=== PATIENT | female | born 1950 | race Caucasian/White ===

== ENCOUNTER 2017-10-17 10:18 | Emergency (ER) | payer MEDICARE ==
[2017-10-17 10:31] VITALS: RESP 16
--- NOTE | 2017-10-17 11:18 | ED ---
General Adult HPI - General Chief complaint: Weakness Stated complaint: dizziness/not able to walk Time Seen by Provider: 10/17/17 10:41 Source: patient Mode of arrival: wheelchair Limitations: no limitations - History of Present Illness Initial comments: Is a 67 show failed a history of H of fibrillation on Zarrella toe and a pacemaker who presents emergency department for difficulty with ambulation. She states it started on October 03 and has gradually worsened. She states that she feels like she is very off balance when she emulate speech she's had a couple of falls in the last couple of weeks and feels like her legs are giving out on her at times. She states otherwise she feels completely normal. She states that she normally can ambulate without assistance. She states that she is very active and does go to the gym. She does not feel like it is a deconditioning problem. She's been seeing her primary doctor who performed a CAT scan yesterday that was negative. She's been treated for possible labyrinthitis and sinus infections on antibiotics. She was just started on a new antibiotic and steroids. She states that she feels like he she is worsening. She denies any dysphagia, dysarthria, diplopia. She denies any focal weakness in her upper extremities. No back pain. No other complaints. - Related Data Home Medications Medication Instructions Recorded Confirmed Carvedilol [Coreg] 25 mg PO BID 10/17/17 10/17/17 Enalapril [Vasotec] 10 mg PO BID 10/17/17 10/17/17 Furosemide [Lasix] 40 mg PO DAILY 10/17/17 10/17/17 Rivaroxaban [Xarelto] 20 mg PO AC-SUPPER 10/17/17 10/17/17 Vits A,C,E/Lutein/Minerals 1 tab PO DAILY 10/17/17 10/17/17 [Ocuvite with Lutein Tablet] Allergies Allergy/AdvReac Type Severity Reaction Status Date / Time No Known Allergies Allergy Verified 10/17/17 10:36 Review of Systems ROS Statement: Those systems with pertinent positive or pertinent negative responses have been documented in the HPI. ROS Other: All systems not noted in ROS Statement are negative. Past Medical History Past Medical History: Atrial Fibrillation History of Any Multi-Drug Resistant Organisms: None Reported Past Surgical History: Joint Replacement, Pacemaker Additional Past Surgical History / Comment(s): bilateral knee replacement Past Psychological History: No Psychological Hx Reported Smoking Status: Never smoker Past Alcohol Use History: None Reported Past Drug Use History: None Reported General Exam - General Exam Comments Initial Comments: Constitutional: Awake alert Appears comfortable Head: Normocephalic atraumatic Eyes: no conjunctival injection No scleral icterus EOMI, pupils are 4 mm reactive bilaterally Neck: No JVD Supple Heart: Regular rate rhythm normal S1-S2 no murmurs Lungs: Clear to auscultation bilaterally No wheezing No rales Abdomen: Soft nondistended nontender Extremities: Non edematous DP pulses intact Radial pulses intact Neuro: A&Ox3 cranial nerves II through XII are grossly intact, 5 out of 5 strength in upper and lower [place] bilaterally, 5 out of 5 strength with dorsiflexion and plantar flexion of the feet bilaterally, 2 out of 4 patellar reflexes bilaterally, sensation intact to light touch in all extremities, normal finger to nose and heel to wilson testing. The patient has a very unsteady gait when she ambulates and stumbles and was falls over. Very unsteady on her feet Psych: Appropriate mood and affect Limitations: no limitations Course Vital Signs 10/17/17 10:27 Temperature 98.3 F Pulse Rate 85 Respiratory 16 Rate Blood Pressure 146/94 O2 Sat by Pulse 98 Oximetry EKG Findings - EKG Comments: EKG Findings:: EKG is showing intrafibrillation with intermittent paced beats at a rate 89. No abnormal ST segment changes or T-wave or her QTC is 452. Other intervals normal. No ectopy. Medical Decision Making - Medical Decision Making This is a 67-year-old female who presents emergency department for difficulty with ambulation. I examination she was very unsteady when she walked. Spoke with neurology on-call about the case and he stated that since she is she cannot get an MRI. She needs to have her repeat CAT scan which was negative for stroke however did show sinusitis. I reviewed the case with the patient stated that she felt more comfortable standing the hospital because of her unsteadiness that we could keep her here however stated that she rather go home. Her primary doctor prescribed her antibiotics and steroids which she is going to start taking today. That would probably help her symptoms if she has vestibular neuritis. She needs follow-up with neurology and also ENT. He'll return emergency Department if she has worsening symptoms. All questions were answered. - Lab Data Result diagrams: 10/17/17 11:20 10/17/17 11:20 Lab Results 10/17/17 10/17/17 10/17/17 Range/Units 11:20 11:20 11:24 WBC 8.3 (3.8-10.6) k/uL RBC 5.34 (3.80-5.40) m/uL Hgb 15.8 (11.4-16.0) gm/dL Hct 50.2 H (34.0-46.0) % MCV 94.1 (80.0-100.0) fL MCH 29.6 (25.0-35.0) pg MCHC 31.4 (31.0-37.0) g/dL RDW 13.5 (11.5-15.5) % Plt Count 205 (150-450) k/uL Neutrophils % 69 % Lymphocytes % 22 % Monocytes % 5 % Eosinophils % 2 % Basophils % 1 % Neutrophils # 5.8 (1.3-7.7) k/uL Lymphocytes # 1.8 (1.0-4.8) k/uL Monocytes # 0.4 (0-1.0) k/uL Eosinophils # 0.2 (0-0.7) k/uL Basophils # 0.0 (0-0.2) k/uL Sodium 141 (137-145) mmol/L Potassium 4.6 (3.5-5.1) mmol/L Chloride 104 (98-107) mmol/L Carbon Dioxide 29 (22-30) mmol/L Anion Gap 8 mmol/L BUN 22 H (7-17) mg/dL Creatinine 1.02 (0.52-1.04) mg/dL Est GFR (MDRD) Af Amer >60 (>60 ml/min/1.73 sqM) Est GFR (MDRD) Non-Af 54 (>60 ml/min/1.73 sqM) Glucose 104 H (74-99) mg/dL Calcium 9.7 (8.4-10.2) mg/dL Magnesium 1.9 (1.6-2.3) mg/dL Total Bilirubin 0.8 (0.2-1.3) mg/dL AST 23 (14-36) U/L ALT 29 (9-52) U/L Alkaline Phosphatase 65 (38-126) U/L Total Protein 6.8 (6.3-8.2) g/dL Albumin 3.8 (3.5-5.0) g/dL Urine Color Light Yellow Urine Appearance Clear (Clear) Urine pH 5.0 (5.0-8.0) Ur Specific [place] 1.003 (1.001-1.035) Urine Protein Negative (Negative) Urine Glucose (UA) Negative (Negative) Urine Ketones Negative (Negative) Urine Blood Negative (Negative) Urine Nitrite Negative (Negative) Urine Bilirubin Negative (Negative) Urine Urobilinogen <2.0 (<2.0) mg/dL Ur Leukocyte Esterase Trace H (Negative) Urine WBC 1 (0-5) /hpf Ur Squamous Epith Cells <1 (0-4) /hpf Urine Mucus Rare H (None) /hpf Disposition Clinical Impression: Vertigo Disposition: HOME SELF-CARE Condition: Stable Instructions: Dizziness (ED) Referrals: Betsy Castillo MD [Primary Care Provider] - 1-2 days
[2017-10-17 11:51] LABS: Basophils % (A) 1 %; Eosinophils # (A) 0.2 k/uL (0-0.7); Eosinophils % (A) 2 %; HCT 50.2 % (34.0-46.0); HGB 15.8 gm/dL (11.4-16.0); Lymphocytes # (A) 1.8 k/uL (1.0-4.8); Lymphocytes % (A) 22 %; MCH 29.6 pg (25.0-35.0); MCHC 31.4 g/dL (31.0-37.0); MCV 94.1 fL (80.0-100.0); Mean Platelet Volume 7.5; Monocytes # (A) 0.4 k/uL (0-1.0); Monocytes % (A) 5 %; Neutrophils # (A) 5.8 k/uL (1.3-7.7); Neutrophils % (A) 69 %; Platelet Count 205 k/uL (150-450); RBC 5.34 m/uL (3.80-5.40); RDW 13.5 % (11.5-15.5); WBC 8.3 k/uL (3.8-10.6)
[2017-10-17 11:55] LABS: Appearance,Urine Clear (Clear); Bilirubin,Urine Negative (Negative); Blood,Urine Negative (Negative); Color,Urine Light Yellow; Glucose,Urine (UA) Negative (Negative); Ketones,Urine Negative (Negative); Leukocyte Esterase,Urine Trace (Negative); Mucus,Urine Rare /hpf; Nitrite,Urine Negative (Negative); Protein,Urine Negative (Negative); Specific Gravity,Urine 1.003 (1.001-1.035); Squamous Epithelial Cell,Urine <1 /hpf (0-4); Urobilinogen,Urine <2.0 mg/dL (<2.0); WBC,Urine 1 /hpf (0-5)
[2017-10-17 12:03] LABS: ALT 29 U/L (9-52); AST 23 U/L (14-36); Albumin 3.8 g/dL (3.5-5.0); Alkaline Phosphatase 65 U/L (38-126); Anion Gap 8 mmol/L; Blood Urea Nitrogen 22 mg/dL (7-17); Calcium 9.7 mg/dL (8.4-10.2); Carbon Dioxide 29 mmol/L (22-30); Chloride 104 mmol/L (98-107); Glucose 104 mg/dL (74-99); Magnesium 1.9 mg/dL (1.6-2.3); Potassium 4.6 mmol/L (3.5-5.1); Sodium 141 mmol/L (137-145); Total Bilirubin 0.8 mg/dL (0.2-1.3); Total Protein 6.8 g/dL (6.3-8.2)
--- NOTE | 2017-10-17 12:04 | CT ---
EXAMINATION TYPE: CT brain wo con DATE OF EXAM: 10/17/2017 COMPARISON: NONE HISTORY: Dizziness, difficulty ambulating CT DLP: 981.7 mGycm Automated exposure control for dose reduction was used. TECHNIQUE: Unenhanced CT brain was performed per standard protocol. FINDINGS: There is no acute intracranial hemorrhage, mass effect, or midline shift identified. The v entricles and sulci are within normal limits in size. The globes are intact. There is complete opaci fication of the left maxillary sinus and small degree of mucosal thickening in the ethmoid sinuses. R emainder of the paranasal sinuses are well aerated as are the mastoid air cells. The frontal sinuses are hypoplastic. Minimal atherosclerosis is seen of the intracranial vasculature. IMPRESSION: 1. No acute intracranial hemorrhage, mass effect, or midline shift is seen. 2. Complete opacification of the left maxillary sinus and minimal mucosal thickening of the ethmoid s inuses.
--- NOTE | 2017-10-17 12:09 | XR ---
EXAMINATION TYPE: XR lumbar spine 2 or 3V DATE OF EXAM: 10/17/2017 CLINICAL HISTORY: Lower extremity weakness TECHNIQUE: Frontal and lateral views of the lumbar spine were obtained COMPARISON: None FINDINGS: There are 5 lumbar type vertebral bodies identified. The lumbar spine shows satisfactory alignment without evidence of acute fracture or dislocation. Vertebral body heights and disk space he ights are within normal limits. Moderate multilevel degenerative changes of the visualized thoracolum bar and lumbosacral spine are seen as small anterior osteophytes, intervertebral disc space narrowing , facet arthropathy, endplate sclerosis. There is a mild levoscoliotic curvature of the lumbar spine. The overlying soft tissue appears unremarkable. IMPRESSION: 1. No acute fracture or dislocation is seen in the lumbar spine. 2. Moderate multilevel degenerative changes of the visualized thoracolumbar spine and levoscoliosis o f the lumbar spine.
[2017-10-17 12:44] VITALS: BP 141/70; PULSE 97; TEMP 97.1
== END 2017-10-17 12:44 | disposition home or self-care (01) ==
LOC: EC 10:18
DX: R42 Dizziness and giddiness (principal); R26.2 Difficulty in walking, not elsewhere classified; J32.9 Chronic sinusitis, unspecified; I48.91 Unspecified atrial fibrillation; Z95.0 Presence of cardiac pacemaker; Z96.653 Presence of artificial knee joint, bilateral; Z79.01 Long term (current) use of anticoagulants; Z79.899 Other long term (current) drug therapy
CPT/HCPCS: 36415; 70450; 72100; 80053; 81001; 83735; 85025; 93005; 99285

== ENCOUNTER 2017-12-05 13:52 | Inpatient (IN) | payer MEDICARE ==
[2017-12-05] MEDS ORDERED: ACETAMINOPHEN TAB 500 MG TAB PO STA (14:20)
[2017-12-05] MEDS ORDERED: IBUPROFEN 600 MG TAB PO STA (14:20)
--- NOTE | 2017-12-05 14:32 | ED ---
General Adult HPI - General Chief complaint: Urogenital Stated complaint: Poss UTI Time Seen by Provider: 12/05/17 14:03 Source: patient, RN notes reviewed Mode of arrival: EMS Limitations: no limitations - History of Present Illness Initial comments: 67-year-old female presents to the emergency department with for complaints of lower back pain 2 days. Patient says "her legs gave out" 2 days ago and states her back has been hurting since that time. Patient states she fell back and to her right side and denies hitting her head. Patient is not able to twist back but says it does hurt more when she flexes her back to a sitting position. Patient denies bowel dysfunction and states she had a bowel movement today. Patient states she has been urinating less and her De La Rosa output is less than normal but unsure of the measurement. Patient took a Percocet about 2 hours ago which has helped her back pain since that time. Patient did have surgery on her thoracic spine on November 16 for spinal stenosis according to the patient. She has been unable to follow up with the surgeon as directed because she cannot walk down the stairs to leave the house. Patient states she is also experiencing a urinary tract infection diagnosed by [facility]. She has had a de la rosa catheter in place since her surgery on the , and has been unable to follow up with the urologist as well. Her next appointment for the urologist is on December 14 in [place]. She states she noticed her urine was bloody and she has had fevers and chills and has felt fatigued. Patient denies any shortness of breath, coughing, chest pain, or abdominal pain. Patient does admit to some suprapubic tenderness but denies pain. - Related Data Home Medications Medication Instructions Recorded Confirmed Carvedilol [Coreg] 12.5 mg PO BID 10/17/17 12/05/17 Rivaroxaban [Xarelto] 20 mg PO AC-SUPPER 10/17/17 12/05/17 Cephalexin [Keflex] 500 mg PO Q8H 12/05/17 12/05/17 Docusate [Colace] 100 mg PO DAILY 12/05/17 12/05/17 Famotidine [Pepcid] 20 mg PO DAILY 12/05/17 12/05/17 Naproxen Sodium [Aleve] 220 mg PO BID PRN 12/05/17 12/05/17 Zinc 50 mg PO DAILY 12/05/17 12/05/17 oxyCODONE-APAP 5-325MG [Percocet 1 tab PO BID PRN 12/05/17 12/05/17 5-325 mg] Allergies Allergy/AdvReac Type Severity Reaction Status Date / Time No Known Allergies Allergy Verified 12/05/17 14:34 Review of Systems ROS Statement: Those systems with pertinent positive or pertinent negative responses have been documented in the HPI. ROS Other: All systems not noted in ROS Statement are negative. Past Medical History Past Medical History: Atrial Fibrillation History of Any Multi-Drug Resistant Organisms: None Reported Past Surgical History: Joint Replacement, Pacemaker Additional Past Surgical History / Comment(s): bilateral knee replacement Past Psychological History: No Psychological Hx Reported Smoking Status: Never smoker Past Alcohol Use History: None Reported Past Drug Use History: None Reported General Exam Limitations: no limitations General appearance: alert, in no apparent distress Head exam: Present: atraumatic, normocephalic, normal inspection Eye exam: Present: normal appearance, PERRL, EOMI. Absent: scleral icterus, conjunctival injection, periorbital swelling ENT exam: Present: normal exam Neck exam: Present: normal inspection. Absent: tenderness, meningismus, lymphadenopathy Respiratory exam: Present: normal lung sounds bilaterally. Absent: respiratory distress, wheezes, rales, rhonchi, stridor Cardiovascular Exam: Present: tachycardia, irregular rhythm. Absent: systolic murmur, diastolic murmur, rubs, gallop GI/Abdominal exam: Present: soft, normal bowel sounds, other (large body habitus ). Absent: distended, tenderness, guarding, rebound, rigid Course Vital Signs 12/05/17 12/05/17 12/05/17 14:08 14:30 15:35 Temperature 100.5 F H 100 F H Pulse Rate 113 H 119 H 122 H Respiratory 20 20 20 Rate Blood Pressure 115/58 104/72 100/66 O2 Sat by Pulse 98 92 L 94 L Oximetry EKG Findings - EKG Comments: EKG Findings:: Atrial fibrillation with RVR, ventricular rate 124 bpm, QRS duration 80, left axis deviation Medical Decision Making - Medical Decision Making 67-year-old female presents for outpatient treatment of a UTI. Patient states she has had a De La Rosa catheter inserted since her thoracic spine surgery on 1 month ago. Patient states it has been changed regularly but she started noticing blood in her urine as well as fevers and chills and fatigue. She also admits to slight suprapubic pressure but denies pain. [facility] started her on Keflex 1 day ago to treat the UTI however she still felt poorly today so presents to ED. Patient had a temp of 100.5 and a pulse of 113 on presentation and was diagnosed with sepsis. CBC, CMP, lactate, and urinalysis were ordered. Patient did have a white count and evidence of a UTI, lactate within normal limits. She was given Tylenol, ibuprofen to lower the fever as well as 2 L bolus of saline. Blood cultures and urine culture were ordered. She also complained of lower back pain after a fall 2 days ago. Patient denied hitting her head. Upon x-ray patient did have a compression fracture of L3 of indeterminate age. She is currently taking Percocet for pain relief which is helping with the pain. Spoke with Dr. Thomas and patient will be admitted to hospitalist. Patient does have atrial fibrillation in the 120s, most likely due to fever. Cardiology consulted. - Lab Data Result diagrams: 12/05/17 14:33 12/05/17 14:33 Lab Results 12/05/17 12/05/17 12/05/17 Range/Units 14:33 14:33 14:33 WBC 11.5 H (3.8-10.6) k/uL RBC 4.22 (3.80-5.40) m/uL Hgb 12.4 D (11.4-16.0) gm/dL Hct 37.6 (34.0-46.0) % MCV 89.1 D (80.0-100.0) fL MCH 29.4 (25.0-35.0) pg MCHC 33.0 (31.0-37.0) g/dL RDW 13.3 (11.5-15.5) % Plt Count 325 (150-450) k/uL Neutrophils % 85 % Lymphocytes % 8 % Monocytes % 4 % Eosinophils % 2 % Basophils % 0 % Neutrophils # 9.8 H (1.3-7.7) k/uL Lymphocytes # 0.9 L (1.0-4.8) k/uL Monocytes # 0.4 (0-1.0) k/uL Eosinophils # 0.2 (0-0.7) k/uL Basophils # 0.0 (0-0.2) k/uL PT (9.0-12.0) sec INR (<1.2) APTT (22.0-30.0) sec Sodium 135 L (137-145) mmol/L Potassium 5.1 (3.5-5.1) mmol/L Chloride 102 (98-107) mmol/L Carbon Dioxide 24 (22-30) mmol/L Anion Gap 9 mmol/L BUN 20 H (7-17) mg/dL Creatinine 0.90 (0.52-1.04) mg/dL Est GFR (CKD-EPI)AfAm 77 (>60 ml/min/1.73 sqM) Est GFR (CKD-EPI)NonAf 67 (>60 ml/min/1.73 sqM) Glucose 104 H (74-99) mg/dL Plasma Lactic Acid [place] (0.7-2.0) mmol/L Calcium 8.9 (8.4-10.2) mg/dL Total Bilirubin 0.7 (0.2-1.3) mg/dL AST 16 (14-36) U/L ALT 22 (9-52) U/L Alkaline Phosphatase 107 (38-126) U/L Total Protein 6.2 L (6.3-8.2) g/dL Albumin 2.8 L (3.5-5.0) g/dL Urine Color Light Red Urine Appearance Cloudy H (Clear) Urine pH 5.5 (5.0-8.0) Ur Specific [place] 1.012 (1.001-1.035) Urine Protein 1+ H (Negative) Urine Glucose (UA) Negative (Negative) Urine Ketones Negative (Negative) Urine Blood Large H (Negative) Urine Nitrite Negative (Negative) Urine Bilirubin Negative (Negative) Urine Urobilinogen 2.0 (<2.0) mg/dL Ur Leukocyte Esterase Large H (Negative) Urine RBC >182 H (0-5) /hpf Urine WBC 162 H (0-5) /hpf Urine WBC Clumps Many H (None) /hpf Urine Mucus Rare H (None) /hpf 12/05/17 12/05/17 Range/Units 14:33 14:33 WBC (3.8-10.6) k/uL RBC (3.80-5.40) m/uL Hgb (11.4-16.0) gm/dL Hct (34.0-46.0) % MCV (80.0-100.0) fL MCH (25.0-35.0) pg MCHC (31.0-37.0) g/dL RDW (11.5-15.5) % Plt Count (150-450) k/uL Neutrophils % % Lymphocytes % % Monocytes % % Eosinophils % % Basophils % % Neutrophils # (1.3-7.7) k/uL Lymphocytes # (1.0-4.8) k/uL Monocytes # (0-1.0) k/uL Eosinophils # (0-0.7) k/uL Basophils # (0-0.2) k/uL PT 12.3 H (9.0-12.0) sec INR 1.3 H (<1.2) APTT 29.4 (22.0-30.0) sec Sodium (137-145) mmol/L Potassium (3.5-5.1) mmol/L Chloride (98-107) mmol/L Carbon Dioxide (22-30) mmol/L Anion Gap mmol/L BUN (7-17) mg/dL Creatinine (0.52-1.04) mg/dL Est GFR (CKD-EPI)AfAm (>60 ml/min/1.73 sqM) Est GFR (CKD-EPI)NonAf (>60 ml/min/1.73 sqM) Glucose (74-99) mg/dL Plasma Lactic Acid [place] 1.0 (0.7-2.0) mmol/L Calcium (8.4-10.2) mg/dL Total Bilirubin (0.2-1.3) mg/dL AST (14-36) U/L ALT (9-52) U/L Alkaline Phosphatase (38-126) U/L Total Protein (6.3-8.2) g/dL Albumin (3.5-5.0) g/dL Urine Color Urine Appearance (Clear) Urine pH (5.0-8.0) Ur Specific [place] (1.001-1.035) Urine Protein (Negative) Urine Glucose (UA) (Negative) Urine Ketones (Negative) Urine Blood (Negative) Urine Nitrite (Negative) Urine Bilirubin (Negative) Urine Urobilinogen (<2.0) mg/dL Ur Leukocyte Esterase (Negative) Urine RBC (0-5) /hpf Urine WBC (0-5) /hpf Urine WBC Clumps (None) /hpf Urine Mucus (None) /hpf Disposition Clinical Impression: Sepsis, Urinary tract infection, Compression fracture, Atrial fibrillation Disposition: ADMITTED IP TO THIS HOSP Condition: Good Referrals: Betsy Castillo MD [Primary Care Provider] - 1-2 days Time of Disposition: 16:09 Decision Date: 12/05/17 Decision Time: 16:09
[2017-12-05] MEDS: SODIUM CHLORIDE 0.9% 500 ML IV SCH ×2 (14:44→15:51)
[2017-12-05 14:58] LABS: Basophils % (A) 0 %; Eosinophils # (A) 0.2 k/uL (0-0.7); Eosinophils % (A) 2 %; HCT 37.6 % (34.0-46.0); Lymphocytes # (A) 0.9 k/uL (1.0-4.8); Lymphocytes % (A) 8 %; MCH 29.4 pg (25.0-35.0); Mean Platelet Volume 7.2; Monocytes # (A) 0.4 k/uL (0-1.0); Monocytes % (A) 4 %; Neutrophils # (A) 9.8 k/uL (1.3-7.7); Neutrophils % (A) 85 %; Platelet Count 325 k/uL (150-450); RBC 4.22 m/uL (3.80-5.40); RDW 13.3 % (11.5-15.5); WBC 11.5 k/uL (3.8-10.6)
[2017-12-05 15:05] LABS: Appearance,Urine Cloudy (Clear); Bilirubin,Urine Negative (Negative); Blood,Urine Large (Negative); Color,Urine Light Red; Glucose,Urine (UA) Negative (Negative); HGB 12.4 gm/dL (11.4-16.0); Ketones,Urine Negative (Negative); Leukocyte Esterase,Urine Large (Negative); MCV 89.1 fL (80.0-100.0); Mucus,Urine Rare /hpf; Nitrite,Urine Negative (Negative); PH, Urine 5.5 (5.0-8.0); Protein,Urine 1+ (Negative); RBC,Urine >182 /hpf (0-5); Specific Gravity,Urine 1.012 (1.001-1.035); WBC,Urine 162 /hpf (0-5)
[2017-12-05 15:08] LABS: INR 1.3 (<1.2); Partial Thromboplastin Time 29.4 sec (22.0-30.0); Prothrombin Time 12.3 sec (9.0-12.0)
[2017-12-05 15:11] LABS: Albumin 2.8 g/dL (3.5-5.0); Calcium 8.9 mg/dL (8.4-10.2); Potassium 5.1 mmol/L (3.5-5.1); Total Bilirubin 0.7 mg/dL (0.2-1.3); Total Protein 6.2 g/dL (6.3-8.2)
--- NOTE | 2017-12-05 15:28 | XR ---
EXAM TYPE: LUMBAR SPINE X RAY SERIES COMPARISON: 10/17/2017 HISTORY: Lower back pain TECHNIQUE: 4 views are submitted. FINDINGS: There is a scoliotic curvature with multilevel degenerative disc disease. Severe changes at L2-3, L4- 5 and L5-S1. Superior endplate compression deformity of L3. Hypertrophic spurring at all levels. The pedicles are intact. IMPRESSION: 1. Scoliosis with multilevel degenerative severe disc disease. 2. There is a mild superior endplate compression deformity of L3 of indeterminate age.
--- NOTE | 2017-12-05 15:30 | XR ---
EXAMINATION TYPE: XR thoracic spine complete DATE OF EXAM: 12/05/2017 COMPARISON: NONE HISTORY: 67-year-old female upper back pain after fall TECHNIQUE: 3 views FINDINGS: C3-C4 posterior thoracic fusion hardware is present. We note prominent downward angulation of the tra nspedicular screws. The left C4 screw appears somewhat laterally positioned and the right C4 screw se ems to extend through the C4-C5 disc space and into the superior C5 endplate. 12-appearing thoracic vertebral bodies are present. There is bulky anterior endplate spondylosis mid to lower thoracic spine. Overall vertebral body heights appear maintained and alignment is preserved. Right ventricular right atrial AICD leads are visualized. IMPRESSION: 1. C3-C4 posterior thoracic fusion hardware. There is unusual downward angulation of the transpedicul ar screws especially the C4 screws. The right C4 screw seems to extend into the C4-C5 disc space and into the superior C5 endplate. The left C4 screw appears laterally positioned. Correlate with outside priors in regards to stability or if this represents an acute shift in hardware positioning. 2. Bulky changes of DISH in the mid to lower thoracic spine.
[2017-12-05] MEDS ORDERED: SODIUM CHLORIDE 0.9% 1,000 ML IV STA (15:38)
[2017-12-05] MEDS ORDERED: ONDANSETRON 4 MG/2 ML VIAL IVP PRN (15:39)
[2017-12-05] MEDS ORDERED: NALOXONE 0.4 MG/ML 1 ML VIAL IV PRN (15:39)
[2017-12-05] MEDS ORDERED: IBUPROFEN 400 MG TAB PO PRN (15:39)
[2017-12-05] MEDS ORDERED: cefTRIAXone IN SWFI 1,000 MG/10 ML SYRINGE IVP STA (15:50)
[2017-12-05] MEDS: SODIUM CHLORIDE 0.9% 1,000 ML IV SCH (17:32)
[2017-12-05] MEDS: oxyCODONE-APAP 5-325MG 1 EACH TAB PO PRN (22:02)
--- NOTE | 2017-12-06 00:16 | P.HPIM ---
History of Present Illness H&P Date: 12/05/17 Chief Complaint: Right flank pain Patient is a 67-year-old female with a known history of atrial fibrillation on antibiotics in for recently had spinal surgery cervical about a month ago [facility] with complaints of right lower back pain for the past 2 days. Patient says that her legs gave away about 2 days back and fell on her right side. Denies any hitting head. Patient is not able to twist back but says it does hurt more when she flexes her back to a sitting position. Patient denies bowel dysfunction and states she had a bowel movement today. Patient states she has been urinating less and her De La Rosa output is less than normal but unsure of the measurement. Patient took a Percocet about 2 hours ago which has helped her back pain since that time. Patient did have surgery on her thoracic spine on November 16 for spinal stenosis according to the patient. She has been unable to follow up with the surgeon as directed because she cannot walk down the stairs to leave the house. Patient states she is also experiencing burning urine and was diagnosed by [facility] with urinary tract infection. Patient is currently taking Keflex since yesterday.. She has had a de la rosa catheter in place since her surgery on the , and has been unable to follow up with the urologist as well. Patient had urine retention followed by surgery and since then patient is on De La Rosa catheter. Her next appointment for the urologist is on December 14 in [place]. She states she noticed her urine was bloody and she has had fevers and chills and has felt fatigued. Patient denies any shortness of breath, coughing, chest pain, or abdominal pain. Patient does admit to some suprapubic tenderness but denies pain. Patient was found have significant pyuria and the urinalysis. urine culture was sent. EKG showed atrial fibrillation with rapid regular rate Patient was febrile and tachycardic on admission. Patient had lumbar and thoracic spine x-ray was done in the ER. Review of Systems Constitutional: Patient denies any fever or chills . No generalized weakness or weight loss. Abdomen: Patient denied nausea vomiting and diarrhea and abdominal pain. Right sided flank pain and back pain. No incontinence Cardiovascular: Patient denies any chest pain or short of breath no palpitations. Respiratory: patient denied any cough is from production. No shortness of breath Neurologic: Patient denied any numbness or tingling headache. Musculoskeletal: Patient denies any complaints of joint swelling or deformity. Skin: Negative Psychiatric: Negative Endocrine: No heat or cold intolerance. No recent weight gain. Genitourinary: No dysuria or hematuria. All other 14 point ROS negative except the above Past Medical History Past Medical History: Atrial Fibrillation History of Any Multi-Drug Resistant Organisms: None Reported Past Surgical History: Joint Replacement, Pacemaker Additional Past Surgical History / Comment(s): bilateral knee replacement Past Psychological History: No Psychological Hx Reported Smoking Status: Never smoker Past Alcohol Use History: None Reported Past Drug Use History: None Reported Medications and Allergies Home Medications Medication Instructions Recorded Confirmed Type Carvedilol [Coreg] 12.5 mg PO BID 10/17/17 12/05/17 History Rivaroxaban [Xarelto] 20 mg PO AC-SUPPER 10/17/17 12/05/17 History Cephalexin [Keflex] 500 mg PO Q8H 12/05/17 12/05/17 History Docusate [Colace] 100 mg PO DAILY 12/05/17 12/05/17 History Famotidine [Pepcid] 20 mg PO DAILY 12/05/17 12/05/17 History Naproxen Sodium [Aleve] 220 mg PO BID PRN 12/05/17 12/05/17 History Zinc 50 mg PO DAILY 12/05/17 12/05/17 History oxyCODONE-APAP 5-325MG [Percocet 1 tab PO BID PRN 12/05/17 12/05/17 History 5-325 mg] Allergies Allergy/AdvReac Type Severity Reaction Status Date / Time No Known Allergies Allergy Verified 12/05/17 14:34 Physical Exam Vitals: Vital Signs Temp Pulse Resp BP Pulse Ox 12/05/17 16:37 114 H 20 104/65 96 12/05/17 15:35 100 F H 122 H 20 100/66 94 L 12/05/17 14:30 119 H 20 104/72 92 L 12/05/17 14:08 100.5 F H 113 H 20 115/58 98 Intake and Output 12/05/17 12/05/17 12/05/17 06:59 14:59 22:59 Other: Voiding Method Indwelling Catheter Weight 136.078 kg Patient Weight 12/06/17 06:59 Weight 136.078 kg PHYSICAL EXAMINATION: Patient is lying in the bed comfortably, no acute distress, awake alert and oriented.. HEENT: Normocephalic. Neck is supple. Pupils reactive. Nostrils clear. Oral cavity is moist. Ears reveal no drainage. Cervical spine surgical scar is intact. Neck reveals no JVD, carotid bruits, or thyromegaly. CHEST EXAMINATION: Trachea is central. Symmetrical expansion. Lung peter clear to auscultation and percussion. CARDIAC: Normal S1, S2 with no gallops. No murmurs irregularly irregular pulse ABDOMEN: Soft. Bowel sounds normal. No organomegaly. No abdominal bruits. Extremities: 1+ edema. No clubbing or cyanosis Neurologically awake, alert, oriented x3 with well-coordinated movements. No focal deficits noted Skin: No rash or skin lesions. Psychiatric: Cooperative. Nonsuicidal Musculoskeletal: No joint swelling or deformity. Normal range of motion. Results CBC & Chem 7: 12/05/17 14:33 12/05/17 14:33 Labs: Abnormal Lab Results - Last 24 Hours (Table) 12/05/17 12/05/17 12/05/17 Range/Units 14:33 14:33 14:33 WBC 11.5 H (3.8-10.6) k/uL Neutrophils # 9.8 H (1.3-7.7) k/uL Lymphocytes # 0.9 L (1.0-4.8) k/uL PT (9.0-12.0) sec INR (<1.2) Sodium 135 L (137-145) mmol/L BUN 20 H (7-17) mg/dL Glucose 104 H (74-99) mg/dL Total Protein 6.2 L (6.3-8.2) g/dL Albumin 2.8 L (3.5-5.0) g/dL Urine Appearance Cloudy H (Clear) Urine Protein 1+ H (Negative) Urine Blood Large H (Negative) Ur Leukocyte Esterase Large H (Negative) Urine RBC >182 H (0-5) /hpf Urine WBC 162 H (0-5) /hpf Urine WBC Clumps Many H (None) /hpf Urine Mucus Rare H (None) /hpf 12/05/17 Range/Units 14:33 WBC (3.8-10.6) k/uL Neutrophils # (1.3-7.7) k/uL Lymphocytes # (1.0-4.8) k/uL PT 12.3 H (9.0-12.0) sec INR 1.3 H (<1.2) Sodium (137-145) mmol/L BUN (7-17) mg/dL Glucose (74-99) mg/dL Total Protein (6.3-8.2) g/dL Albumin (3.5-5.0) g/dL Urine Appearance (Clear) Urine Protein (Negative) Urine Blood (Negative) Ur Leukocyte Esterase (Negative) Urine RBC (0-5) /hpf Urine WBC (0-5) /hpf Urine WBC Clumps (None) /hpf Urine Mucus (None) /hpf Assessment and Plan Assessment: Sepsis secondary to acute urinary tract infection. Complicated with De La Rosa catheter. Urinary tract infections related to indwelling De La Rosa catheter Hematuria likely due to UTI. Follow-up H&H Status post mechanical fall due to legs gave away Atrial fibrillation with rapid ventricular rate Recent cervical spine surgery about a month back Urine retention. On De La Rosa catheter since surgery Morbid obesity with BMI 51.5 Hypotension on admission due to sepsis and pain medications as well as rapid ventricular rate Osteoarthritis Plan: Patient will be continued on antibiotics and cough ceftriaxone. Follow-up urine cultures. Ultrasound RENAL WILL BE OBTAINED. Patient had x-ray of the cervical and lumbar spine was done. Lumbar spine showed L3 compression fracture partial. Otherwise patient denied any lower extremity weakness or shooting down pain from the back. No bowel incontinence. We will continue with the metoprolol and start back on anticoagulation. Monitor H&H. Consider urology consult if the patient continues to have hematuria which is clearing up at this time. Further recommendations based on the clinical course. Discussed with her at bedside and with the patient as well. We will continue to follow closely. Time with Patient: Greater than 30
[2017-12-06] MEDS: CARVEDILOL 12.5 MG TAB PO SCH ×3 (00:21→19:10)
[2017-12-06] MEDS: oxyCODONE-APAP 5-325MG 1 EACH TAB PO PRN ×2 (04:01→22:03)
[2017-12-06] MEDS: SODIUM CHLORIDE 0.9% 1,000 ML IV SCH ×2 (04:21→17:00)
[2017-12-06 07:02] LABS: Basophils % (A) 0 %; Eosinophils # (A) 0.1 k/uL (0-0.7); Eosinophils % (A) 1 %; HGB 11.4 gm/dL (11.4-16.0); Hypochromasia Slight; Lymphocytes # (A) 0.7 k/uL (1.0-4.8); Lymphocytes % (A) 7 %; MCH 28.8 pg (25.0-35.0); MCHC 31.8 g/dL (31.0-37.0); MCV 90.8 fL (80.0-100.0); Mean Platelet Volume 7.3; Monocytes # (A) 0.3 k/uL (0-1.0); Monocytes % (A) 3 %; Neutrophils # (A) 9.7 k/uL (1.3-7.7); Neutrophils % (A) 89 %; Platelet Count 290 k/uL (150-450); RBC 3.97 m/uL (3.80-5.40); RDW 13.2 % (11.5-15.5)
[2017-12-06 07:17] LABS: Albumin 2.5 g/dL (3.5-5.0); Calcium 8.8 mg/dL (8.4-10.2); Potassium 4.9 mmol/L (3.5-5.1); Total Bilirubin 0.7 mg/dL (0.2-1.3); Total Protein 5.6 g/dL (6.3-8.2)
[2017-12-06] MEDS ORDERED: LORazepam 2 MG/ML INJ ONE (08:57)
[2017-12-06] MEDS: LORazepam 2 MG/ML INJ IV PRN (09:12)
[2017-12-06] MEDS ORDERED: DILTIAZEM 50 MG in SODIUM CHLORIDE 0.9% 40 ML IV SCH (09:15)
[2017-12-06 09:22] LABS: Glucose,Whole Blood 98 mg/dL (75-99)
--- NOTE | 2017-12-06 09:24 | XR ---
EXAMINATION TYPE: XR chest 1V portable DATE OF EXAM: 12/06/2017 Comparison: None Clinical History: 67-year-old female SOB Findings: Left anterior chest wall ICD generator right atrial and right ventricular leads. Portable technique i s limited due to leftward patient rotation, large patient body habitus, and suspected respiratory mot ion making it difficult to assess the AICD leads. Multiple EKG lines also project over the left lower hemithorax. Upper thoracic posterior spinal fusion hardware has been described previously. Heart mildly enlarged. Interstitial prominence. No sizable pleural effusion seen on the frontal view. Impression: 1. Mild cardiomegaly and interstitial prominence. Correlate to exclude mild CHF. No quynh pulmonary e kostas. 2. Limited assessment of the patient's AICD leads as above.
[2017-12-06] MEDS: DILTIAZEM 125 MG in SODIUM CHLORIDE 0.9% 100 ML IV SCH (09:35)
--- NOTE | 2017-12-06 09:35 | US ---
EXAMINATION TYPE: US kidneys/renal and bladder DATE OF EXAM: 12/06/2017 COMPARISON: NONE CLINICAL HISTORY: 67-year-old female hx of UTI Technique: Multiple sonographic images of the kidneys and bladder are obtained. FINDINGS: OUTSOLE SPLICER NOTES: Limited exam due to patient body habitus. Patient has bladder catheter. Right Kidney: 11.4 x 6.2 x 6.7 cm without hydronephrosis. Multiple cysts are present, largest centra lly in the kidney measuring 3.6 cm. Second largest is present bilaterally measuring 2.7 cm. These yulia ear largely likely simple cysts. Left Kidney: 12.7 x 5.4 x 6.2 cm. Limited visualization due to patient's inability to turn right late ral decubitus and patient large body habitus. Exophytic hypoechoic to anechoic lesion is present at t he midpole measuring 2.8 cm internal echoes probably artifactual. No evident hydronephrosis. Some residual urine is seen within the bladder which measures 4.9 cm. Suggestion of underlying cathet er. The Francois balloon itself is not well seen. IMPRESSION: 1. Technically limited exam due to patient's inability to position and patient body habitus. 2. No evident hydronephrosis. 3. Multiple bilateral renal lesions measuring up to 3.6 cm seem to represent simple cysts. There is l imited detail assessment of some of the lesions due to exam limitations. 4. Francois balloon is not well seen. Some of the catheter is seen. The bladder contains residual urine.
[2017-12-06 09:45] LABS: ABG Base Excess -3.4 mmol/L; ABG HCO3 21 mmol/L (21-25); ABG PCO2 32 mmHg (35-45); ABG PH 7.42 (7.35-7.45); ABG PO2 353 mmHg (83-108); ABG TCO2 22 mmol/L (19-24)
[2017-12-06 09:46] LABS: ABG Oxygen Saturation 99.3 % (94-97)
[2017-12-06] MEDS: PIPERACILLIN-TAZOBACTAM 3.375 GM in DEXTROSE/WATER 1 50ML.BAG IVPB SCH ×2 (09:51→17:20)
[2017-12-06] MEDS: DOCUSATE 100 MG CAP PO SCH (10:21)
[2017-12-06] MEDS: FAMOTIDINE 20 MG TAB PO SCH (10:21)
[2017-12-06] MEDS: ZINC SULFATE 220 MG CAP PO SCH (10:22)
--- NOTE | 2017-12-06 10:22 | P.CNPUL ---
<Mandi Rae M - Last Filed: 12/06/17 09:56> History of Present Illness Consult date: 12/06/17 Requesting physician: Inocente Orourke Reason for consult: dyspnea, abnormal CXR/CT, obstructive sleep apnea Chief complaint: Acute dyspnea, pulmonary edema, urosepsis History of present illness: Viola is a 67-year-old white female patient of Dr. Combs, who presented to the emergency department on 12/05/2017 at 1352 with complaints of lower back pain, weakness in bilateral lower extremities, gait dysfunction, a fall at home occurring 2 days ago. Patient complained of decreased urinary output from her indwelling catheter. Patient had a recent thoracic spine surgery on 11/16/2017 for spinal stenosis and has had the Francois catheter since the surgery. She was being followed by a visiting nurse at home. She also noted hematuria, and was having fever and chills and overall generalized fatigue. She denies any shortness of breath, denies any chest pain, denies any chest congestion and sputum production. Denies any abdominal pain. Was having suprapubic tenderness on admission, which is not present now. EKG showed atrial fibrillation with rapid ventricular rate, patient was febrile and tachycardic on admission, temp was 100.5F, and a heart rate was ranging from 113-122 BPM. Lumbar x-ray shows scoliosis with multilevel degenerative severe disc disease, mild superior endplate compression deformity of L3 of indeterminate age. Thoracic spine x-ray was taken and showed C3-C4 posterior thoracic fusion hardware. Urinalysis showed significant pyuria and bacteriuria. Patient was started on Rocephin, IV 0.9 was infusing at 100 ML per hour. This morning of rapid response team was called in regards to patient's experiencing severe respiratory distress, fevers, chills. Patient was placed on BiPAP support, and was transferred to the intensive care. Chest x-ray showed mild cardiomegaly and interstitial prominence, AICD was noted. Patient's other medical history includes obstructive sleep apnea, cardiomyopathy, status post AICD placement, osteoarthritis, hypertension, obesity, chronic atrial fibrillation, arthritis. Lactic acid on admission was 1.0, on admission to ICU was 1.5. Patient is maintaining normal blood pressures, no hypotension at this time. Blood gas showed pH is 7.42, pCO2 32, pO2 of 353, this was done and FiO2 of 100%. Sepsis protocol has been initiated, blood cultures urine cultures have been ordered and sent. And are pending at this time. Ultrasound of the kidney showed no evident hydronephrosis. At the time of evaluation patient is seen on BiPAP support, fairly comfortable, is awake alert, and able to respond appropriately. FiO2 was decreased down to 45%. Continue IV fluids at a rate of 100 ML per hour. Review of Systems All systems: negative Constitutional: Denies chills, Denies fever Eyes: denies blurred vision, denies pain Ears, nose, mouth and throat: Denies headache, Denies sore throat Cardiovascular: Denies chest pain, Denies shortness of breath Respiratory: Denies cough Gastrointestinal: Denies abdominal pain, Denies diarrhea, Denies nausea, Denies vomiting Genitourinary: Denies dysuria, Denies hematuria Musculoskeletal: Reports gait dysfunction, Reports limitation of motion, Reports muscle weakness, Denies myalgias Integumentary: Denies pruritus, Denies rash Neurological: Denies numbness, Denies weakness Psychiatric: Denies anxiety, Denies depression Endocrine: Denies fatigue, Denies weight change Past Medical History Past Medical History: Atrial Fibrillation History of Any Multi-Drug Resistant Organisms: None Reported Past Surgical History: Joint Replacement, Pacemaker Additional Past Surgical History / Comment(s): bilateral knee replacement Type of Cardiac Device: AICD Device Placement Date:: unknown Past Psychological History: No Psychological Hx Reported Smoking Status: Never smoker Past Alcohol Use History: None Reported Past Drug Use History: None Reported Medications and Allergies Home Medications Medication Instructions Recorded Confirmed Type Carvedilol [Coreg] 12.5 mg PO BID 10/17/17 12/05/17 History Rivaroxaban [Xarelto] 20 mg PO AC-SUPPER 10/17/17 12/05/17 History Cephalexin [Keflex] 500 mg PO Q8H 12/05/17 12/05/17 History Docusate [Colace] 100 mg PO DAILY 12/05/17 12/05/17 History Famotidine [Pepcid] 20 mg PO DAILY 12/05/17 12/05/17 History Naproxen Sodium [Aleve] 220 mg PO BID PRN 12/05/17 12/05/17 History Zinc 50 mg PO DAILY 03/06/18 03/06/18 History oxyCODONE-APAP 5-325MG [Percocet 1 tab PO BID PRN 12/05/17 12/05/17 History 5-325 mg] Allergies Allergy/AdvReac Type Severity Reaction Status Date / Time No Known Allergies Allergy Verified 12/05/17 14:34 Physical Exam Vitals: Vital Signs Temp Pulse Pulse Resp BP BP Pulse Ox 12/06/17 09:50 141 H 31 H 104/64 95 12/06/17 09:40 152 H 35 H 157/79 99 12/06/17 09:30 134 H 37 H 157/79 100 12/06/17 09:20 151 H 41 H 140/90 94 L 12/06/17 09:10 149 H 31 H 94 L 12/06/17 09:08 103 F H 146 H 46 H 97 12/06/17 08:20 102.9 F H 152 H 18 108/66 91 L 12/06/17 04:00 98.9 F 118 H 18 98/60 91 L 12/06/17 00:00 98.3 F 115 H 18 94/57 91 L 12/05/17 23:08 115 H 18 12/05/17 20:52 107 H 18 110/67 98 12/05/17 19:48 102 H 18 104/68 96 12/05/17 18:49 99 F 108 H 18 106/64 96 12/05/17 16:55 98.3 F 115 H 16 94/57 90 L 12/05/17 16:37 114 H 20 104/65 96 12/05/17 15:35 100 F H 122 H 20 100/66 94 L 12/05/17 14:30 119 H 20 104/72 92 L 12/05/17 14:08 100.5 F H 113 H 20 115/58 98 Intake and Output 12/05/17 12/06/17 12/06/17 22:59 06:59 14:59 Intake Total 100 600 Output Total 200 700 Balance -100 -100 Intake: Intake, IV Titration 100 600 Amount Sodium Chloride 0.9% 1, 100 600 000 ml @ 100 mls/hr IV . Q10H [facility] Rx#:[id number] Output: Urine 200 700 Other: Voiding Method Indwelling Catheter Indwelling Catheter Weight 136 kg 141 kg GENERAL EXAM: Alert, 67-year-old white female on BiPAP support, fairly comfortable in no apparent distress. HEAD: Normocephalic/atraumatic. EYES: Normal reaction of pupils, equal size. Conjunctiva pink, sclera white. NOSE: Clear with pink turbinates. THROAT: No erythema or exudates. NECK: No masses, no JVD, no thyroid enlargement, no adenopathy. CHEST: No chest wall deformity. Symmetrical expansion. LUNGS: Equal air entry with no crackles, wheeze, a few scattered rhonchi, no wheezes noted. CVS: Regular rate and rhythm, normal S1 and S2, no gallops, no murmurs, no rubs ABDOMEN: Soft, nontender. No hepatosplenomegaly, normal bowel sounds, no guarding or rigidity. EXTREMITIES: No clubbing, no edema, no cyanosis, 2+ pulses and upper and lower extremities. MUSCULOSKELETAL: Muscle strength and tone normal. SPINE: No scoliosis or deformity SKIN: No rashes CENTRAL NERVOUS SYSTEM: Alert and oriented -3. No focal deficits, tone is normal in all 4 extremities. PSYCHIATRIC: Alert and oriented -3. Appropriate affect. Intact judgment and insight. Results - Laboratory Findings CBC and BMP: 12/06/17 06:29 12/06/17 06:29 ABG ABG pH 7.42 (7.35-7.45) 12/06/17 09:38 ABG pCO2 32 mmHg (35-45) L 12/06/17 09:38 ABG pO2 353 mmHg (83-108) H 12/06/17 09:38 ABG O2 Saturation 99.3 % (94-97) H 12/06/17 09:38 PT/INR, D-dimer PT 12.3 sec (9.0-12.0) H 12/05/17 14:33 INR 1.3 (<1.2) H 12/05/17 14:33 D-Dimer 2.74 mg/L FEU (<0.60) H 12/06/17 09:03 Abnormal lab findings: Abnormal Labs 12/05/17 12/05/17 12/05/17 14:33 14:33 14:33 WBC 11.5 H Neutrophils # 9.8 H Lymphocytes # 0.9 L PT INR D-Dimer ABG pCO2 ABG pO2 ABG O2 Saturation Sodium 135 L BUN 20 H Glucose 104 H AST Total Protein 6.2 L Albumin 2.8 L Urine Appearance Cloudy H Urine Protein 1+ H Urine Blood Large H Ur Leukocyte Esterase Large H Urine RBC >182 H Urine WBC 162 H Urine WBC Clumps Many H Urine Mucus Rare H 12/05/17 12/06/17 12/06/17 14:33 06:29 06:29 WBC 11.0 H Neutrophils # 9.7 H Lymphocytes # 0.7 L PT 12.3 H INR 1.3 H D-Dimer ABG pCO2 ABG pO2 ABG O2 Saturation Sodium BUN Glucose 106 H AST 10 L Total Protein 5.6 L Albumin 2.5 L Urine Appearance Urine Protein Urine Blood Ur Leukocyte Esterase Urine RBC Urine WBC Urine WBC Clumps Urine Mucus 12/06/17 12/06/17 09:03 09:38 WBC Neutrophils # Lymphocytes # PT INR D-Dimer 2.74 H ABG pCO2 32 L ABG pO2 353 H ABG O2 Saturation 99.3 H Sodium BUN Glucose AST Total Protein Albumin Urine Appearance Urine Protein Urine Blood Ur Leukocyte Esterase Urine RBC Urine WBC Urine WBC Clumps Urine Mucus - Diagnostic Findings Chest x-ray: report reviewed Additional studies: Lumbar and thoracic spine, twelve-lead EKG, and abdomen/bladder ultrasound reviewed Assessment and Plan Plan: Assessment: #1. Acute hypoxic respiratory failure secondary to acute sepsis and mild CHF, unspecified #2. Acute urinary tract infection with sepsis, patient presented with febrile illness, hematuria, evidence of pyuria, and bacteriuria, weakness, chills #3. Atrial fibrillation with rapid ventricular response, patient is on chronic anticoagulation with Xarelto #4. Interstitial prominence, cardiomegaly consistent with mild CHF, unspecified #5. Cardiomyopathy, status post AICD placement #6. Obstructive sleep apnea, with baseline AHI of 23 #7. Hypertension #8. Obesity #9. Recent thoracic spine surgery for spinal stenosis on November 2017 #10. Chronic indwelling catheter for urinary retention post thoracic spine surgery #11. Osteoarthritis #12. Elevated d-dimer, nonspecific Plan: Continue Rocephin for antibiotic coverage. Will consider broadening the coverage if the patient develops septic shock. Await the results of the final blood and urine cultures. For now patient is hemodynamically stable. Lactic acid is 1.5. Continue BiPAP support, decrease FiO2 down to 45%. Continue 0.9 normal saline at 100 ML per hour. Continue Cardizem drip for rate control, continue Xarelto, and Pepcid. Further recommendations to follow. I performed a history & physical examination of the patient and discussed their management with my nurse practitioner, Mandi Rae. I reviewed the nurse practitioner's note and agree with the documented findings and plan of care. Lung sounds are positive for good air entry bilaterally, with only a few scattered rhonchi at the bases. The findings and the impression was discussed with the patient. I attest to the documentation by the nurse practitioner. Time with Patient: Greater than 30 <Narcisa Mueller - Last Filed: 12/06/17 17:19> Physical Exam Vitals: Vital Signs Temp Pulse Pulse Resp BP BP Pulse Ox 12/06/17 14:30 93 17 80/54 92 L 12/06/17 14:00 82 18 91/44 92 L 12/06/17 13:45 99 18 80/56 92 L 12/06/17 13:30 110 H 22 87/34 95 12/06/17 13:15 95 17 80/37 94 L 12/06/17 13:00 86 20 118/48 92 L 12/06/17 12:45 96 21 107/52 93 L 12/06/17 12:40 72 18 12/06/17 12:30 98 22 107/52 93 L 12/06/17 12:15 99.6 F 76 30 H 93 L 12/06/17 12:00 88 24 74/47 94 L 12/06/17 11:45 89 21 62/43 90 L 12/06/17 11:30 117 H 27 H 94/61 93 L 12/06/17 11:15 124 H 24 85/44 92 L 12/06/17 11:00 118 H 28 H 77/50 92 L 12/06/17 10:45 131 H 28 H 87/50 96 12/06/17 10:30 117 H 29 H 84/49 96 12/06/17 10:15 129 H 32 H 99/53 97 12/06/17 10:00 103.1 F H 145 H 30 H 109/70 97 12/06/17 09:50 141 H 31 H 104/64 95 12/06/17 09:40 152 H 35 H 157/79 99 12/06/17 09:30 134 H 37 H 157/79 100 12/06/17 09:20 151 H 41 H 140/90 94 L 12/06/17 09:10 149 H 152 H 31 H 94 L 12/06/17 09:08 103 F H 146 H 46 H 97 12/06/17 08:20 102.9 F H 152 H 18 108/66 91 L 12/06/17 04:00 98.9 F 118 H 18 98/60 91 L 12/06/17 00:00 98.3 F 115 H 18 94/57 91 L 12/05/17 23:08 115 H 18 12/05/17 20:52 107 H 18 110/67 98 12/05/17 19:48 102 H 18 104/68 96 12/05/17 18:49 99 F 108 H 18 106/64 96 Intake and Output 12/06/17 12/06/17 12/06/17 06:59 14:59 22:59 Intake Total 600 2062.5 200 Output Total 700 218 60 Balance -100 1844.5 140 Intake: IV 2062.5 200 0.9 NACL 2000 200 cardizem 12.5 zosyn 50 Intake, IV Titration 600 Amount Sodium Chloride 0.9% 1, 600 000 ml @ 100 mls/hr IV . Q10H [facility] Rx#:[id number] Output: Urine 700 218 60 Other: Voiding Method Indwelling Catheter Indwelling Catheter Indwelling Catheter Weight 141 kg Results - Laboratory Findings CBC and BMP: 12/06/17 06:29 12/06/17 06:29 ABG ABG pH 7.42 (7.35-7.45) 12/06/17 09:38 ABG pCO2 32 mmHg (35-45) L 12/06/17 09:38 ABG pO2 353 mmHg (83-108) H 12/06/17 09:38 ABG O2 Saturation 99.3 % (94-97) H 12/06/17 09:38 PT/INR, D-dimer PT 12.3 sec (9.0-12.0) H 12/05/17 14:33 INR 1.3 (<1.2) H 12/05/17 14:33 D-Dimer 2.74 mg/L FEU (<0.60) H 12/06/17 09:03 Abnormal lab findings: Abnormal Labs 12/05/17 12/05/17 12/05/17 14:33 14:33 14:33 WBC 11.5 H Neutrophils # 9.8 H Lymphocytes # 0.9 L PT INR D-Dimer ABG pCO2 ABG pO2 ABG O2 Saturation Sodium 135 L BUN 20 H Glucose 104 H AST Total Protein 6.2 L Albumin 2.8 L Urine Appearance Cloudy H Urine Protein 1+ H Urine Blood Large H Ur Leukocyte Esterase Large H Urine RBC >182 H Urine WBC 162 H Urine WBC Clumps Many H Urine Mucus Rare H 12/05/17 12/06/17 12/06/17 14:33 06:29 06:29 WBC 11.0 H Neutrophils # 9.7 H Lymphocytes # 0.7 L PT 12.3 H INR 1.3 H D-Dimer ABG pCO2 ABG pO2 ABG O2 Saturation Sodium BUN Glucose 106 H AST 10 L Total Protein 5.6 L Albumin 2.5 L Urine Appearance Urine Protein Urine Blood Ur Leukocyte Esterase Urine RBC Urine WBC Urine WBC Clumps Urine Mucus 12/06/17 12/06/17 09:03 09:38 WBC Neutrophils # Lymphocytes # PT INR D-Dimer 2.74 H ABG pCO2 32 L ABG pO2 353 H ABG O2 Saturation 99.3 H Sodium BUN Glucose AST Total Protein Albumin Urine Appearance Urine Protein Urine Blood Ur Leukocyte Esterase Urine RBC Urine WBC Urine WBC Clumps Urine Mucus Assessment and Plan Plan: The patient was seen in the intensive care unit. This is a joint evaluation. The patient is acting septic and she has sepsis secondary to urinary tract infection. The patient has urine culture and blood culture sent. The patient will be given IV Zosyn knowing that she has demonstrated E. coli on a urine culture that was obtained daily's back. Francois catheter is in place. Pressors may be needed. Monitor hemodynamics. Continue fluid resuscitation and the patient received 3 L of IV fluids for now. No altered mentation. Surgical wound site over the spinous clean. Order an echocardiogram to assess her LV function. We'll continue to follow. She'll be kept in ICU for now. Mental status improved. Pressors as also improved and patient can be taken off the BiPAP for now. Her heart rate is under better control with a Cardizem drip. Continue Xarelto.
[2017-12-06] MEDS: ACETAMINOPHEN IV (For NPO) 1,000 MG in EMPTY BAG 1 BAG IVPB PRN (10:30)
[2017-12-06] MEDS ORDERED: SODIUM CHLORIDE 0.9% 1,000 ML IV ONE (10:53)
[2017-12-06] MEDS: NOREPINEPHRIN 4 MG-0.9% NS PMX 4 MG/250 ML ML IV SCH (12:14)
--- NOTE | 2017-12-06 14:34 | CONS ---
CONSULTATION 67-year-old female patient of Dr. Johnson who was admitted with urosepsis, burning in the urine and fever and chills. Cardiology was consulted on account of an abnormal ECG, 12-lead ECG shows atrial fibrillation with RVR. She was febrile on admission. PAST MEDICAL HISTORY: Atrial fibrillation. History of spinal surgery about a month back. MEDICATIONS: Include: 1. Carvedilol. 2. Xarelto. 3. Keflex. 4. Famotidine. 5. Naprosyn. 6. Zinc. 7. Oxycodone. ALLERGIES: No known drug allergies. REVIEW OF SYSTEMS: She had fever, chills, no cough and no expectoration. No nausea, vomiting or diarrhea. She had no hematuria but she had dysuria. She also has musculoskeletal pain from recent back surgery and recent fall. PHYSICAL EXAMINATION: On examination heart rate initially 122 beats per minute, but now it is 90-110 beats per minute. Her blood pressure is better. She was hypertensive initially and was transferred to the ICU from [facility]. She is resting comfortably in bed. She gives a full history. Breath sounds are reduced bilaterally. She is obese. Heart sounds S1, S2 are irregular. Soft. ABDOMEN: Soft, nontender. EXTREMITIES: Mild edema. IMPRESSION: 1. Atrial fibrillation, RVR. 2. Status post pacemaker implantation in the past with intermittent pacing. 3. Urosepsis at this time with bacteremia. SUGGEST: From a cardiac standpoint rate control. Continue anticoagulation and treatment for urosepsis per primary team. Thank you for the consultation. MMODL / VAHIDN: [id number] /
[2017-12-06] MEDS ORDERED: cefTRIAXone IN SWFI 1,000 MG/10 ML SYRINGE IVP SCH (16:00)
--- NOTE | 2017-12-06 16:07 | P.GSCN ---
History of Present Illness Consult date: 12/06/17 Reason for Consult: Urosepsis/urinary retention/gross hematuria History of present illness: The patient is a 67-year-old female admitted through the emergency room yesterday for evaluation of sepsis secondary to a urinary tract infection. In the emergency room the patient was noted to have a temperature of 100.5 and a white blood count of 11,500. Lactic acid was normal. Urinalysis suggested a urinary tract infection. The patient was started on Rocephin. Since admission she's had a temperature as high as 103. She has been switched from Rocephin to Zosyn. Preliminary blood cultures are growing a gram-negative viviane. Renal ultrasound showed no evidence of hydronephrosis. Bilateral benign-appearing renal cysts were noted. The patient's problem began in late October following surgery on her thoracic spine for spinal stenosis at [facility]. The patient says she was unable to void and a catheter was inserted. She was transferred to a rehab unit where she remained until November 16. She says the catheter was removed once during her stay in the rehab unit and it was reinserted but it's unclear how much was present in her bladder at that time. She says that her urine has been cloudy since then. She is followed by [facility] and says that a urine culture was obtained on 12/01 and she was started on Keflex on 12/04. The patient has no previous history of urinary retention. She says she normally voids every 1-3 hours during the day and only occasionally at night. She denies any incontinence and says she feels like she usually voids completely. She has no previous history of urinary retention or gross hematuria. Review of Systems - Constitutional Reports chills, Reports fever - Cardiovascular Denies chest pain - Respiratory Denies cough, Denies wheezing - Gastrointestinal Denies constipation - Genitourinary Genitourinary: Reports as per HPI Past Medical History Past Medical History: Atrial Fibrillation History of Any Multi-Drug Resistant Organisms: None Reported Past Surgical History: Joint Replacement (Bilateral total knee arthroplasty), Pacemaker Additional Past Surgical History / Comment(s): bilateral knee replacement Type of Cardiac Device: AICD Device Placement Date:: unknown Past Psychological History: No Psychological Hx Reported Smoking Status: Never smoker Past Alcohol Use History: None Reported Past Drug Use History: None Reported Medications and Allergies Home Medications Medication Instructions Recorded Confirmed Type Carvedilol [Coreg] 12.5 mg PO BID 10/17/17 12/05/17 History Rivaroxaban [Xarelto] 20 mg PO AC-SUPPER 10/17/17 12/05/17 History Cephalexin [Keflex] 500 mg PO Q8H 12/05/17 12/05/17 History Docusate [Colace] 100 mg PO DAILY 12/05/17 12/05/17 History Famotidine [Pepcid] 20 mg PO DAILY 12/05/17 12/05/17 History Naproxen Sodium [Aleve] 220 mg PO BID PRN 12/05/17 12/05/17 History Zinc 50 mg PO DAILY 12/05/17 12/05/17 History oxyCODONE-APAP 5-325MG [Percocet 1 tab PO BID PRN 12/05/17 12/05/17 History 5-325 mg] Allergies Allergy/AdvReac Type Severity Reaction Status Date / Time No Known Allergies Allergy Verified 12/05/17 14:34 Surgical - Exam Vital Signs Temp Pulse Resp BP Pulse Ox 100.5 F H 113 H 20 115/58 98 12/05/17 14:08 12/05/17 14:08 12/05/17 14:08 12/05/17 14:08 12/05/17 14:08 - General well developed, well nourished, no distress, obese - Respiratory normal respiratory effort - Abdomen Abdomen: soft, non tender, no organomegaly - Genitourinary other (A urethral catheter is in place and is draining yellow urine which is free of any obvious bleeding) Results - Labs 12/06/17 06:29 12/06/17 06:29 Abnormal Lab Results - Last 24 Hours (Table) 12/06/17 12/06/17 12/06/17 Range/Units 06:29 06:29 09:03 WBC 11.0 H (3.8-10.6) k/uL Neutrophils # 9.7 H (1.3-7.7) k/uL Lymphocytes # 0.7 L (1.0-4.8) k/uL D-Dimer 2.74 H (<0.60) mg/L FEU ABG pCO2 (35-45) mmHg ABG pO2 (83-108) mmHg ABG O2 Saturation (94-97) % Glucose 106 H (74-99) mg/dL AST 10 L (14-36) U/L Total Protein 5.6 L (6.3-8.2) g/dL Albumin 2.5 L (3.5-5.0) g/dL 12/06/17 Range/Units 09:38 WBC (3.8-10.6) k/uL Neutrophils # (1.3-7.7) k/uL Lymphocytes # (1.0-4.8) k/uL D-Dimer (<0.60) mg/L FEU ABG pCO2 32 L (35-45) mmHg ABG pO2 353 H (83-108) mmHg ABG O2 Saturation 99.3 H (94-97) % Glucose (74-99) mg/dL AST (14-36) U/L Total Protein (6.3-8.2) g/dL Albumin (3.5-5.0) g/dL Microbiology - Last 24 Hours (Table) 12/05/17 14:33 Blood Culture Gram Stain - Preliminary Blood 12/05/17 14:33 Blood Culture - Final Blood 12/05/17 14:33 Urine Culture - Preliminary Urine,Catheterized Diabetes panel 12/06/17 Range/Units 06:29 Sodium 138 (137-145) mmol/L Potassium 4.9 (3.5-5.1) mmol/L Chloride 104 (98-107) mmol/L Carbon Dioxide 23 (22-30) mmol/L BUN 15 (7-17) mg/dL Creatinine 0.87 (0.52-1.04) mg/dL Glucose 106 H (74-99) mg/dL Calcium 8.8 (8.4-10.2) mg/dL AST 10 L (14-36) U/L ALT 28 (9-52) U/L Alkaline Phosphatase 100 (38-126) U/L Total Protein 5.6 L (6.3-8.2) g/dL Albumin 2.5 L (3.5-5.0) g/dL Calcium panel 12/06/17 Range/Units 06:29 Calcium 8.8 (8.4-10.2) mg/dL Albumin 2.5 L (3.5-5.0) g/dL Pituitary panel 12/06/17 Range/Units 06:29 Sodium 138 (137-145) mmol/L Potassium 4.9 (3.5-5.1) mmol/L Chloride 104 (98-107) mmol/L Carbon Dioxide 23 (22-30) mmol/L BUN 15 (7-17) mg/dL Creatinine 0.87 (0.52-1.04) mg/dL Glucose 106 H (74-99) mg/dL Calcium 8.8 (8.4-10.2) mg/dL Adrenal panel 12/06/17 Range/Units 06:29 Sodium 138 (137-145) mmol/L Potassium 4.9 (3.5-5.1) mmol/L Chloride 104 (98-107) mmol/L Carbon Dioxide 23 (22-30) mmol/L BUN 15 (7-17) mg/dL Creatinine 0.87 (0.52-1.04) mg/dL Glucose 106 H (74-99) mg/dL Calcium 8.8 (8.4-10.2) mg/dL Total Bilirubin 0.7 (0.2-1.3) mg/dL AST 10 L (14-36) U/L ALT 28 (9-52) U/L Alkaline Phosphatase 100 (38-126) U/L Total Protein 5.6 L (6.3-8.2) g/dL Albumin 2.5 L (3.5-5.0) g/dL Assessment and Plan (1) Postoperative urinary retention Narrative/Plan: The patient appears to have developed urinary retention following surgery for spinal stenosis. Her catheter has remained in place for approximately 1 month and it is likely she became colonized which resulted in a urinary tract infection and subsequent sepsis. The gross hematuria is most likely in part related to her use of Zaralto. The patient does not appear to have any significant anatomic abnormality of her kidneys. Once her infection is under better control the patient could have a voiding trial and hopefully she can be discharged without a catheter. Current Visit: Yes Status: Acute Code(s): N99.89 - OTH POSTPROCEDURAL COMPLICATIONS AND DISORDERS OF SYS; R33.8 - OTHER RETENTION OF URINE SNOMED Code(s): 182938573
--- NOTE | 2017-12-06 17:35 | ECHOF ---
Referral Reason:acute dyspnea, Bi-Pap dependent MEASUREMENTS -------- HEIGHT: 162.6 cm WEIGHT: 140.6 kg BP: 109/70 RVIDd: 3.9 cm (< 3.3) IVSd: 1.3 cm (0.6 - 1.1) LVIDd: 4.2 cm (3.9 - 5.3) LVPWd: 1.3 cm (0.6 - 1.1) IVSs: 1.8 cm LVIDs: 3.8 cm LVPWs: 1.3 cm LA Diam: 3.1 cm (2.7 - 3.8) LAESV Index (A-L): 31.90 ml/m Ao Diam: 3.6 cm (2.0 - 3.7) AV Cusp: 2.1 cm (1.5 - 2.6) MV EXCURSION: 25.445 mm (> 18.000) MV EF SLOPE: 176 mm/s (70 - 150) EPSS: 0.7 cm RAP: 5.00 mmHg RVSP: 24.64 mmHg FINDINGS -------- Atrial fibrillation. This was a technically adequate study. The left ventricular size is normal. There is mild concentric left ventricular hypertrophy. Overa ll left ventricular systolic function is mildly impaired with, an EF between 45 - 50 %. There is se ptal flattening in diastole which is consistent with right ventricular volume overload. The right ventricle is moderately enlarged. LA is midly dilated 29-33ml/m2. The right atrium was not well visualized. There is mild aortic valve sclerosis. Mild mitral annular calcification present. Mild tricuspid regurgitation present. Right ventricular systolic pressure is normal at < 35 mmHg. Trace/mild (physiologic) pulmonic regurgitation. The aortic root size is normal. IVC Not well visulized. There is a trivial pericardial effusion present. CONCLUSIONS -------- 1. Atrial fibrillation. 2. This was a technically adequate study. 3. The left ventricular size is normal. 4. There is mild concentric left ventricular hypertrophy. 5. Overall left ventricular systolic function is mildly impaired with, an EF between 45 - 50 %. 6. The right ventricle is moderately enlarged. 7. LA is midly dilated 29-33ml/m2. 8. The right atrium was not well visualized. 9. There is mild aortic valve sclerosis. 10. Mild mitral annular calcification present. 11. Mild tricuspid regurgitation present. 12. Right ventricular systolic pressure is normal at < 35 mmHg. 13. Trace/mild (physiologic) pulmonic regurgitation. 14. The aortic root size is normal. 15. IVC Not well visulized. 16. There is a trivial pericardial effusion present. CORE MAN: Teodora Luna RDCS
[2017-12-06] MEDS: RIVAROXABAN 20 MG TAB PO SCH (19:10)
--- NOTE | 2017-12-06 23:34 | CONS ---
CONSULTATION DATE OF SERVICE: 12/06/2017. REASON FOR CONSULTATION: Sepsis. HISTORY OF PRESENT ILLNESS: The patient is a 67-year-old female who recently did have thoracic spine surgery done at the outside facility. Apparently the patient had developed urinary retention post surgery for which a Francois catheter has been placed. The patient has been getting rehab at home with home care and apparently noticed to have more discoloration of her urine to be mostly greenish. UA was done on the , which did grow E. coli and the patient has been on oral Keflex in the outpatient setting. However, the patient seems to be getting worse with no energy, started having a fever. No chest pain. No shortness of breath or cough. He did have some lower abdominal pain for the last few days, more of a dull aching pain, /10 to /10, had no radiation with these symptoms, and the patient came to the [facility] ER, where the patient has been evaluated by the ER physician. On arrival to the ER, the patient did have a low-grade fever of 100.5-100. Full workup did show white count to be elevated at 11.5. Her urine was significantly positive with large leukocyte esterase with more than 1-2 WBCs. Patient's BUN and creatinine were normal as well as electrolytes. Influenza serology was negative. Blood and urine cultures have been obtained and the patient was started on Rocephin. However, while on the select unit, the patient became hypertensive, was complaining of shortness of breath for which an A team was called and the patient was started on BiPAP. Did receive some fluid boluses for her hypotension. Infectious Disease was consulted for further recommendation of antibiotic therapy and antibiotic therapy was broadened to Zosyn pending repeat cultures to finalize, as the blood cultures positive for a gram-negative bacilli. REVIEW OF SYSTEMS: CONSTITUTIONAL: Positive for weakness along with a fever. EYES: No complaint. ENT: No complaint. RESPIRATORY: As per HPI. CARDIOVASCULAR: No complaint. GENITOURINARY: As per HPI. GASTROINTESTINAL SYSTEM: No complaint. MUSCULOSKELETAL: No complaint. INTEGUMENTARY: No complaint. PSYCHOLOGICAL: No complaint. ENDOCRINE: No complaint. NEUROLOGICAL: No complaint. PAST MEDICAL HISTORY: Significant for atrial fibrillation, urinary retention, osteoarthritis, hypertension. PAST SURGICAL HISTORY: AICD placement, bilateral knee replacement, recent thoracic spine surgery. SOCIAL HISTORY: No history of smoking, drinking or drug use. FAMILY HISTORY: No pertinent findings noticed. ALLERGIES: No known drug allergies. MEDICATIONS: Include the patient is currently on: 1. Tylenol. 2. Diltiazem. 3. Colace. 4. Pepcid. 5. . 6. Narcan. 7. Zofran. 8. Percocet. 9. Tazobactam. 10.Xarelto. 11. . EXAMINATION: Blood pressure is 118/58 with a pulse of 90, temperature of 97.8, T-max is 103.3 Fahrenheit. She is 97% on 2L nasal cannula. General description is an elderly female lying in bed in no distress. No tachypnea or accessory muscle of respiration use. HEENT shows no pallor or scleral icterus. Oral mucous membranes are dry. NECK: Trachea central. No thyromegaly. LUNGS: Unlabored breathing. Clear to auscultation anteriorly. No wheeze or crackle. HEART: S1, S2. Regular rate and rhythm. No murmur. ABDOMEN: Soft, no tenderness. No guarding. No rigidity. No organomegaly. EXTREMITIES: Some trace edema of feet. GENITOURINARY: The patient did have Francois catheter with some dark urine. No hematuria. NEUROLOGICAL: The patient is awake, alert, oriented x3. Mood and affect normal. MUSCULOSKELETAL SYSTEM: Examination of the thoracic spine at the site of surgery did not show any evidence of any swelling or redness. Wound is currently healed. LABS: Hemoglobin is 11.4, white count of 11 with a BUN of 15, creatinine 0.7. Electrolytes has been normal. Liver enzymes are normal. Urine was significantly positive. Influenza serology was negative. Ultrasound of the abdomen was negative for any hydronephrosis tissue on the renal cyst. Chest x-ray was interstitial prominence, mild cardiomegaly, no quynh pulmonary edema. DIAGNOSTIC IMPRESSION AND PLAN: Patient with sepsis in a patient did have a fever of 103 degrees Fahrenheit and the patient did have a heart rate of 110 and she was tachypneic, breathing at 22 beats per minute with a white count of 11.5, meeting criteria for systemic inflammatory response syndrome/sepsis, source is urinary with catheter-associated urinary tract infection failing outpatient oral Keflex therapy. Ultrasound negative for any structural abnormality or hydronephrosis with some renal cyst and no other clinical focus of infection. Abdomen was soft, nontender on examination. No evidence of any pneumonia or cellulitis and the recent thoracic spine surgical site looks clean with no evidence of any cellulitis. PLAN: 1. Blood cultures will be repeated to document clearance of her bacteremia. 2. Zosyn 3.375 g will be continued while we are waiting for the final ID of the gram- negative in the blood and waiting for the urine culture to finalize. 3. Aggressive IV fluid. 4. We will follow up on the clinical condition and culture to further adjust medication if needed. 5. Thank you for this consultation. Will follow this patient along with you. MMODL / IJN: [id number] /
[2017-12-07] MEDS: ACETAMINOPHEN TAB 325 MG TAB PO PRN (00:56)
[2017-12-07] MEDS: PIPERACILLIN-TAZOBACTAM 3.375 GM in DEXTROSE/WATER 1 50ML.BAG IVPB SCH ×4 (01:00→22:31)
[2017-12-07] MEDS: SODIUM CHLORIDE 0.9% 1,000 ML IV SCH ×4 (02:35→17:27)
[2017-12-07 05:45] LABS: Basophils % (A) 0 %; Eosinophils # (A) 0.1 k/uL (0-0.7); Eosinophils % (A) 0 %; HCT 34.1 % (34.0-46.0); HGB 10.4 gm/dL (11.4-16.0); Hypochromasia Slight; Lymphocytes # (A) 1.1 k/uL (1.0-4.8); Lymphocytes % (A) 7 %; MCHC 30.5 g/dL (31.0-37.0); MCV 91.8 fL (80.0-100.0); Mean Platelet Volume 7.6; Monocytes # (A) 0.6 k/uL (0-1.0); Monocytes % (A) 4 %; Neutrophils # (A) 13.2 k/uL (1.3-7.7); Neutrophils % (A) 87 %; Platelet Count 279 k/uL (150-450); RBC 3.71 m/uL (3.80-5.40); RDW 13.9 % (11.5-15.5); WBC 15.2 k/uL (3.8-10.6)
[2017-12-07 05:58] LABS: Calcium 8.4 mg/dL (8.4-10.2); Magnesium 1.8 mg/dL (1.6-2.3); Potassium 4.8 mmol/L (3.5-5.1)
--- NOTE | 2017-12-07 08:02 | XR ---
EXAMINATION TYPE: XR chest 1V portable DATE OF EXAM: 12/07/2017 COMPARISON: 12/16/2017 INDICATION: Shortness of breath TECHNIQUE: Single frontal view of the chest is obtained. FINDINGS: The heart size is enlarged. The pulmonary vasculature is normal. No suspicious infiltrates are present. Pacemaker overlies left chest. Fixation pedicle screws and viviane s are within the upper thoracic spine. IMPRESSION: 1. No acute pulmonary process. 2. Cardiomegaly
[2017-12-07] MEDS: ZINC SULFATE 220 MG CAP PO SCH (08:25)
[2017-12-07] MEDS: DOCUSATE 100 MG CAP PO SCH (08:25)
[2017-12-07] MEDS: FAMOTIDINE 20 MG TAB PO SCH (08:25)
[2017-12-07] MEDS: NOREPINEPHRIN 4 MG-0.9% NS PMX 4 MG/250 ML ML IV SCH (08:30)
--- NOTE | 2017-12-07 09:44 | P.PN ---
Subjective Progress Note Date: 12/07/17 Principal diagnosis: Acute hypoxic respiratory failure secondary to acute sepsis related to acute urinary tract infection Viola is a 67-year-old white female patient of Dr. Combs, who presented to the emergency department on 12/05/2017 at 1352 with complaints of lower back pain, weakness in bilateral lower extremities, gait dysfunction, a fall at home occurring 2 days ago. Patient complained of decreased urinary output from her indwelling catheter. Patient had a recent thoracic spine surgery on 11/16/2017 for spinal stenosis and has had the Francois catheter since the surgery. She was being followed by a visiting nurse at home. She also noted hematuria, and was having fever and chills and overall generalized fatigue. She denies any shortness of breath, denies any chest pain, denies any chest congestion and sputum production. Denies any abdominal pain. Was having suprapubic tenderness on admission, which is not present now. EKG showed atrial fibrillation with rapid ventricular rate, patient was febrile and tachycardic on admission, temp was 100.5F, and a heart rate was ranging from 113-122 BPM. Lumbar x-ray shows scoliosis with multilevel degenerative severe disc disease, mild superior endplate compression deformity of L3 of indeterminate age. Thoracic spine x-ray was taken and showed C3-C4 posterior thoracic fusion hardware. Urinalysis showed significant pyuria and bacteriuria. Patient was started on Rocephin, IV 0.9 was infusing at 100 ML per hour. This morning of rapid response team was called in regards to patient's experiencing severe respiratory distress, fevers, chills. Patient was placed on BiPAP support, and was transferred to the intensive care. Chest x-ray showed mild cardiomegaly and interstitial prominence, AICD was noted. Patient's other medical history includes obstructive sleep apnea, cardiomyopathy, status post AICD placement, osteoarthritis, hypertension, obesity, chronic atrial fibrillation, arthritis. Lactic acid on admission was 1.0, on admission to ICU was 1.5. Patient is maintaining normal blood pressures, no hypotension at this time. Blood gas showed pH is 7.42, pCO2 32, pO2 of 353, this was done and FiO2 of 100%. Sepsis protocol has been initiated, blood cultures urine cultures have been ordered and sent. And are pending at this time. Ultrasound of the kidney showed no evident hydronephrosis. At the time of evaluation patient is seen on BiPAP support, fairly comfortable, is awake alert, and able to respond appropriately. FiO2 was decreased down to 45%. Continue IV fluids at a rate of 100 ML per hour. On 12/07/2017 patient seen in follow-up in intensive care unit. She did not require BiPAP last night. Norepinephrine drip was discontinued this morning at 8:00. No febrile episodes since yesterday on 12/06/2017 at 10 AM with the T- max of 103.1F. One low-grade fever with a temp of 99.9F at 4:00 this morning. Patient's urine still positive for some sediment, lightly cloudy, but improving. Urine output is ranging from 30-80 ML per hour. Lung sounds are positive for a few faint wheezes at the bases, no rales or rhonchi noted. Patient remains on 2 L per nasal cannula with O2 sat 96%. Hemodynamically stable. Remains slightly tachycardic, remains in A. fib, with a heart rate ranging between 98-108 BPM. We will try to set restart Coreg today at 6.25 mg twice a day. Cardizem drip has been discontinued last night. 0.9 is infusing at a rate of 100 ML per hour, yesterday patient received 2 L of 0.9 normal saline fluid bolus. She is developing worsening bilateral lower extremity edema , she is tolerating oral intake, we will decrease the IV rate of maintenance fluids to 20 ML per hour. Today's lab work showed a CBC of 15.2, hemoglobin is 10.4, sodium is 137, potassium is 4.8, BUN is 19, creatinine 0.90. Urine culture from 12/02/2017 was positive for E. coli, blood culture from 12/05/2017 was positive for gram-negative bacilli. Urine culture from 12/05/2017 showed no growth. Objective - Vital Signs Vital signs: Vital Signs Temp 98 F 12/07/17 08:00 Pulse 98 12/07/17 08:00 Resp 18 12/07/17 08:00 BP 121/72 12/07/17 08:00 Pulse Ox 96 12/07/17 08:00 Intake & Output 12/06/17 12/07/17 12/07/17 18:59 06:59 18:59 Intake Total 2462.5 1485.500 264.5 Output Total 478 780 115 Balance 1984.5 705.500 149.5 Weight 151.1 kg Intake: IV 2462.5 1250.0 250 0.9 NACL 2400 1200 200 cardizem 12.5 zosyn 50 50.0 50 Intake, IV Titration 235.500 14.5 Amount Norepinephrin 4 mg-0.9% 235.500 14.5 Ns Pmx 4 mg In 250 ml @ Titrate IV .Q0M [facility] Rx#: [id number] Output: Urine 478 780 115 Other: Voiding Method Indwelling Catheter Indwelling Catheter - Exam GENERAL EXAM: Alert, 67-year-old white female in no apparent distress. HEAD: Normocephalic/atraumatic. EYES: Normal reaction of pupils, equal size. Conjunctiva pink, sclera white. NOSE: Clear with pink turbinates. THROAT: No erythema or exudates. NECK: No masses, no JVD, no thyroid enlargement, no adenopathy. CHEST: No chest wall deformity. Symmetrical expansion. LUNGS: Equal air entry with no crackles, wheeze, a few scattered rhonchi, faint wheezes at bilateral bases noted CVS: Regular rate and rhythm, normal S1 and S2, no gallops, no murmurs, no rubs ABDOMEN: Soft, nontender. No hepatosplenomegaly, normal bowel sounds, no guarding or rigidity. EXTREMITIES: No clubbing, 2+ nonpitting edema in bilateral lower extremities noted, no cyanosis, 2+ pulses and upper and lower extremities. MUSCULOSKELETAL: Muscle strength and tone normal. SPINE: No scoliosis or deformity SKIN: No rashes CENTRAL NERVOUS SYSTEM: Alert and oriented -3. No focal deficits, tone is normal in all 4 extremities. PSYCHIATRIC: Alert and oriented -3. Appropriate affect. Intact judgment and insight. - Labs CBC & Chem 7: 12/07/17 04:48 12/07/17 04:48 Labs: Abnormal Lab Results - Last 24 Hours (Table) 12/06/17 12/07/17 12/07/17 Range/Units 09:38 04:48 04:48 WBC 15.2 H (3.8-10.6) k/uL RBC 3.71 L (3.80-5.40) m/uL Hgb 10.4 L (11.4-16.0) gm/dL MCHC 30.5 L (31.0-37.0) g/dL Neutrophils # 13.2 H (1.3-7.7) k/uL ABG pCO2 32 L (35-45) mmHg ABG pO2 353 H (83-108) mmHg ABG O2 Saturation 99.3 H (94-97) % BUN 19 H (7-17) mg/dL Glucose 121 H (74-99) mg/dL Microbiology - Last 24 Hours (Table) 12/05/17 14:33 Blood Culture Gram Stain - Preliminary Blood Blood Culture - Preliminary Gram Neg Bacilli 12/05/17 14:33 Urine Culture - Final Urine,Catheterized 12/05/17 14:33 Blood Culture - Final Blood Assessment and Plan Plan: Assessment: #1. Acute hypoxic respiratory failure secondary to acute sepsis, resolved. Patient required a short period of BiPAP support, currently on nasal cannula, and tolerating it well. #2. Acute urinary tract infection with sepsis, patient presented with febrile illness, hematuria, evidence of pyuria, and bacteriuria, weakness, chills. Urine culture from 12/02/2017 was positive for E. coli, blood culture from 12/05 was positive for gram-negative bacilli, final cultures pending #3. Atrial fibrillation with rapid ventricular response, patient is on chronic anticoagulation with Xarelto #4. Interstitial prominence, cardiomegaly consistent with mild systolic CHF #5. Cardiomyopathy, status post AICD placement, EF is 45-50% #6. Obstructive sleep apnea, with baseline AHI of 23 #7. Hypertension #8. Obesity #9. Recent thoracic spine surgery for spinal stenosis on November 2017 #10. Chronic indwelling catheter for urinary retention post thoracic spine surgery #11. Osteoarthritis #12. Elevated d-dimer, nonspecific Plan: Continue current antibiotic coverage with Zosyn, decrease IV fluids down to KVO. Patient has been weaned off the norepinephrine drip this morning at 8:00. Remains in A. fib with a rate of 100-118 BPM. We will discontinue the Cardizem drip which has been on hold since yesterday, patient will be started on a lower dose of Coreg, she normally takes 12.5 mg twice a day, we will restart her Coreg at a dose of 6.25 mg twice a day. Continue monitoring hemodynamics, fever pattern, microbiology. Blood culture was positive for gram- negative bacilli, final culture is pending. If patient remains hemodynamically stable, she may be transferred out of ICU back to selective care. Continue anticoagulation with Xarelto, continue Pepcid. Urology consultation was noted. I performed a history & physical examination of the patient and discussed their management with my nurse practitioner, Mandi Rae. I reviewed the nurse practitioner's note and agree with the documented findings and plan of care. Lung sounds are positive for good air entry bilaterally, with only a few faint wheezes. The findings and the impression was discussed with the patient. I attest to the documentation by the nurse practitioner. Time with Patient: Greater than 30
--- NOTE | 2017-12-07 09:51 | P.PN ---
Subjective Progress Note Date: 12/07/17 Principal diagnosis: urosepsis This a pleasant 67-year-old female with a history of spinal surgery about month ago, history of atrial fibrillation. Presented to the hospital and admitted with urosepsis. We were consulted because of atrial fibrillation with rapid ventricular response. She was febrile on admission. Upon examination today, patient is feeling fairly well. She does complain of some lower back discomfort. She denies complains of nausea, vomiting, chest discomfort, palpitations or dizziness. Her urine is clear today with good urine output. She remains only Levophed and Cardizem. Heart rate remains in the 110s-120s. She is currently afebrile. Objective - Vital Signs Vital signs: Vital Signs Temp 98 F 12/07/17 08:00 Pulse 98 12/07/17 08:00 Resp 18 12/07/17 08:00 BP 121/72 12/07/17 08:00 Pulse Ox 96 12/07/17 08:00 Intake & Output 12/06/17 12/07/17 12/07/17 18:59 06:59 18:59 Intake Total 2462.5 1485.500 264.5 Output Total 478 780 115 Balance 1984.5 705.500 149.5 Weight 151.1 kg Intake: IV 2462.5 1250.0 250 0.9 NACL 2400 1200 200 cardizem 12.5 zosyn 50 50.0 50 Intake, IV Titration 235.500 14.5 Amount Norepinephrin 4 mg-0.9% 235.500 14.5 Ns Pmx 4 mg In 250 ml @ Titrate IV .Q0M [facility] Rx#: [id number] Output: Urine 478 780 115 Other: Voiding Method Indwelling Catheter Indwelling Catheter - Exam PHYSICAL EXAMINATION: HEENT: Head is atraumatic, normocephalic. Pupils equal, round. Neck is supple. There is no elevated jugular venous pressure. HEART EXAMINATION: Heart sounds irregularly irregular, S1 and S2 normal. No murmur or gallop heard. CHEST EXAMINATION: Lungs are clear to auscultation and precussion. No chest wall tenderness is noted on palpation or with deep breathing. ABDOMEN: Soft, obese, nontender. Bowel sounds are heard. No organomegaly noted. Francois catheter in place with clear cristy urine. EXTREMITIES: 1+ peripheral pulses with evidence of mild peripheral edema and no calf tenderness noted. NEUROLOGIC patient is awake, alert and oriented x3. . - Labs CBC & Chem 7: 12/07/17 04:48 12/07/17 04:48 Labs: Abnormal Lab Results - Last 24 Hours (Table) 12/06/17 12/07/17 12/07/17 Range/Units 09:38 04:48 04:48 WBC 15.2 H (3.8-10.6) k/uL RBC 3.71 L (3.80-5.40) m/uL Hgb 10.4 L (11.4-16.0) gm/dL MCHC 30.5 L (31.0-37.0) g/dL Neutrophils # 13.2 H (1.3-7.7) k/uL ABG pCO2 32 L (35-45) mmHg ABG pO2 353 H (83-108) mmHg ABG O2 Saturation 99.3 H (94-97) % BUN 19 H (7-17) mg/dL Glucose 121 H (74-99) mg/dL Microbiology - Last 24 Hours (Table) 12/05/17 14:33 Blood Culture Gram Stain - Preliminary Blood Blood Culture - Preliminary Gram Neg Bacilli 12/05/17 14:33 Urine Culture - Final Urine,Catheterized 12/05/17 14:33 Blood Culture - Final Blood Assessment and Plan Assessment: #1 atrial fibrillation with rapid ventricular response, with history of chronic atrial fibrillation #2 status post pacemaker implantation in the past #3 urosepsis with bacteremia Plan: From cardiology's perspective continue anticoagulation. Continue treatment for urosepsis. Attempt to keep heart rate less than 130s. We will continue to follow patient right further recommendations accordingly. COMMUNITY ADMINISTRATOR note has been reviewed, I agree with a documented findings and plan of care. Patient was seen and examined.
[2017-12-07] MEDS: CARVEDILOL 6.25 MG TAB PO SCH ×2 (09:53→17:32)
[2017-12-07] MEDS ORDERED: ACETAMINOPHEN IV (For NPO) 1,000 MG in EMPTY BAG 1 BAG IVPB STA (13:14)
[2017-12-07] MEDS: ACETAMINOPHEN IV (For NPO) 1,000 MG in EMPTY BAG 1 BAG IVPB PRN (13:35)
--- NOTE | 2017-12-07 15:20 | CDI ---
Last Revision, September 2017 Documentation Clarification Form Date: 12/07/2017 3:07:00 PM From: Kellee CarusoROSA MARIA, CCDS Admit Date: 12/05/2017 3:39:00 PM Patient Name: Viola Bryson Visit Number: [id number] Discharge Date: ATTENTION: The Clinical Documentation Specialists (CDI) and [facility] Coding Staff appreciate your assistance in clarifying documentation. Please respond to the clarification below the line at the bottom and electronically sign. The CDI & [facility] Coding staff will review the response and follow-up if needed. Please note: Queries are made part of the Legal Health Record. If you have any questions, please contact the author of this message via ITS. Dr. Narcisa Mueller: Per the 12/06 & 12/07 pulmonary progress notes: Interstitial prominence, cardiomegaly consistent with mild CHF, unspecified. History/Risk Factors: Atrial fibrillation with Pacemaker, recent cervical spinal surgery. Clinical Indicators: Patient presented with a CAUTI status post spinal surgery a month ago. VS: P 113 - 122 - 149 (12/06) 12/06: Echocardiogram Results: EF 45-50% left ventricular systolic function mildly impaired. Chest X Ray: 12/06: Mild cardiomegaly & interstitial prominence, correlate to exclude mild CHF, no quynh pulmonary edema. 12/07: Cardiomegaly. Treatment: IV Zosyn, IV Cardizem ( A Fib), IV Tylenol, IV fluid bolus dc'd, IV Rocephin, remains in ICU. In your professional opinion, can you please clarify the acuity and type of CHF if known? Systolic Heart Failure: o Acute o Chronic o Acute on Chronic Diastolic Heart Failure: o Acute o Chronic o Acute on Chronic Systolic & Diastolic Heart Failure: o Acute o Chronic o Acute on Chronic Heart Failure Unable to Determine Other, please specify Please continue to document in your progress notes and discharge summary in order to capture severity of illness and risk of mortality. Include clinical findings that support your diagnosis. MTDD
[2017-12-07] MEDS: RIVAROXABAN 20 MG TAB PO SCH (17:27)
[2017-12-07] MEDS: ACETAMINOPHEN IV (For NPO) 1,000 MG in EMPTY BAG 1 BAG IVPB SCH (20:27)
[2017-12-07] MEDS: LORazepam 2 MG/ML INJ IV PRN (20:50)
--- NOTE | 2017-12-07 21:30 | P.PN ---
Subjective Progress Note Date: 12/06/17 Principal diagnosis: Urinary tract infection Patient is a 67-year-old female with a known history of atrial fibrillation on antibiotics in for recently had spinal surgery cervical about a month ago [facility] with complaints of right lower back pain for the past 2 days. Patient says that her legs gave away about 2 days back and fell on her right side. Denies any hitting head. Patient is not able to twist back but says it does hurt more when she flexes her back to a sitting position. Patient denies bowel dysfunction and states she had a bowel movement today. Patient states she has been urinating less and her De La Rosa output is less than normal but unsure of the measurement. Patient took a Percocet about 2 hours ago which has helped her back pain since that time. Patient did have surgery on her thoracic spine on November 16 for spinal stenosis according to the patient. She has been unable to follow up with the surgeon as directed because she cannot walk down the stairs to leave the house. Patient states she is also experiencing burning urine and was diagnosed by [facility] with urinary tract infection. Patient is currently taking Keflex since yesterday.. She has had a de la rosa catheter in place since her surgery on the , and has been unable to follow up with the urologist as well. Patient had urine retention followed by surgery and since then patient is on De La Rosa catheter. Her next appointment for the urologist is on December 14 in [place]. She states she noticed her urine was bloody and she has had fevers and chills and has felt fatigued. Patient denies any shortness of breath, coughing, chest pain, or abdominal pain. Patient does admit to some suprapubic tenderness but denies pain. Patient was found have significant pyuria and the urinalysis. urine culture was sent. EKG showed atrial fibrillation with rapid regular rate Patient was febrile and tachycardic on admission. Patient had lumbar and thoracic spine x-ray was done in the ER. 12/06/2017 Patient became more shortness and hypoxic this morning. Patient was placed on BiPAP machine. Chest x-ray showed mild pulmonary aspirin condition otherwise patient was hypotensive and was started on Levophed. Pulmonary and cardiology has seen the patient. He was also on Cardizem drip for heart rate controlled. No fever today. Antibiotic 7J to Zosyn at this time. ID has been consulted as well. Patient denied any chest pain. No nausea vomiting or abdominal pain. Ultrasound of abdomen showed no hydronephrosis. Patient is currently drowsy but awake alert oriented. Complete review of systems could not be obtained. Current medications reviewed. Objective - Vital Signs Vital signs: Vital Signs Temp 103.1 F H 12/06/17 10:00 Pulse 118 H 12/06/17 11:00 Resp 28 H 12/06/17 11:00 BP 77/50 12/06/17 11:00 Pulse Ox 92 L 12/06/17 11:00 Intake & Output 12/05/17 12/06/17 12/06/17 18:59 06:59 18:59 Intake Total 700 260 Output Total 900 53 Balance -200 207 Weight 136 kg 141 kg Intake: IV 260 0.9 NACL 200 cardizem 10 zosyn 50 Intake, IV Titration 700 Amount Sodium Chloride 0.9% 1, 700 000 ml @ 100 mls/hr IV . Q10H [facility] Rx#:[id number] Output: Urine 900 53 Other: Voiding Method Indwelling Catheter Indwelling Catheter Indwelling Catheter - Exam Patient is lying in the bed comfortably, no acute distress, awake alert and oriented. Morbid obesity. HEENT: Normocephalic. Neck is supple. Pupils reactive. Nostrils clear. Oral cavity is moist. Ears reveal no drainage. Cervical spine surgical scar is intact. Neck reveals no JVD, carotid bruits, or thyromegaly. CHEST EXAMINATION: Trachea is central. Symmetrical expansion. Bilateral diminished air entry CARDIAC: Normal S1, S2 with no gallops. No murmurs irregularly irregular pulse ABDOMEN: Soft. Bowel sounds normal. No organomegaly. No abdominal bruits. Extremities: 1+ edema. No clubbing or cyanosis Neurologically awake, alert, oriented x3 with well-coordinated movements. No focal deficits noted Skin: No rash or skin lesions. Psychiatric: Cooperative. Nonsuicidal Musculoskeletal: No joint swelling or deformity. Normal range of motion. - Labs CBC & Chem 7: 12/07/17 04:48 12/07/17 04:48 Labs: Abnormal Lab Results - Last 24 Hours (Table) 12/05/17 12/05/17 12/05/17 Range/Units 14:33 14:33 14:33 WBC 11.5 H (3.8-10.6) k/uL Neutrophils # 9.8 H (1.3-7.7) k/uL Lymphocytes # 0.9 L (1.0-4.8) k/uL PT (9.0-12.0) sec INR (<1.2) D-Dimer (<0.60) mg/L FEU ABG pCO2 (35-45) mmHg ABG pO2 (83-108) mmHg ABG O2 Saturation (94-97) % Sodium 135 L (137-145) mmol/L BUN 20 H (7-17) mg/dL Glucose 104 H (74-99) mg/dL AST (14-36) U/L Total Protein 6.2 L (6.3-8.2) g/dL Albumin 2.8 L (3.5-5.0) g/dL Urine Appearance Cloudy H (Clear) Urine Protein 1+ H (Negative) Urine Blood Large H (Negative) Ur Leukocyte Esterase Large H (Negative) Urine RBC >182 H (0-5) /hpf Urine WBC 162 H (0-5) /hpf Urine WBC Clumps Many H (None) /hpf Urine Mucus Rare H (None) /hpf 12/05/17 12/06/17 12/06/17 Range/Units 14:33 06:29 06:29 WBC 11.0 H (3.8-10.6) k/uL Neutrophils # 9.7 H (1.3-7.7) k/uL Lymphocytes # 0.7 L (1.0-4.8) k/uL PT 12.3 H (9.0-12.0) sec INR 1.3 H (<1.2) D-Dimer (<0.60) mg/L FEU ABG pCO2 (35-45) mmHg ABG pO2 (83-108) mmHg ABG O2 Saturation (94-97) % Sodium (137-145) mmol/L BUN (7-17) mg/dL Glucose 106 H (74-99) mg/dL AST 10 L (14-36) U/L Total Protein 5.6 L (6.3-8.2) g/dL Albumin 2.5 L (3.5-5.0) g/dL Urine Appearance (Clear) Urine Protein (Negative) Urine Blood (Negative) Ur Leukocyte Esterase (Negative) Urine RBC (0-5) /hpf Urine WBC (0-5) /hpf Urine WBC Clumps (None) /hpf Urine Mucus (None) /hpf 12/06/17 12/06/17 Range/Units 09:03 09:38 WBC (3.8-10.6) k/uL Neutrophils # (1.3-7.7) k/uL Lymphocytes # (1.0-4.8) k/uL PT (9.0-12.0) sec INR (<1.2) D-Dimer 2.74 H (<0.60) mg/L FEU ABG pCO2 32 L (35-45) mmHg ABG pO2 353 H (83-108) mmHg ABG O2 Saturation 99.3 H (94-97) % Sodium (137-145) mmol/L BUN (7-17) mg/dL Glucose (74-99) mg/dL AST (14-36) U/L Total Protein (6.3-8.2) g/dL Albumin (3.5-5.0) g/dL Urine Appearance (Clear) Urine Protein (Negative) Urine Blood (Negative) Ur Leukocyte Esterase (Negative) Urine RBC (0-5) /hpf Urine WBC (0-5) /hpf Urine WBC Clumps (None) /hpf Urine Mucus (None) /hpf Microbiology - Last 24 Hours (Table) 12/05/17 14:33 Blood Culture - Final Blood 12/05/17 14:33 Urine Culture - Preliminary Urine,Catheterized Assessment and Plan Assessment: Acute hypoxic respiratory failure secondary to sepsis and mild CHF requiring BiPAP Mild acute CHF ejection fraction unknown 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 Complicated with De La Rosa catheter. Urinary tract infections related to indwelling De La Rosa catheter Hematuria likely due to UTI. Follow-up H&H Status post mechanical fall due to legs gave away Atrial fibrillation with rapid ventricular rate Recent cervical spine surgery about a month back Urine retention. On De La Rosa catheter since surgery in November 2017 Morbid obesity with BMI 51.5 Hypotension on admission due to sepsis and pain medications as well as rapid ventricular rate Osteoarthritis Plan: Antibiotics have been changed to Zosyn at this time. Ultrasound kidneys showed no hydronephrosis. Patient is currently on BiPAP patient. Also started on Levophed. Continue with IV fluids and 2-D echocardiogram was ordered. Urology , ID, pulmonary and cardiology is following. We will follow urine culture report. We will continue with the metoprolol and start back on anticoagulation. Monitor H&H. Further recommendations based on the clinical course. Discussed with her at bedside and with the patient as well. We will continue to follow closely. Time with Patient: Greater than 30
--- NOTE | 2017-12-07 21:36 | P.PN ---
Subjective Progress Note Date: 12/07/17 Principal diagnosis: Urinary tract infection Patient is a 67-year-old female with a known history of atrial fibrillation on antibiotics in for recently had spinal surgery cervical about a month ago [facility] with complaints of right lower back pain for the past 2 days. Patient says that her legs gave away about 2 days back and fell on her right side. Denies any hitting head. Patient is not able to twist back but says it does hurt more when she flexes her back to a sitting position. Patient denies bowel dysfunction and states she had a bowel movement today. Patient states she has been urinating less and her De La Rosa output is less than normal but unsure of the measurement. Patient took a Percocet about 2 hours ago which has helped her back pain since that time. Patient did have surgery on her thoracic spine on November 16 for spinal stenosis according to the patient. She has been unable to follow up with the surgeon as directed because she cannot walk down the stairs to leave the house. Patient states she is also experiencing burning urine and was diagnosed by [facility] with urinary tract infection. Patient is currently taking Keflex since yesterday.. She has had a de la rosa catheter in place since her surgery on the , and has been unable to follow up with the urologist as well. Patient had urine retention followed by surgery and since then patient is on De La Rosa catheter. Her next appointment for the urologist is on December 14 in [place]. She states she noticed her urine was bloody and she has had fevers and chills and has felt fatigued. Patient denies any shortness of breath, coughing, chest pain, or abdominal pain. Patient does admit to some suprapubic tenderness but denies pain. Patient was found have significant pyuria and the urinalysis. urine culture was sent. EKG showed atrial fibrillation with rapid regular rate Patient was febrile and tachycardic on admission. Patient had lumbar and thoracic spine x-ray was done in the ER. 12/06/2017 Patient became more shortness and hypoxic this morning. Patient was placed on BiPAP machine. Chest x-ray showed mild pulmonary aspirin condition otherwise patient was hypotensive and was started on Levophed. Pulmonary and cardiology has seen the patient. He was also on Cardizem drip for heart rate controlled. No fever today. Antibiotic 7J to Zosyn at this time. ID has been consulted as well. Patient denied any chest pain. No nausea vomiting or abdominal pain. Ultrasound of abdomen showed no hydronephrosis. 12/07/2017 Patient has been febrile today with T-max 103. Otherwise more awake and oriented. Patient is off Cardizem drip and Levophed. Hemodynamically stable. Urine culture showed gram-negative bacilli. No compressive chest pain or shortness of breath. No nausea vomiting or abdominal pain. All other review of systems negative except as above Current medications reviewed. Objective - Vital Signs Vital signs: Vital Signs Temp 98.1 F 12/07/17 19:44 Pulse 113 H 12/07/17 19:44 Resp 19 12/07/17 19:44 BP 109/58 12/07/17 19:44 Pulse Ox 98 12/07/17 19:44 Intake & Output 12/07/17 12/07/17 12/08/17 06:59 18:59 06:59 Intake Total 6397.446 3839.75 Output Total 780 755 Balance 705.500 650.75 Weight 151.1 kg Intake: IV 1250.0 850 0.9 NACL 1200 400 ACETAMINOPHEN IV (For NPO 400 ) 1,000 mg In Empty Bag 1 bag @ 400 mls/hr IVPB ONCE STA Rx#:[id number] zosyn 50.0 50 Intake, IV Titration 235.500 15.75 Amount Norepinephrin 4 mg-0.9% 235.500 15.75 Ns Pmx 4 mg In 250 ml @ Titrate IV .Q0M [facility] Rx#: [id number] Oral 540 Output: Urine 780 755 Other: Voiding Method Indwelling Catheter Indwelling Catheter - Exam Patient is lying in the bed comfortably, no acute distress, awake alert and oriented. Morbid obesity. HEENT: Normocephalic. Neck is supple. Pupils reactive. Nostrils clear. Oral cavity is moist. Ears reveal no drainage. Cervical spine surgical scar is intact. Neck reveals no JVD, carotid bruits, or thyromegaly. CHEST EXAMINATION: Trachea is central. Symmetrical expansion. Bilateral diminished air entry CARDIAC: Normal S1, S2 with no gallops. No murmurs irregularly irregular pulse ABDOMEN: Soft. Bowel sounds normal. No organomegaly. No abdominal bruits. Extremities: 1+ edema. No clubbing or cyanosis Neurologically awake, alert, oriented x3 with well-coordinated movements. No focal deficits noted Skin: No rash or skin lesions. Psychiatric: Cooperative. Nonsuicidal Musculoskeletal: No joint swelling or deformity. Normal range of motion. - Labs CBC & Chem 7: 12/07/17 04:48 12/07/17 04:48 Labs: Abnormal Lab Results - Last 24 Hours (Table) 12/07/17 12/07/17 Range/Units 04:48 04:48 WBC 15.2 H (3.8-10.6) k/uL RBC 3.71 L (3.80-5.40) m/uL Hgb 10.4 L (11.4-16.0) gm/dL MCHC 30.5 L (31.0-37.0) g/dL Neutrophils # 13.2 H (1.3-7.7) k/uL BUN 19 H (7-17) mg/dL Glucose 121 H (74-99) mg/dL Microbiology - Last 24 Hours (Table) 12/05/17 14:33 Blood Culture Gram Stain - Preliminary Blood Blood Culture - Preliminary Gram Neg Bacilli 12/05/17 14:33 Urine Culture - Final Urine,Catheterized Assessment and Plan Assessment: Acute hypoxic respiratory failure secondary to sepsis and mild CHF requiring BiPAP. Resolved now. Mild acute CHF with systolic. ejection fraction 45-50% Sepsis secondary to acute urinary tract infection. Complicated with De La Rosa catheter. Urinary tract infections related to indwelling De La Rosa catheter Hematuria likely due to UTI. Follow-up H&H Status post mechanical fall due to legs gave away Atrial fibrillation with rapid ventricular rate History of AICD placement Recent cervical spine surgery about a month back Urine retention. On De La Rosa catheter since surgery in November 2017 Morbid obesity with BMI 51.5 Hypotension on admission due to sepsis and pain medications as well as rapid ventricular rate Osteoarthritis Plan: Antibiotics have been changed to Zosyn at this time. Ultrasound kidneys showed no hydronephrosis. Patient is off BiPAP and Levophed. Continue with IV fluids 2-D echocardiogram showed Urology, ID, pulmonary and cardiology is following. We will follow final urine culture report. We will continue with the metoprolol and start back on anticoagulation. Monitor H&H. Further recommendations based on the clinical course. Discussed with her at bedside and with the patient as well. We will continue to follow closely. Time with Patient: Greater than 30
[2017-12-07] MEDS: oxyCODONE-APAP 5-325MG 1 EACH TAB PO PRN (22:26)
--- NOTE | 2017-12-07 23:26 | PN ---
PROGRESS NOTE DATE OF SERVICE: 12/07/2017 REASON FOR CONSULTATION: E. coli bacteremia secondary to urinary source with sepsis. INTERVAL HISTORY: The patient is afebrile. She is hemodynamically stable. The patient denies having any chest pain or shortness of breath. Minimal cough. No abdominal pain or any diarrhea. EXAMINATION: Blood pressure 109/58 with a pulse of 126, temperature 98.1. She is 98% on 6 L nasal cannula. General description is an elderly female, lying in bed in no distress. RESPIRATORY SYSTEM: Unlabored breathing. Clear to auscultation anteriorly. HEART: S1, S2. Regular rate and rhythm. ABDOMEN: Soft, no tenderness. EXTREMITIES: Some trace edema of feet. LABS: Hemoglobin is 10.4, white count 15.2, BUN of 19, creatinine 0.90. The blood culture did show an E. coli that was a sensitive pathogen, sensitive to Zosyn the patient is already on. DIAGNOSTIC IMPRESSION AND PLAN: Patient with Escherichia coli bacteremia, source is likely urinary. The patient did have significantly positive UA and did have a Francois catheter has been changed . White count is slightly on the higher side. We will keep the patient on Zosyn today and repeat the CBC tomorrow. If remains to be elevated, will need further workup to rule out other etiologies. Continue supportive care. MMODL / IJN: [id number] /
[2017-12-08] MEDS: ACETAMINOPHEN IV (For NPO) 1,000 MG in EMPTY BAG 1 BAG IVPB SCH ×3 (02:23→17:26)
[2017-12-08 05:45] LABS: Basophils % (A) 0 %; Eosinophils # (A) 0.1 k/uL (0-0.7); Eosinophils % (A) 1 %; HCT 31.7 % (34.0-46.0); HGB 9.5 gm/dL (11.4-16.0); Hypochromasia Moderate; Lymphocytes # (A) 1.5 k/uL (1.0-4.8); Lymphocytes % (A) 13 %; MCH 27.9 pg (25.0-35.0); Mean Platelet Volume 7.7; Monocytes # (A) 0.6 k/uL (0-1.0); Monocytes % (A) 5 %; Neutrophils # (A) 8.7 k/uL (1.3-7.7); Neutrophils % (A) 78 %; Platelet Count 228 k/uL (150-450); WBC 11.1 k/uL (3.8-10.6)
[2017-12-08 06:15] LABS: Calcium 8.6 mg/dL (8.4-10.2); Phosphorus 4.5 mg/dL (2.5-4.5); Potassium 4.7 mmol/L (3.5-5.1)
[2017-12-08] MEDS: CARVEDILOL 6.25 MG TAB PO SCH ×2 (06:42→17:30)
[2017-12-08] MEDS: FAMOTIDINE 20 MG TAB PO SCH (08:46)
[2017-12-08] MEDS: ZINC SULFATE 220 MG CAP PO SCH (08:46)
[2017-12-08] MEDS: PIPERACILLIN-TAZOBACTAM 3.375 GM in DEXTROSE/WATER 1 50ML.BAG IVPB SCH ×2 (08:46→17:29)
[2017-12-08] MEDS: DOCUSATE 100 MG CAP PO SCH (08:46)
[2017-12-08] MEDS: oxyCODONE-APAP 5-325MG 1 EACH TAB PO PRN (11:54)
[2017-12-08] MEDS ORDERED: SODIUM CHLORIDE 0.9% 1,000 ML IV ONE (15:31)
[2017-12-08] MEDS: LORazepam 2 MG/ML INJ IV PRN (15:43)
[2017-12-08] MEDS: ACETAMINOPHEN IV (For NPO) 1,000 MG in EMPTY BAG 1 BAG IVPB PRN ×2 (15:45→17:24)
--- NOTE | 2017-12-08 16:02 | XR ---
EXAMINATION TYPE: XR chest 1V DATE OF EXAM: 12/08/2017 COMPARISON: Prior chest x-ray 12/07/2017 HISTORY: Acute dyspnea, increased shortness of breath TECHNIQUE: Single frontal view of the chest is obtained. FINDINGS: The heart is enlarged. Intracardiac defibrillator leads again noted. Postop change noted t o the upper thoracic spine. Pulmonary vascularity and interstitium are increased. Lung volumes are lo w. No evident pneumothorax. There are overlying cardiac leads. IMPRESSION: Correlate for pulmonary venous hypertension and interstitial edema. Rotated expiratory e xam, follow-up recommended.
[2017-12-08 16:24] LABS: ABG PCO2 37 mmHg (35-45); ABG PH 7.37 (7.35-7.45)
[2017-12-08 16:25] LABS: Albumin 2.8 g/dL (3.5-5.0); Calcium 8.9 mg/dL (8.4-10.2); Total Bilirubin 1.3 mg/dL (0.2-1.3); Total Protein 6.4 g/dL (6.3-8.2)
[2017-12-08 16:25] LABS: ABG HCO3 21 mmol/L (21-25); ABG PO2 100 mmHg (83-108); ABG TCO2 23 mmol/L (19-24)
[2017-12-08 16:35] LABS: Potassium 6.3 mmol/L (3.5-5.1)
[2017-12-08 16:42] LABS: HCT 34.7 % (34.0-46.0); HGB 10.8 gm/dL (11.4-16.0); Hypochromasia Moderate; MCH 28.8 pg (25.0-35.0); Mean Platelet Volume 7.6; Platelet Count 266 k/uL (150-450); RBC 3.73 m/uL (3.80-5.40); WBC 12.1 k/uL (3.8-10.6)
--- NOTE | 2017-12-08 17:02 | P.PN ---
Subjective Progress Note Date: 12/08/17 Acute hypoxic respiratory failure secondary to acute sepsis related to acute urinary tract infection Viola is a 67-year-old white female patient of Dr. Combs, who presented to the emergency department on 12/05/2017 at 1352 with complaints of lower back pain, weakness in bilateral lower extremities, gait dysfunction, a fall at home occurring 2 days ago. Patient complained of decreased urinary output from her indwelling catheter. Patient had a recent thoracic spine surgery on 11/16/2017 for spinal stenosis and has had the Francois catheter since the surgery. She was being followed by a visiting nurse at home. She also noted hematuria, and was having fever and chills and overall generalized fatigue. She denies any shortness of breath, denies any chest pain, denies any chest congestion and sputum production. Denies any abdominal pain. Was having suprapubic tenderness on admission, which is not present now. EKG showed atrial fibrillation with rapid ventricular rate, patient was febrile and tachycardic on admission, temp was 100.5F, and a heart rate was ranging from 113-122 BPM. Lumbar x-ray shows scoliosis with multilevel degenerative severe disc disease, mild superior endplate compression deformity of L3 of indeterminate age. Thoracic spine x-ray was taken and showed C3-C4 posterior thoracic fusion hardware. Urinalysis showed significant pyuria and bacteriuria. Patient was started on Rocephin, IV 0.9 was infusing at 100 ML per hour. This morning of rapid response team was called in regards to patient's experiencing severe respiratory distress, fevers, chills. Patient was placed on BiPAP support, and was transferred to the intensive care. Chest x-ray showed mild cardiomegaly and interstitial prominence, AICD was noted. Patient's other medical history includes obstructive sleep apnea, cardiomyopathy, status post AICD placement, osteoarthritis, hypertension, obesity, chronic atrial fibrillation, arthritis. Lactic acid on admission was 1.0, on admission to ICU was 1.5. Patient is maintaining normal blood pressures, no hypotension at this time. Blood gas showed pH is 7.42, pCO2 32, pO2 of 353, this was done and FiO2 of 100%. Sepsis protocol has been initiated, blood cultures urine cultures have been ordered and sent. And are pending at this time. Ultrasound of the kidney showed no evident hydronephrosis. At the time of evaluation patient is seen on BiPAP support, fairly comfortable, is awake alert, and able to respond appropriately. FiO2 was decreased down to 45%. Continue IV fluids at a rate of 100 ML per hour. On 12/07/2017 patient seen in follow-up in intensive care unit. She did not require BiPAP last night. Norepinephrine drip was discontinued this morning at 8:00. No febrile episodes since yesterday on 12/06/2017 at 10 AM with the T- max of 103.1F. One low-grade fever with a temp of 99.9F at 4:00 this morning. Patient's urine still positive for some sediment, lightly cloudy, but improving. Urine output is ranging from 30-80 ML per hour. Lung sounds are positive for a few faint wheezes at the bases, no rales or rhonchi noted. Patient remains on 2 L per nasal cannula with O2 sat 96%. Hemodynamically stable. Remains slightly tachycardic, remains in A. fib, with a heart rate ranging between 98-108 BPM. We will try to set restart Coreg today at 6.25 mg twice a day. Cardizem drip has been discontinued last night. 0.9 is infusing at a rate of 100 ML per hour, yesterday patient received 2 L of 0.9 normal saline fluid bolus. She is developing worsening bilateral lower extremity edema , she is tolerating oral intake, we will decrease the IV rate of maintenance fluids to 20 ML per hour. Today's lab work showed a CBC of 15.2, hemoglobin is 10.4, sodium is 137, potassium is 4.8, BUN is 19, creatinine 0.90. Urine culture from 12/02/2017 was positive for E. coli, blood culture from 12/05/2017 was positive for gram-negative bacilli. Urine culture from 12/05/2017 showed no growth. On 12/08/2017 the patient was seen in follow-up in the medical floor. The patient is on a telemetry unit. Noted the patient was admitted intensive care for E. coli urine checked infection and sepsis. The patient was hypotensive. The patient was was resuscitated. Patient was taken off norepinephrine and she was transferred to the floor on a stable condition. Her atrial fibrillation was also under good control. Note that I talked to the nurses and she was doing well and around hour ago the patient became acutely ill, cold and then subsequently hot and warm and then she spiked a temperature of 102. She started having tremors. She started getting tachypneic and tachycardic and short of breath. During this time, the patient had a heart rate of 120 to 1: 30. The blood pressure was okay, and she was running a lower blood pressure that was 81/65 at around 9:00 and 93/67 at around noontime and later on during this episode the patient's blood pressure even went up higher. She became hypoxic however and on 5 L of oxygen nasal cannula her pulse ox dropped down to 83%. She was placed on 100% nonrebreather facemask. Producing urine output. At that point, the patient was given IV Tylenol. A stat blood gases were obtained and showed a pH of 7.37 with a pCO2 of 37 and pO2 100 on the percent nonrebreather facemask. The patient was given 500 mL of IV bolus. The patient had stat blood work that showed a white cell count of 12.1 and the rest of the electrodes are still pending for now. Note that that morning potassium was at 6.3 and the sample was slightly hemolyzed. Her renal function was within normal limits. The patient was taken off Cardizem drip. I ordered to restart Cardizem drip at 10 mg an hour. The patient is on IV Zosyn regarding the E. coli urine checked infection and sepsis. The patient is on Xarelto as long- term and coagulation regarding atrial fibrillation. As such possibility of pulmonary embolism is felt to be less likely. The chest x-ray was also obtained emergent basis and showed some pulmonary vascular congestion. The film itself was rotated and was suboptimal. Lung volumes were all low. The patient herself became lethargic and she was still following commands and answering questions appropriately. Objective - Vital Signs Vital signs: Vital Signs Temp 97.8 F 12/08/17 12:25 Pulse 111 H 12/08/17 12:25 Resp 18 12/08/17 12:25 BP 93/67 12/08/17 12:25 Pulse Ox 100 12/08/17 12:25 Intake & Output 12/07/17 12/08/17 12/08/17 18:59 06:59 18:59 Intake Total 1405.75 860 720 Output Total 755 350 400 Balance 650.75 510 320 Weight 150.5 kg Intake: IV 850 860 0.9 NACL 400 60 ACETAMINOPHEN IV (For NPO 400 800 ) 1,000 mg In Empty Bag 1 bag @ 400 mls/hr IVPB ONCE STA Rx#:[id number] zosyn 50 Intake, IV Titration 15.75 Amount Norepinephrin 4 mg-0.9% 15.75 Ns Pmx 4 mg In 250 ml @ Titrate IV .Q0M [facility] Rx#: [id number] Oral 540 720 Output: Urine 755 350 400 Other: Voiding Method Indwelling Catheter - Exam GENERAL EXAM: The patient is ill-looking. The patient is an 100% on a beta facemasks. She is tachypneic and having shivers and tremors. She is still awake and following commands and answering questions appropriately. HEAD: Normocephalic/atraumatic. EYES: Normal reaction of pupils, equal size. Conjunctiva pink, sclera white. NOSE: Clear with pink turbinates. THROAT: No erythema or exudates. NECK: No masses, no JVD, no thyroid enlargement, no adenopathy. CHEST: No chest wall deformity. Symmetrical expansion. LUNGS: Equal air entry with no crackles, wheeze, a few scattered rhonchi, faint wheezes at bilateral bases noted. CVS: Irregular rhythm and rate and the patient is somewhat tachycardic , normal S1 and S2, no gallops, no murmurs, no rubs ABDOMEN: Soft, nontender. No hepatosplenomegaly, normal bowel sounds, no guarding or rigidity. EXTREMITIES: No clubbing, 2+ nonpitting edema in bilateral lower extremities noted, no cyanosis, 2+ pulses and upper and lower extremities. MUSCULOSKELETAL: Muscle strength and tone normal. SPINE: No scoliosis or deformity SKIN: No rashes CENTRAL NERVOUS SYSTEM: Alert and oriented -3. No focal deficits, tone is normal in all 4 extremities. PSYCHIATRIC: Alert and oriented -3. Appropriate affect. Intact judgment and insight. - Labs CBC & Chem 7: 12/08/17 16:27 12/08/17 15:47 Labs: Abnormal Lab Results - Last 24 Hours (Table) 12/08/17 12/08/17 12/08/17 Range/Units 05:22 05:22 15:47 WBC 11.1 H (3.8-10.6) k/uL RBC 3.40 L (3.80-5.40) m/uL Hgb 9.5 L (11.4-16.0) gm/dL Hct 31.7 L (34.0-46.0) % MCHC 30.0 L (31.0-37.0) g/dL Neutrophils # 8.7 H (1.3-7.7) k/uL ABG O2 Saturation (94-97) % Potassium 6.3 H* (3.5-5.1) mmol/L Chloride 108 H (98-107) mmol/L Carbon Dioxide 20 L (22-30) mmol/L BUN 22 H 24 H (7-17) mg/dL Creatinine 1.10 H (0.52-1.04) mg/dL Glucose 100 H 102 H (74-99) mg/dL AST 40 H (14-36) U/L Albumin 2.8 L (3.5-5.0) g/dL 12/08/17 12/08/17 Range/Units 16:08 16:27 WBC 12.1 H (3.8-10.6) k/uL RBC 3.73 L (3.80-5.40) m/uL Hgb 10.8 L (11.4-16.0) gm/dL Hct (34.0-46.0) % MCHC (31.0-37.0) g/dL Neutrophils # (1.3-7.7) k/uL ABG O2 Saturation 98.0 H (94-97) % Potassium (3.5-5.1) mmol/L Chloride (98-107) mmol/L Carbon Dioxide (22-30) mmol/L BUN (7-17) mg/dL Creatinine (0.52-1.04) mg/dL Glucose (74-99) mg/dL AST (14-36) U/L Albumin (3.5-5.0) g/dL Microbiology - Last 24 Hours (Table) 12/05/17 14:33 Blood Culture Gram Stain - Final Blood Blood Culture - Final Escherichia coli Assessment and Plan Plan: Assessment: #1. Sepsis secondary to urinary tract infection. The patient is confirmed to have E. coli septicemia. She is having recurrent right girdles, chills and tachycardia and tachypnea and I think all these are manifestations of ongoing septicemia. #2. Acute worsening shortness of breath/hypoxemia likely secondary to above. Chest x-ray is not showing any acute pneumonia and the patient is on long-term articulation with Xarelto and the possibility of pulmonary embolism is felt to be less likely. #3. Atrial fibrillation with rapid ventricular response, patient is on chronic anticoagulation with Xarelto, she became again tachycardic and the patient will be started back on a Cardizem drip #4. Interstitial prominence, cardiomegaly consistent with mild systolic CHF #5. Cardiomyopathy, status post AICD placement, EF is 45-50% #6. Obstructive sleep apnea, with baseline AHI of 23 #7. Hypertension #8. Obesity #9. Recent thoracic spine surgery for spinal stenosis on November 2017 #10. Chronic indwelling catheter for urinary retention post thoracic spine surgery #11. Osteoarthritis #12. Elevated d-dimer, nonspecific Plan The stat blood work was noted. Awaiting the electrolytes of consent will be to monitor potassium level in the renal function. White cell count is not elevated. We'll give IV Tylenol regarding the right girdles. Continued IV Zosyn. Consult infectious disease. Obtain an echocardiogram to assess LV function and make sure there is no endocarditis or any other complications. We' ll give her 100% nonrebreather facemask. We'll may need to use BiPAP if she shows any respiratory decompensation. We'll give her a bolus of 500 mL of normal saline and restart fluids at the rate of 75 mL an hour. She some Ativan for agitation and increased anxiety. This will be given to her. We'll restart Cardizem for better rate control. Continue Xarelto. She may need to come back to the intensive care unit for further monitoring. Condition is somewhat guarded at this point.
[2017-12-08] MEDS: SODIUM CHLORIDE 0.9% 1,000 ML IV SCH (17:20)
[2017-12-08] MEDS: DILTIAZEM 50 MG in SODIUM CHLORIDE 0.9% 40 ML IV SCH ×2 (17:21→21:39)
[2017-12-08] MEDS: RIVAROXABAN 20 MG TAB PO SCH (17:30)
[2017-12-08] MEDS ORDERED: VANCOMYCIN IV PER PHARMACY 1 EACH MISC MISCELLANE PRN (19:01)
--- NOTE | 2017-12-08 19:51 | PN ---
PROGRESS NOTE DATE OF SERVICE: 12/08/2017. REASON FOR FOLLOW UP: E coli bacteremia. Source is likely urinary or abdominal pathology. INTERVAL HISTORY: The patient is seen on rounds earlier this afternoon. The patient was afebrile. Overall, the patient was doing well, did require some BiPAP last night. No nausea, vomiting, or any diarrhea. Subsequently, around 5 o'clock, the patient did spike a fever of 103.8 Fahrenheit. The patient was tachycardic, tachypneic, requiring a Venti mask for which further workup has been ordered including a blood cultures. White count remains to be mildly elevated of 12.1 with 11.1 this morning. No choking on food noticed by the nursing staff or any diarrhea. REVIEW OF SYMPTOMS: Review of systems was positive for some weakness, shortness of breath, but no cough or any choking on the food. Past medical and surgical history were reviewed. MEDICATION: Reviewed. EXAMINATION: Her blood pressure 96/48 with a pulse of 103, temperature 103.8. She is 92% on 50% Venti mask. General Description is an elderly female lying in bed and no distress. HEENT: Shows slight pallor. No scleral icterus. Oral mucosa membrane is dry. No thrush. NECK: Trachea central. No thyromegaly. LUNGS: Unlabored breathing, decreased breath sounds in the bases. No wheeze or crackle. HEART: S1, S2. Tachycardic and irregular. ABDOMEN: Soft, no guarding, rigidity. No organomegaly. EXTREMITIES: Some trace edema of feet. LABS: Hemoglobin 10.8, white count of 12.1. BUN of 24, creatinine 1.0. Blood culture with an E coli that is sensitive Zosyn that patient is already on. However, the urine cultures are negative. The patient UA was significantly positive. DIAGNOSTIC IMPRESSION AND PLAN: Patient with gram-negative sepsis with an E coli bacteremia. The patient is on appropriate antibiotic for this pathogen, which is growing in the urine. Urine was significantly positive on admission with concern for possibly urinary source and now with new fever and worsening respiratory status with question of possible aspiration pneumonitis not entirely excluded. Hence, will need further workup for this new fever. The urine culture coming back negative. We will look for other etiologies. Intraabdominal pathology for this bacteremia. Further work including at this point that has been ordered is a blood culture x2, influenza PCR, sputum has been requested and will check a CT abdominal pelvis with oral contrast only. Adjust the medication further depending upon the clinical response as well as culture. Dr. Myers will follow this patient over the weekend when I am off. JARRETT / WOODY: [id number] /
[2017-12-08] MEDS: IOHEXOL 350 MG/ML 25 ML BOTTLE (ORAL USE) PO PRN ×2 (19:58→21:05)
[2017-12-08] MEDS: VANCOMYCIN 2,500 MG in SODIUM CHLORIDE 0.9% 500 ML IVPB SCH (21:15)
[2017-12-08] MEDS: ACETAMINOPHEN TAB 325 MG TAB PO PRN (21:37)
[2017-12-08] MEDS: DILTIAZEM 125 MG in SODIUM CHLORIDE 0.9% 100 ML IV SCH (23:12)
[2017-12-09] MEDS: PIPERACILLIN-TAZOBACTAM 3.375 GM in DEXTROSE/WATER 1 50ML.BAG IVPB SCH ×3 (01:40→16:06)
[2017-12-09] MEDS: DILTIAZEM 50 MG in SODIUM CHLORIDE 0.9% 40 ML IV SCH (03:16)
[2017-12-09] MEDS: CARVEDILOL 6.25 MG TAB PO SCH ×2 (06:49→17:18)
[2017-12-09 06:58] LABS: Basophils % (A) 0 %; Eosinophils # (A) 0.1 k/uL (0-0.7); Eosinophils % (A) 1 %; HCT 32.2 % (34.0-46.0); HGB 9.8 gm/dL (11.4-16.0); Hypochromasia Moderate; Lymphocytes # (A) 1.4 k/uL (1.0-4.8); Lymphocytes % (A) 11 %; MCH 28.3 pg (25.0-35.0); MCHC 30.5 g/dL (31.0-37.0); MCV 92.6 fL (80.0-100.0); Mean Platelet Volume 7.8; Monocytes # (A) 0.6 k/uL (0-1.0); Monocytes % (A) 5 %; Neutrophils # (A) 10.5 k/uL (1.3-7.7); Neutrophils % (A) 81 %; Platelet Count 255 k/uL (150-450); RBC 3.48 m/uL (3.80-5.40)
[2017-12-09 07:27] LABS: Calcium 8.4 mg/dL (8.4-10.2); Magnesium 1.9 mg/dL (1.6-2.3); Phosphorus 4.5 mg/dL (2.5-4.5); Potassium 4.7 mmol/L (3.5-5.1)
[2017-12-09] MEDS: ZINC SULFATE 220 MG CAP PO SCH (08:55)
[2017-12-09] MEDS: DOCUSATE 100 MG CAP PO SCH (08:55)
[2017-12-09] MEDS: DILTIAZEM ORAL 60 MG TAB PO SCH ×4 (08:55→22:18)
[2017-12-09] MEDS: FAMOTIDINE 20 MG TAB PO SCH (08:55)
[2017-12-09] MEDS: IOHEXOL 350 MG/ML 25 ML BOTTLE (ORAL USE) PO PRN ×2 (10:03→11:56)
[2017-12-09] MEDS: oxyCODONE-APAP 5-325MG 1 EACH TAB PO PRN (10:07)
[2017-12-09] MEDS: ACETAMINOPHEN TAB 325 MG TAB PO PRN ×2 (15:03→22:18)
[2017-12-09] MEDS: SODIUM CHLORIDE 0.9% 1,000 ML IV SCH (15:12)
--- NOTE | 2017-12-09 16:08 | P.PN ---
Subjective Progress Note Date: 12/09/17 Acute hypoxic respiratory failure secondary to acute sepsis related to acute urinary tract infection Viola is a 67-year-old white female patient of Dr. Combs, who presented to the emergency department on 12/05/2017 at 1352 with complaints of lower back pain, weakness in bilateral lower extremities, gait dysfunction, a fall at home occurring 2 days ago. Patient complained of decreased urinary output from her indwelling catheter. Patient had a recent thoracic spine surgery on 11/16/2017 for spinal stenosis and has had the Francois catheter since the surgery. She was being followed by a visiting nurse at home. She also noted hematuria, and was having fever and chills and overall generalized fatigue. She denies any shortness of breath, denies any chest pain, denies any chest congestion and sputum production. Denies any abdominal pain. Was having suprapubic tenderness on admission, which is not present now. EKG showed atrial fibrillation with rapid ventricular rate, patient was febrile and tachycardic on admission, temp was 100.5F, and a heart rate was ranging from 113-122 BPM. Lumbar x-ray shows scoliosis with multilevel degenerative severe disc disease, mild superior endplate compression deformity of L3 of indeterminate age. Thoracic spine x-ray was taken and showed C3-C4 posterior thoracic fusion hardware. Urinalysis showed significant pyuria and bacteriuria. Patient was started on Rocephin, IV 0.9 was infusing at 100 ML per hour. This morning of rapid response team was called in regards to patient's experiencing severe respiratory distress, fevers, chills. Patient was placed on BiPAP support, and was transferred to the intensive care. Chest x-ray showed mild cardiomegaly and interstitial prominence, AICD was noted. Patient's other medical history includes obstructive sleep apnea, cardiomyopathy, status post AICD placement, osteoarthritis, hypertension, obesity, chronic atrial fibrillation, arthritis. Lactic acid on admission was 1.0, on admission to ICU was 1.5. Patient is maintaining normal blood pressures, no hypotension at this time. Blood gas showed pH is 7.42, pCO2 32, pO2 of 353, this was done and FiO2 of 100%. Sepsis protocol has been initiated, blood cultures urine cultures have been ordered and sent. And are pending at this time. Ultrasound of the kidney showed no evident hydronephrosis. At the time of evaluation patient is seen on BiPAP support, fairly comfortable, is awake alert, and able to respond appropriately. FiO2 was decreased down to 45%. Continue IV fluids at a rate of 100 ML per hour. On 12/07/2017 patient seen in follow-up in intensive care unit. She did not require BiPAP last night. Norepinephrine drip was discontinued this morning at 8:00. No febrile episodes since yesterday on 12/06/2017 at 10 AM with the T- max of 103.1F. One low-grade fever with a temp of 99.9F at 4:00 this morning. Patient's urine still positive for some sediment, lightly cloudy, but improving. Urine output is ranging from 30-80 ML per hour. Lung sounds are positive for a few faint wheezes at the bases, no rales or rhonchi noted. Patient remains on 2 L per nasal cannula with O2 sat 96%. Hemodynamically stable. Remains slightly tachycardic, remains in A. fib, with a heart rate ranging between 98-108 BPM. We will try to set restart Coreg today at 6.25 mg twice a day. Cardizem drip has been discontinued last night. 0.9 is infusing at a rate of 100 ML per hour, yesterday patient received 2 L of 0.9 normal saline fluid bolus. She is developing worsening bilateral lower extremity edema , she is tolerating oral intake, we will decrease the IV rate of maintenance fluids to 20 ML per hour. Today's lab work showed a CBC of 15.2, hemoglobin is 10.4, sodium is 137, potassium is 4.8, BUN is 19, creatinine 0.90. Urine culture from 12/02/2017 was positive for E. coli, blood culture from 12/05/2017 was positive for gram-negative bacilli. Urine culture from 12/05/2017 showed no growth. On 12/08/2017 the patient was seen in follow-up in the medical floor. The patient is on a telemetry unit. Noted the patient was admitted intensive care for E. coli urine checked infection and sepsis. The patient was hypotensive. The patient was was resuscitated. Patient was taken off norepinephrine and she was transferred to the floor on a stable condition. Her atrial fibrillation was also under good control. Note that I talked to the nurses and she was doing well and around hour ago the patient became acutely ill, cold and then subsequently hot and warm and then she spiked a temperature of 102. She started having tremors. She started getting tachypneic and tachycardic and short of breath. During this time, the patient had a heart rate of 120 to 1: 30. The blood pressure was okay, and she was running a lower blood pressure that was 81/65 at around 9:00 and 93/67 at around noontime and later on during this episode the patient's blood pressure even went up higher. She became hypoxic however and on 5 L of oxygen nasal cannula her pulse ox dropped down to 83%. She was placed on 100% nonrebreather facemask. Producing urine output. At that point, the patient was given IV Tylenol. A stat blood gases were obtained and showed a pH of 7.37 with a pCO2 of 37 and pO2 100 on the percent nonrebreather facemask. The patient was given 500 mL of IV bolus. The patient had stat blood work that showed a white cell count of 12.1 and the rest of the electrodes are still pending for now. Note that that morning potassium was at 6.3 and the sample was slightly hemolyzed. Her renal function was within normal limits. The patient was taken off Cardizem drip. I ordered to restart Cardizem drip at 10 mg an hour. The patient is on IV Zosyn regarding the E. coli urine checked infection and sepsis. The patient is on Xarelto as long- term and coagulation regarding atrial fibrillation. As such possibility of pulmonary embolism is felt to be less likely. The chest x-ray was also obtained emergent basis and showed some pulmonary vascular congestion. The film itself was rotated and was suboptimal. Lung volumes were all low. The patient herself became lethargic and she was still following commands and answering questions appropriately. On 12/09/2017, the patient is being seen for a follow-up. Much improved compared to yesterday. No bright GERD or chills. Hemodynamically stable. The blood culture was positive for E. coli. The patient is currently on IV Zosyn. She is doing well. She is afebrile. Francois catheter in place. She is producing adequate amount of urine output. She is still negative fibrillation rate is controlled and the patient is currently off the Cardizem drip. No nausea. No vomiting. No abdominal pain. She is complaining of lower back pain as the patient had fallen. Surgical wound site over the upper back area is clean. No altered mentation. is at the bedside. Patient remained on anticoagulation with Xarelto regarding her chronic atrial fibrillation. She is tolerating her diet. She is morbidly obese. She is weak. Somewhat debilitated. May benefit from rehabilitation. Objective - Vital Signs Vital signs: Vital Signs Temp 99 F 12/09/17 12:00 Pulse 103 H 12/09/17 12:00 Resp 20 12/09/17 12:00 BP 112/46 12/09/17 12:00 Pulse Ox 97 12/09/17 12:00 Intake & Output 12/08/17 12/09/17 12/09/17 18:59 06:59 18:59 Intake Total 720 583 50 Output Total 700 550 Balance 20 33 50 Weight 155.5 kg Intake: IV 240 0.9 NACL 160 cardizem 80 Intake, IV Titration 43 50 Amount Diltiazem 50 mg In Sodium 43 Chloride 0.9% 40 ml @ 10 MG/HR 10 mls/hr IV .Q5H TIFFANY Rx#:[id number] Piperacillin-Tazobactam 3 50 .375 gm In Dextrose/Water 1 50ml.bag @ 12.5 mls/hr IVPB Q8HR TIFFANY Rx#: [id number] Oral 720 300 Output: Urine 700 550 Other: Voiding Method Indwelling Catheter # Voids 1 # Bowel Movements 1 - Exam GENERAL EXAM: Patient is calm and comfortable and awake and alert and she is following commands and answering questions appropriately. No altered mentation. No tachycardia or tachypnea respiratory distress with this on today' s evaluation. HEAD: Normocephalic/atraumatic. EYES: Normal reaction of pupils, equal size. Conjunctiva pink, sclera white. NOSE: Clear with pink turbinates. THROAT: No erythema or exudates. NECK: No masses, no JVD, no thyroid enlargement, no adenopathy. CHEST: No chest wall deformity. Symmetrical expansion. LUNGS: Equal air entry with no crackles, wheeze, a few scattered rhonchi, faint wheezes at bilateral bases noted. CVS: Irregular rhythm and rate and the patient is somewhat tachycardic , normal S1 and S2, no gallops, no murmurs, no rubs ABDOMEN: Soft, nontender. No hepatosplenomegaly, normal bowel sounds, no guarding or rigidity. EXTREMITIES: No clubbing, 2+ nonpitting edema in bilateral lower extremities noted, no cyanosis, 2+ pulses and upper and lower extremities. MUSCULOSKELETAL: Muscle strength and tone normal. SPINE: No scoliosis or deformity SKIN: No rashes CENTRAL NERVOUS SYSTEM: Alert and oriented -3. No focal deficits, tone is normal in all 4 extremities. PSYCHIATRIC: Alert and oriented -3. Appropriate affect. Intact judgment and insight. - Labs CBC & Chem 7: 12/09/17 06:14 12/09/17 06:14 Labs: Abnormal Lab Results - Last 24 Hours (Table) 12/08/17 12/08/17 12/08/17 Range/Units 15:47 16:08 16:27 WBC 12.1 H (3.8-10.6) k/uL RBC 3.73 L (3.80-5.40) m/uL Hgb 10.8 L (11.4-16.0) gm/dL Hct (34.0-46.0) % MCHC (31.0-37.0) g/dL Neutrophils # (1.3-7.7) k/uL ABG O2 Saturation 98.0 H (94-97) % Potassium 6.3 H* (3.5-5.1) mmol/L Chloride 108 H (98-107) mmol/L Carbon Dioxide 20 L (22-30) mmol/L BUN 24 H (7-17) mg/dL Glucose 102 H (74-99) mg/dL AST 40 H (14-36) U/L Albumin 2.8 L (3.5-5.0) g/dL 12/09/17 12/09/17 Range/Units 06:14 06:14 WBC 13.0 H (3.8-10.6) k/uL RBC 3.48 L (3.80-5.40) m/uL Hgb 9.8 L (11.4-16.0) gm/dL Hct 32.2 L (34.0-46.0) % MCHC 30.5 L (31.0-37.0) g/dL Neutrophils # 10.5 H (1.3-7.7) k/uL ABG O2 Saturation (94-97) % Potassium (3.5-5.1) mmol/L Chloride (98-107) mmol/L Carbon Dioxide (22-30) mmol/L BUN 24 H (7-17) mg/dL Glucose (74-99) mg/dL AST (14-36) U/L Albumin (3.5-5.0) g/dL Assessment and Plan Plan: Assessment: #1. Sepsis secondary to urinary tract infection. The patient is confirmed to have E. coli septicemia. The patient's last temperature spike was yesterday afternoon and since then she has been afebrile still on IV Zosyn and the blood culture was positive for E. coli. #2. Acute worsening shortness of breath/hypoxemia likely secondary to above. The patient shortness of breath is improved and she is back to her baseline. #3. Atrial fibrillation with rapid ventricular response, recovered and the patient is currently off the Cardizem drip and she is back on Coreg 6.25 mg by mouth twice a day #4. Interstitial prominence, cardiomegaly consistent with mild systolic CHF #5. Cardiomyopathy, status post AICD placement, EF is 45-50% #6. Obstructive sleep apnea, with baseline AHI of 23 #7. Hypertension #8. Obesity #9. Recent thoracic spine surgery for spinal stenosis on November 2017 #10. Chronic indwelling catheter for urinary retention post thoracic spine surgery #11. Osteoarthritis #12. Elevated d-dimer, nonspecific Plan Continue IV Zosyn. Monitor hemodynamics. Monitor fever pattern. Oral Coreg regarding her chronic atrial fibrillation rate is well-controlled for now. The patient is on Xarelto for anticoagulation. Francois catheter is in place. Provide the patient incentive spirometer. Continued IV fluids. We'll continue to follow make further recommendations based on her progress. Note that based on the events that occurred yesterday, a CAT scan of the abdomen and pelvis was also ordered on this patient and this will be useful to characterize any abnormalities within the abdomen and pelvis contributing to her chronic urinary retention. We'll be following the results of the CAT scan of the abdomen and pelvis. We'll follow.
--- NOTE | 2017-12-09 16:49 | CT ---
EXAMINATION TYPE: CT abdomen pelvis wo con DATE OF EXAM: 12/09/2017 HISTORY: sepsis and e.coli bacteremia. UTI and back pain. CT DLP: 3026.8 mGycm. Automated Exposure Control for Dose Reduction was Utilized. TECHNIQUE: CT scan of the abdomen and pelvis is performed with oral but without IV contrast. COMPARISON: Renal ultrasound from 3 days ago FINDINGS: Within the limitations of a non-contrast study, the following observations are made. Exam noted suboptimal secondary to patient's large body habitus. LUNG BASES: Cardiomegaly is appreciated. There is right-sided pacemaker/defibrillator wire. There is small pericardial effusion. There is tiny left pleural effusion and associated left basilar atelectas is. There is small right pleural effusion and associated compressive atelectasis. LIVER/GB: Gallbladder has distended margins. No surrounding inflammatory changes seen. Small amount o f ascites lateral margin of liver is present. PANCREAS: No significant abnormality is seen. SPLEEN: There is 1.5 cm splenule in the posterior splenic hilum axial image 21. ADRENALS: No significant abnormality is seen. KIDNEYS: There is mild to moderate perinephric fat stranding bilaterally nonspecific finding likely o n basis of chronic medical renal disease. There are scattered heterogeneous hypodense lesions through out both kidneys likely reflecting simple cysts as seen on recent ultrasound. There is some prominenc e of posterior retroperitoneal fat noted. There is Francois catheter within inferior aspect of bladder w hich is decompressed and thus suboptimally evaluated. BOWEL: The oral contrast reaches level of rectum. There is normal contrast filled appendix identified . There is no suspicious small or large bowel dilatation seen. GENITAL ORGANS: Anteverted uterus is present. There is small amount of free fluid in pelvic cul-de-sa c axial image 80. LYMPH NODES: No greater than 1cm abdominal or pelvic lymph nodes are appreciated. OSSEOUS STRUCTURES: There is moderate multilevel spurring in the thoracolumbar spine. There is modera te disc space narrowing and spurring L2-L3 level. There is underlying levoconvex scoliosis centered i n the mid lumbar spine. OTHER: There is mild diffuse soft tissue anasarca. IMPRESSION: No suspicious acute finding identified. Scoliosis and multilevel chronic degenerative rebecca nge in the lumbar spine are felt present.
[2017-12-09] MEDS: RIVAROXABAN 20 MG TAB PO SCH (17:18)
--- NOTE | 2017-12-09 21:03 | P.PN ---
Subjective Progress Note Date: 12/09/17 Principal diagnosis: Sepsis, uti 67-year-old female who has superobesity is had difficulties with her back and underwent a spinal stenosis surgery last month. She was recuperating but apparently 2 days before admission she suffered a fall at home. She complained of increasing amounts of pain and also with hematuria. She related that since her surgery for the catheters been in place because of difficulties with her urinary system. At the time of presentation there was hematuria and concerns from sepsis from urinary system. Yesterday team was called and she had respiratory distress required BiPAP treatment. She had a short time in the intensive care unit and had a rapid improvement of her respiratory status with treatments and diuresis. Now back to the selective care unit and feeling better. She's having no new complaints this evening. She is very weak and her back pain is stable. Francois catheter is in place and other than some discomfort from the catheter she has no other new acute complaints. It was noted the patient was also very weak and had atrial fibrillation with a rapid ventricular response and has been treated with Cardizem with improvement. Objective - Vital Signs Vital signs: Vital Signs Temp 98.2 F 12/09/17 16:00 Pulse 85 12/09/17 16:00 Resp 18 12/09/17 16:00 BP 110/57 12/09/17 16:00 Pulse Ox 93 L 12/09/17 16:00 Intake & Output 12/09/17 12/09/17 12/10/17 06:59 18:59 07:59 Intake Total 583 50 Output Total 550 500 Balance 33 -450 Weight 155.5 kg Intake: IV 240 0.9 NACL 160 cardizem 80 Intake, IV Titration 43 50 Amount Diltiazem 50 mg In Sodium 43 Chloride 0.9% 40 ml @ 10 MG/HR 10 mls/hr IV .Q5H [facility] Rx#:[id number] Piperacillin-Tazobactam 3 50 .375 gm In Dextrose/Water 1 50ml.bag @ 12.5 mls/hr IVPB Q8HR TIFFANY Rx#: [id number] Oral 300 Output: Urine 550 500 Other: Voiding Method Indwelling Catheter # Voids 1 # Bowel Movements 1 - Exam Obese 67-year-old woman supine resting comfortably in no respiratory distress. Relates she ate some dinner with a great difficulties. HEENT: Anicteric conjunctiva are pink and moist nasal mucosa grossly intact without significant lesions, there is no thrush. Neck: The neck is supple without significant lymphadenopathy or thyromegaly. Lungs: Symmetrical air entry with few basilar crackles but no significant bronchial sounds no dullness or egophony Heart: Irregular with an audible S1 and S2 soft S4 no murmur click or rub is noted PMI was nondisplaced Abdomen: Obese, Positive bowel sounds soft and nontender without palpable masses or organomegaly. There was no guarding or rebound. Extremities: The upper extremities have excellent pulses they are symmetric, no significant petechiae or telangiectasia. No splinter hemorrhages were noted. The lower extremities are free from significant edema. The peripheral pulses were 2+ and symmetric. Neuro: Awake alert oriented to person place and time. There are no acute new gross focal sensory motor deficits. - Labs CBC & Chem 7: 12/09/17 06:14 12/09/17 06:14 Labs: Abnormal Lab Results - Last 24 Hours (Table) 12/09/17 12/09/17 Range/Units 06:14 06:14 WBC 13.0 H (3.8-10.6) k/uL RBC 3.48 L (3.80-5.40) m/uL Hgb 9.8 L (11.4-16.0) gm/dL Hct 32.2 L (34.0-46.0) % MCHC 30.5 L (31.0-37.0) g/dL Neutrophils # 10.5 H (1.3-7.7) k/uL BUN 24 H (7-17) mg/dL Microbiology - Last 24 Hours (Table) 12/08/17 18:16 Blood Culture - Preliminary Blood No Growth after 24 hours 12/08/17 15:00 Blood Culture - Preliminary Blood No Growth after 24 hours Laboratory Results WBC 13.0 k/uL (3.8-10.6) H 12/09/17 06:14 RBC 3.48 m/uL (3.80-5.40) L 12/09/17 06:14 Hgb 9.8 gm/dL (11.4-16.0) L 12/09/17 06:14 Hct 32.2 % (34.0-46.0) L 12/09/17 06:14 MCV 92.6 fL (80.0-100.0) 12/09/17 06:14 MCH 28.3 pg (25.0-35.0) 12/09/17 06:14 MCHC 30.5 g/dL (31.0-37.0) L 12/09/17 06:14 RDW 14.0 % (11.5-15.5) 12/09/17 06:14 Plt Count 255 k/uL (150-450) 12/09/17 06:14 Neutrophils % 81 % 12/09/17 06:14 Lymphocytes % 11 % 12/09/17 06:14 Monocytes % 5 % 12/09/17 06:14 Eosinophils % 1 % 12/09/17 06:14 Basophils % 0 % 12/09/17 06:14 Neutrophils # 10.5 k/uL (1.3-7.7) H 12/09/17 06:14 Lymphocytes # 1.4 k/uL (1.0-4.8) 12/09/17 06:14 Monocytes # 0.6 k/uL (0-1.0) 12/09/17 06:14 Eosinophils # 0.1 k/uL (0-0.7) 12/09/17 06:14 Basophils # 0.0 k/uL (0-0.2) 12/09/17 06:14 Hypochromasia Moderate 12/09/17 06:14 PT 12.3 sec (9.0-12.0) H 12/05/17 14:33 INR 1.3 (<1.2) H 12/05/17 14:33 APTT 29.4 sec (22.0-30.0) 12/05/17 14:33 D-Dimer 2.74 mg/L FEU (<0.60) H 12/06/17 09:03 Sample Site rrad 12/08/17 16:08 ABG pH 7.37 (7.35-7.45) 12/08/17 16:08 ABG pCO2 37 mmHg (35-45) 12/08/17 16:08 ABG pO2 100 mmHg (83-108) 12/08/17 16:08 ABG HCO3 21 mmol/L (21-25) 12/08/17 16:08 ABG Total CO2 23 mmol/L (19-24) 12/08/17 16:08 ABG O2 Saturation 98.0 % (94-97) H 12/08/17 16:08 ABG Base Excess -4.0 mmol/L 12/08/17 16:08 Feng Test Yes 12/08/17 16:08 FiO2 100 % 12/08/17 16:08 Sodium 139 mmol/L (137-145) 12/09/17 06:14 Potassium 4.7 mmol/L (3.5-5.1) 12/09/17 06:14 Chloride 107 mmol/L (98-107) 12/09/17 06:14 Carbon Dioxide 24 mmol/L (22-30) 12/09/17 06:14 Anion Gap 8 mmol/L 12/09/17 06:14 BUN 24 mg/dL (7-17) H 12/09/17 06:14 Creatinine 0.99 mg/dL (0.52-1.04) 12/09/17 06:14 Est GFR (CKD-EPI)AfAm 69 (>60 ml/min/1.73 sqM) 12/09/17 06:14 Est GFR (CKD-EPI)NonAf 60 (>60 ml/min/1.73 sqM) 12/09/17 06:14 Glucose 99 mg/dL (74-99) 12/09/17 06:14 POC Glucose (mg/dL) 98 mg/dL (75-99) 12/06/17 09:10 POC Glu Metal Engraver ID Barbara Lu 12/06/17 09:10 Plasma Lactic Acid [place] 1.6 mmol/L (0.7-2.0) 12/08/17 15:47 Calcium 8.4 mg/dL (8.4-10.2) 12/09/17 06:14 Phosphorus 4.5 mg/dL (2.5-4.5) 12/09/17 06:14 Magnesium 1.9 mg/dL (1.6-2.3) 12/09/17 06:14 Total Bilirubin 1.3 mg/dL (0.2-1.3) 12/08/17 15:47 AST 40 U/L (14-36) H 12/08/17 15:47 ALT 20 U/L (9-52) 12/08/17 15:47 Alkaline Phosphatase 117 U/L (38-126) 12/08/17 15:47 Troponin I <0.012 ng/mL (0.000-0.034) 12/08/17 15:47 Total Protein 6.4 g/dL (6.3-8.2) 12/08/17 15:47 Albumin 2.8 g/dL (3.5-5.0) L 12/08/17 15:47 Urine Color Light Red 12/05/17 14:33 Urine Appearance Cloudy (Clear) H 12/05/17 14:33 Urine pH 5.5 (5.0-8.0) 12/05/17 14:33 Ur Specific [place] 1.012 (1.001-1.035) 12/05/17 14:33 Urine Protein 1+ (Negative) H 12/05/17 14:33 Urine Glucose (UA) Negative (Negative) 12/05/17 14:33 Urine Ketones Negative (Negative) 12/05/17 14:33 Urine Blood Large (Negative) H 12/05/17 14:33 Urine Nitrite Negative (Negative) 12/05/17 14:33 Urine Bilirubin Negative (Negative) 12/05/17 14:33 Urine Urobilinogen 2.0 mg/dL (<2.0) 12/05/17 14:33 Ur Leukocyte Esterase Large (Negative) H 12/05/17 14:33 Urine RBC >182 /hpf (0-5) H 12/05/17 14:33 Urine WBC 162 /hpf (0-5) H 12/05/17 14:33 Urine WBC Clumps Many /hpf (None) H 12/05/17 14:33 Urine Mucus Rare /hpf (None) H 12/05/17 14:33 Influenza Type A RNA Not Detected (Not Detectd) 12/09/17 05:00 Influenza Type B (PCR) Not Detected (Not Detectd) 12/09/17 05:00 Microbiology 12/08/17 18:16 Blood Blood Culture - Preliminary No Growth after 24 hours 12/08/17 15:00 Blood Blood Culture - Preliminary No Growth after 24 hours 12/05/17 14:33 Blood Blood Culture Gram Stain - Final 12/05/17 14:33 Blood Blood Culture - Final Escherichia coli 12/05/17 14:33 Urine,Catheterized Urine Culture - Final 12/05/17 14:33 Blood Blood Culture - Final - Imaging and Cardiology CT scan - abdomen: report reviewed (No evidence of hydronephrosis or of abdominal abscess) Assessment and Plan (1) Urinary tract infection Current Visit: Yes Status: Acute Code(s): N39.0 - URINARY TRACT INFECTION, SITE NOT SPECIFIED SNOMED Code(s): 44652853 (2) Sepsis Current Visit: Yes Status: Acute Code(s): A41.9 - SEPSIS, UNSPECIFIED ORGANISM SNOMED Code(s): 54706888 (3) Atrial fibrillation Current Visit: Yes Status: Acute Code(s): I48.91 - UNSPECIFIED ATRIAL FIBRILLATION SNOMED Code(s): 54975841 (4) E coli bacteremia Narrative/Plan: 67-year-old female presented hospital with significant pain and weakness. She has been without evidence of Escherichia coli sepsis with bacteremia from urinary tract infection. Antibiotic therapy was adjusted to piperacillin tazobactam and per susceptibilities an adequate choice. Yesterday she had a bout of respiratory failure that required transfer to the intensive care unit as well as BiPAP. Atrial fibrillation with a rapid ventricular response was treated with Cardizem and she is feeling considerably better. With transition back to the selective care unit and continues to show some improvement. It is not a computed tomography scan was performed without evidence of hydronephrosis, pyonephritis, or intra-abdominal abscess. She should good response to diuresis, Cardizem and antibiotic therapy. Not currently on BiPAP with just oxygen therapy with some improvement. Influenza testing was performed is negative for A and B. Follow blood cultures are negative so far. Current Visit: Yes Status: Acute Code(s): R78.81 - BACTEREMIA SNOMED Code( s): 500003607363
--- NOTE | 2017-12-09 23:14 | P.PN ---
Subjective Progress Note Date: 12/08/17 Principal diagnosis: Urinary tract infection Patient is a 67-year-old female with a known history of atrial fibrillation on antibiotics in for recently had spinal surgery cervical about a month ago [facility] with complaints of right lower back pain for the past 2 days. Patient says that her legs gave away about 2 days back and fell on her right side. Denies any hitting head. Patient is not able to twist back but says it does hurt more when she flexes her back to a sitting position. Patient denies bowel dysfunction and states she had a bowel movement today. Patient states she has been urinating less and her De La Rosa output is less than normal but unsure of the measurement. Patient took a Percocet about 2 hours ago which has helped her back pain since that time. Patient did have surgery on her thoracic spine on November 16 for spinal stenosis according to the patient. She has been unable to follow up with the surgeon as directed because she cannot walk down the stairs to leave the house. Patient states she is also experiencing burning urine and was diagnosed by [facility] with urinary tract infection. Patient is currently taking Keflex since yesterday.. She has had a de la rosa catheter in place since her surgery on the , and has been unable to follow up with the urologist as well. Patient had urine retention followed by surgery and since then patient is on De La Rosa catheter. Her next appointment for the urologist is on December 14 in [place]. She states she noticed her urine was bloody and she has had fevers and chills and has felt fatigued. Patient denies any shortness of breath, coughing, chest pain, or abdominal pain. Patient does admit to some suprapubic tenderness but denies pain. Patient was found have significant pyuria and the urinalysis. urine culture was sent. EKG showed atrial fibrillation with rapid regular rate Patient was febrile and tachycardic on admission. Patient had lumbar and thoracic spine x-ray was done in the ER. 12/06/2017 Patient became more shortness and hypoxic this morning. Patient was placed on BiPAP machine. Chest x-ray showed mild pulmonary aspirin condition otherwise patient was hypotensive and was started on Levophed. Pulmonary and cardiology has seen the patient. He was also on Cardizem drip for heart rate controlled. No fever today. Antibiotic 7J to Zosyn at this time. ID has been consulted as well. Patient denied any chest pain. No nausea vomiting or abdominal pain. Ultrasound of abdomen showed no hydronephrosis. 12/07/2017 Patient has been febrile today with T-max 103. Otherwise more awake and oriented. Patient is off Cardizem drip and Levophed. Hemodynamically stable. Urine culture showed gram-negative bacilli. No compressive chest pain or shortness of breath. No nausea vomiting or abdominal pain. 12/08/2017 Patient is again febrile this afternoon with T-max 103. Blood cultures showed E. coli. Otherwise urine culture is negative. ID has seen the patient and recommended further septic workup including CT abdomen and pelvis to rule out any source of infection. Otherwise patient is hemodynamically stable. Patient is being transferred to medical floor. Chest x-ray showed correlate for interstitial edema/pulmonary hypertension All other review of systems negative except as above Current medications reviewed. Objective - Vital Signs Vital signs: Vital Signs Temp 98.1 F 12/08/17 20:00 Pulse 97 12/08/17 20:00 Resp 16 12/08/17 20:00 BP 110/62 12/08/17 20:00 Pulse Ox 96 12/08/17 20:00 Intake & Output 12/08/17 12/08/17 12/09/17 06:59 18:59 06:59 Intake Total 860 720 Output Total 350 700 Balance 510 20 Weight 150.5 kg Intake: IV 860 0.9 NACL 60 ACETAMINOPHEN IV (For NPO 800 ) 1,000 mg In Empty Bag 1 bag @ 400 mls/hr IVPB ONCE STA Rx#:[id number] Oral 720 Output: Urine 350 700 - Exam Patient is lying in the bed comfortably, no acute distress, awake alert and oriented. Morbid obesity. HEENT: Normocephalic. Neck is supple. Pupils reactive. Nostrils clear. Oral cavity is moist. Ears reveal no drainage. Cervical spine surgical scar is intact. Neck reveals no JVD, carotid bruits, or thyromegaly. CHEST EXAMINATION: Trachea is central. Symmetrical expansion. Bilateral diminished air entry CARDIAC: Normal S1, S2 with no gallops. No murmurs irregularly irregular pulse ABDOMEN: Soft. Bowel sounds normal. No organomegaly. No abdominal bruits. Extremities: 1+ edema. No clubbing or cyanosis Neurologically awake, alert, oriented x3 with well-coordinated movements. No focal deficits noted Skin: No rash or skin lesions. Psychiatric: Cooperative. Nonsuicidal Musculoskeletal: No joint swelling or deformity. Normal range of motion. - Labs CBC & Chem 7: 12/09/17 06:14 12/09/17 06:14 Labs: Abnormal Lab Results - Last 24 Hours (Table) 12/08/17 12/08/17 12/08/17 Range/Units 05:22 05:22 15:47 WBC 11.1 H (3.8-10.6) k/uL RBC 3.40 L (3.80-5.40) m/uL Hgb 9.5 L (11.4-16.0) gm/dL Hct 31.7 L (34.0-46.0) % MCHC 30.0 L (31.0-37.0) g/dL Neutrophils # 8.7 H (1.3-7.7) k/uL ABG O2 Saturation (94-97) % Potassium 6.3 H* (3.5-5.1) mmol/L Chloride 108 H (98-107) mmol/L Carbon Dioxide 20 L (22-30) mmol/L BUN 22 H 24 H (7-17) mg/dL Creatinine 1.10 H (0.52-1.04) mg/dL Glucose 100 H 102 H (74-99) mg/dL AST 40 H (14-36) U/L Albumin 2.8 L (3.5-5.0) g/dL 12/08/17 12/08/17 Range/Units 16:08 16:27 WBC 12.1 H (3.8-10.6) k/uL RBC 3.73 L (3.80-5.40) m/uL Hgb 10.8 L (11.4-16.0) gm/dL Hct (34.0-46.0) % MCHC (31.0-37.0) g/dL Neutrophils # (1.3-7.7) k/uL ABG O2 Saturation 98.0 H (94-97) % Potassium (3.5-5.1) mmol/L Chloride (98-107) mmol/L Carbon Dioxide (22-30) mmol/L BUN (7-17) mg/dL Creatinine (0.52-1.04) mg/dL Glucose (74-99) mg/dL AST (14-36) U/L Albumin (3.5-5.0) g/dL Microbiology - Last 24 Hours (Table) 12/05/17 14:33 Blood Culture Gram Stain - Final Blood Blood Culture - Final Escherichia coli Assessment and Plan Assessment: Acute hypoxic respiratory failure secondary to sepsis and mild CHF requiring BiPAP. Resolved now. Mild acute CHF with systolic. ejection fraction 45-50% Sepsis secondary to acute urinary tract infection. Complicated with De La Rosa catheter. E. coli septicemia Urinary tract infections related to indwelling De La Rosa catheter Hematuria likely due to UTI. Resolved. Follow-up H&H. Stable Status post mechanical fall due to legs gave away Atrial fibrillation with rapid ventricular rate. Off Cardizem drip History of AICD placement Recent cervical spine surgery about a month back Urine retention. On De La Rosa catheter since surgery in November 2017 Morbid obesity with BMI 51.5 Hypotension on admission due to sepsis and pain medications as well as rapid ventricular rate Osteoarthritis Plan: Antibiotics have been changed to Zosyn at this time. Ultrasound kidneys showed no hydronephrosis. Patient is off BiPAP and Levophed. Continue with IV fluids 2-D echocardiogram showed normal EF. Urology, ID, pulmonary and cardiology is following. Urine culture showed no growth. Blood cultures showed E. coli. Repeat blood cultures are negative. continue with the metoprolol and started back on anticoagulation. Monitor H&H. Further recommendations based on the clinical course. We will continue to follow closely. Time with Patient: Greater than 30
--- NOTE | 2017-12-09 23:19 | P.PN ---
Subjective Progress Note Date: 12/09/17 Principal diagnosis: Urinary tract infection Patient is a 67-year-old female with a known history of atrial fibrillation on antibiotics in for recently had spinal surgery cervical about a month ago [facility] with complaints of right lower back pain for the past 2 days. Patient says that her legs gave away about 2 days back and fell on her right side. Denies any hitting head. Patient is not able to twist back but says it does hurt more when she flexes her back to a sitting position. Patient denies bowel dysfunction and states she had a bowel movement today. Patient states she has been urinating less and her De La Rosa output is less than normal but unsure of the measurement. Patient took a Percocet about 2 hours ago which has helped her back pain since that time. Patient did have surgery on her thoracic spine on November 16 for spinal stenosis according to the patient. She has been unable to follow up with the surgeon as directed because she cannot walk down the stairs to leave the house. Patient states she is also experiencing burning urine and was diagnosed by [facility] with urinary tract infection. Patient is currently taking Keflex since yesterday.. She has had a de la rosa catheter in place since her surgery on the , and has been unable to follow up with the urologist as well. Patient had urine retention followed by surgery and since then patient is on De La Rosa catheter. Her next appointment for the urologist is on December 14 in [place]. She states she noticed her urine was bloody and she has had fevers and chills and has felt fatigued. Patient denies any shortness of breath, coughing, chest pain, or abdominal pain. Patient does admit to some suprapubic tenderness but denies pain. Patient was found have significant pyuria and the urinalysis. urine culture was sent. EKG showed atrial fibrillation with rapid regular rate Patient was febrile and tachycardic on admission. Patient had lumbar and thoracic spine x-ray was done in the ER. 12/06/2017 Patient became more shortness and hypoxic this morning. Patient was placed on BiPAP machine. Chest x-ray showed mild pulmonary aspirin condition otherwise patient was hypotensive and was started on Levophed. Pulmonary and cardiology has seen the patient. He was also on Cardizem drip for heart rate controlled. No fever today. Antibiotic 7J to Zosyn at this time. ID has been consulted as well. Patient denied any chest pain. No nausea vomiting or abdominal pain. Ultrasound of abdomen showed no hydronephrosis. 12/07/2017 Patient has been febrile today with T-max 103. Otherwise more awake and oriented. Patient is off Cardizem drip and Levophed. Hemodynamically stable. Urine culture showed gram-negative bacilli. No compressive chest pain or shortness of breath. No nausea vomiting or abdominal pain. 12/08/2017 Patient is again febrile this afternoon with T-max 103. Blood cultures showed E. coli. Otherwise urine culture is negative. ID has seen the patient and recommended further septic workup including CT abdomen and pelvis to rule out any source of infection. Otherwise patient is hemodynamically stable. Patient is being transferred to medical floor. Chest x-ray showed correlate for interstitial edema/pulmonary hypertension. 12/09/2017 Patient has been afebrile since yesterday. No complaints of chest pain or shortness of breath. Patient seems clinically much improved. No complaints of nausea vomiting or abdominal pain CT abdomen and pelvis showed no septic foci identified. Chronic degenerative and scoliosis changes were noted. All other review of systems negative except as above Current medications reviewed. Objective - Vital Signs Vital signs: Vital Signs Temp 98.2 F 12/09/17 16:00 Pulse 85 12/09/17 16:00 Resp 18 12/09/17 16:00 BP 110/57 12/09/17 16:00 Pulse Ox 93 L 12/09/17 16:00 Intake & Output 12/09/17 12/09/17 12/10/17 06:59 18:59 07:59 Intake Total 583 50 Output Total 550 500 Balance 33 -450 Weight 155.5 kg Intake: IV 240 0.9 NACL 160 cardizem 80 Intake, IV Titration 43 50 Amount Diltiazem 50 mg In Sodium 43 Chloride 0.9% 40 ml @ 10 MG/HR 10 mls/hr IV .Q5H TIFFANY Rx#:[id number] Piperacillin-Tazobactam 3 50 .375 gm In Dextrose/Water 1 50ml.bag @ 12.5 mls/hr IVPB Q8HR TIFFANY Rx#: [id number] Oral 300 Output: Urine 550 500 Other: Voiding Method Indwelling Catheter # Voids 1 # Bowel Movements 1 - Exam Patient is lying in the bed comfortably, no acute distress, awake alert and oriented. Morbid obesity. HEENT: Normocephalic. Neck is supple. Pupils reactive. Nostrils clear. Oral cavity is moist. Ears reveal no drainage. Cervical spine surgical scar is intact. Neck reveals no JVD, carotid bruits, or thyromegaly. CHEST EXAMINATION: Trachea is central. Symmetrical expansion. Bilateral diminished air entry CARDIAC: Normal S1, S2 with no gallops. No murmurs irregularly irregular pulse ABDOMEN: Soft. Bowel sounds normal. No organomegaly. No abdominal bruits. Extremities: 1+ edema. No clubbing or cyanosis Neurologically awake, alert, oriented x3 with well-coordinated movements. No focal deficits noted Skin: No rash or skin lesions. Psychiatric: Cooperative. Nonsuicidal Musculoskeletal: No joint swelling or deformity. Normal range of motion. - Labs CBC & Chem 7: 12/09/17 06:14 12/09/17 06:14 Labs: Abnormal Lab Results - Last 24 Hours (Table) 12/09/17 12/09/17 Range/Units 06:14 06:14 WBC 13.0 H (3.8-10.6) k/uL RBC 3.48 L (3.80-5.40) m/uL Hgb 9.8 L (11.4-16.0) gm/dL Hct 32.2 L (34.0-46.0) % MCHC 30.5 L (31.0-37.0) g/dL Neutrophils # 10.5 H (1.3-7.7) k/uL BUN 24 H (7-17) mg/dL Microbiology - Last 24 Hours (Table) 12/08/17 18:16 Blood Culture - Preliminary Blood No Growth after 24 hours 12/08/17 15:00 Blood Culture - Preliminary Blood No Growth after 24 hours Assessment and Plan Assessment: Acute hypoxic respiratory failure secondary to sepsis and mild CHF requiring BiPAP. Resolved now. Mild acute CHF with systolic. ejection fraction 45-50% Sepsis secondary to acute urinary tract infection. Complicated with De La Rosa catheter. E. coli septicemia Urinary tract infections related to indwelling De La Rosa catheter Hematuria likely due to UTI. Resolved. Follow-up H&H. Stable Status post mechanical fall due to legs gave away Atrial fibrillation with rapid ventricular rate. Off Cardizem drip History of AICD placement Recent cervical spine surgery about a month back Urine retention. On De La Rosa catheter since surgery in November 2017 Morbid obesity with BMI 51.5 Hypotension on admission due to sepsis and pain medications as well as rapid ventricular rate Osteoarthritis Plan: Antibiotics have been changed to Zosyn at this time. Ultrasound kidneys showed no hydronephrosis. Patient is off BiPAP and Levophed. Continue with IV fluids 2-D echocardiogram showed normal EF. Urology, ID, pulmonary and cardiology is following. Urine culture showed no growth. Blood cultures showed E. coli. Repeat blood cultures are negative. continue with the metoprolol and started back on anticoagulation. Monitor H&H. Further recommendations based on the clinical course. We will continue to follow closely. Time with Patient: Greater than 30
[2017-12-10] MEDS: PIPERACILLIN-TAZOBACTAM 3.375 GM in DEXTROSE/WATER 1 50ML.BAG IVPB SCH ×3 (00:57→18:53)
[2017-12-10] MEDS: VANCOMYCIN 2,500 MG in SODIUM CHLORIDE 0.9% 500 ML IVPB SCH ×2 (03:11→14:20)
[2017-12-10] MEDS: CARVEDILOL 6.25 MG TAB PO SCH ×2 (05:59→16:28)
[2017-12-10] MEDS: oxyCODONE-APAP 5-325MG 1 EACH TAB PO PRN ×2 (05:59→21:03)
[2017-12-10 07:32] LABS: Basophils % (A) 0 %; Eosinophils # (A) 0.2 k/uL (0-0.7); Eosinophils % (A) 2 %; HCT 32.5 % (34.0-46.0); HGB 9.8 gm/dL (11.4-16.0); Hypochromasia Moderate; Lymphocytes # (A) 1.3 k/uL (1.0-4.8); Lymphocytes % (A) 12 %; MCH 27.8 pg (25.0-35.0); MCHC 30.2 g/dL (31.0-37.0); MCV 92.3 fL (80.0-100.0); Mean Platelet Volume 7.5; Monocytes # (A) 0.5 k/uL (0-1.0); Monocytes % (A) 5 %; Neutrophils # (A) 9.1 k/uL (1.3-7.7); Neutrophils % (A) 79 %; Platelet Count 246 k/uL (150-450); RBC 3.52 m/uL (3.80-5.40); WBC 11.5 k/uL (3.8-10.6)
[2017-12-10] MEDS: DILTIAZEM ORAL 60 MG TAB PO SCH ×4 (08:54→22:57)
[2017-12-10] MEDS: FAMOTIDINE 20 MG TAB PO SCH (08:55)
[2017-12-10] MEDS: ZINC SULFATE 220 MG CAP PO SCH (08:55)
[2017-12-10] MEDS: DOCUSATE 100 MG CAP PO SCH (08:55)
[2017-12-10] MEDS: ACETAMINOPHEN TAB 325 MG TAB PO PRN ×2 (08:59→16:27)
[2017-12-10] MEDS ORDERED: VANCOMYCIN 2,000 MG in SODIUM CHLORIDE 0.9% 500 ML IVPB SCH (13:00)
--- NOTE | 2017-12-10 15:39 | P.PN ---
Subjective Progress Note Date: 12/10/17 Acute hypoxic respiratory failure secondary to acute sepsis related to acute urinary tract infection Viola is a 67-year-old white female patient of Dr. Combs, who presented to the emergency department on 12/05/2017 at 1352 with complaints of lower back pain, weakness in bilateral lower extremities, gait dysfunction, a fall at home occurring 2 days ago. Patient complained of decreased urinary output from her indwelling catheter. Patient had a recent thoracic spine surgery on 11/16/2017 for spinal stenosis and has had the Francois catheter since the surgery. She was being followed by a visiting nurse at home. She also noted hematuria, and was having fever and chills and overall generalized fatigue. She denies any shortness of breath, denies any chest pain, denies any chest congestion and sputum production. Denies any abdominal pain. Was having suprapubic tenderness on admission, which is not present now. EKG showed atrial fibrillation with rapid ventricular rate, patient was febrile and tachycardic on admission, temp was 100.5F, and a heart rate was ranging from 113-122 BPM. Lumbar x-ray shows scoliosis with multilevel degenerative severe disc disease, mild superior endplate compression deformity of L3 of indeterminate age. Thoracic spine x-ray was taken and showed C3-C4 posterior thoracic fusion hardware. Urinalysis showed significant pyuria and bacteriuria. Patient was started on Rocephin, IV 0.9 was infusing at 100 ML per hour. This morning of rapid response team was called in regards to patient's experiencing severe respiratory distress, fevers, chills. Patient was placed on BiPAP support, and was transferred to the intensive care. Chest x-ray showed mild cardiomegaly and interstitial prominence, AICD was noted. Patient's other medical history includes obstructive sleep apnea, cardiomyopathy, status post AICD placement, osteoarthritis, hypertension, obesity, chronic atrial fibrillation, arthritis. Lactic acid on admission was 1.0, on admission to ICU was 1.5. Patient is maintaining normal blood pressures, no hypotension at this time. Blood gas showed pH is 7.42, pCO2 32, pO2 of 353, this was done and FiO2 of 100%. Sepsis protocol has been initiated, blood cultures urine cultures have been ordered and sent. And are pending at this time. Ultrasound of the kidney showed no evident hydronephrosis. At the time of evaluation patient is seen on BiPAP support, fairly comfortable, is awake alert, and able to respond appropriately. FiO2 was decreased down to 45%. Continue IV fluids at a rate of 100 ML per hour. On 12/07/2017 patient seen in follow-up in intensive care unit. She did not require BiPAP last night. Norepinephrine drip was discontinued this morning at 8:00. No febrile episodes since yesterday on 12/06/2017 at 10 AM with the T- max of 103.1F. One low-grade fever with a temp of 99.9F at 4:00 this morning. Patient's urine still positive for some sediment, lightly cloudy, but improving. Urine output is ranging from 30-80 ML per hour. Lung sounds are positive for a few faint wheezes at the bases, no rales or rhonchi noted. Patient remains on 2 L per nasal cannula with O2 sat 96%. Hemodynamically stable. Remains slightly tachycardic, remains in A. fib, with a heart rate ranging between 98-108 BPM. We will try to set restart Coreg today at 6.25 mg twice a day. Cardizem drip has been discontinued last night. 0.9 is infusing at a rate of 100 ML per hour, yesterday patient received 2 L of 0.9 normal saline fluid bolus. She is developing worsening bilateral lower extremity edema , she is tolerating oral intake, we will decrease the IV rate of maintenance fluids to 20 ML per hour. Today's lab work showed a CBC of 15.2, hemoglobin is 10.4, sodium is 137, potassium is 4.8, BUN is 19, creatinine 0.90. Urine culture from 12/02/2017 was positive for E. coli, blood culture from 12/05/2017 was positive for gram-negative bacilli. Urine culture from 12/05/2017 showed no growth. On 12/08/2017 the patient was seen in follow-up in the medical floor. The patient is on a telemetry unit. Noted the patient was admitted intensive care for E. coli urine checked infection and sepsis. The patient was hypotensive. The patient was was resuscitated. Patient was taken off norepinephrine and she was transferred to the floor on a stable condition. Her atrial fibrillation was also under good control. Note that I talked to the nurses and she was doing well and around hour ago the patient became acutely ill, cold and then subsequently hot and warm and then she spiked a temperature of 102. She started having tremors. She started getting tachypneic and tachycardic and short of breath. During this time, the patient had a heart rate of 120 to 1: 30. The blood pressure was okay, and she was running a lower blood pressure that was 81/65 at around 9:00 and 93/67 at around noontime and later on during this episode the patient's blood pressure even went up higher. She became hypoxic however and on 5 L of oxygen nasal cannula her pulse ox dropped down to 83%. She was placed on 100% nonrebreather facemask. Producing urine output. At that point, the patient was given IV Tylenol. A stat blood gases were obtained and showed a pH of 7.37 with a pCO2 of 37 and pO2 100 on the percent nonrebreather facemask. The patient was given 500 mL of IV bolus. The patient had stat blood work that showed a white cell count of 12.1 and the rest of the electrodes are still pending for now. Note that that morning potassium was at 6.3 and the sample was slightly hemolyzed. Her renal function was within normal limits. The patient was taken off Cardizem drip. I ordered to restart Cardizem drip at 10 mg an hour. The patient is on IV Zosyn regarding the E. coli urine checked infection and sepsis. The patient is on Xarelto as long- term and coagulation regarding atrial fibrillation. As such possibility of pulmonary embolism is felt to be less likely. The chest x-ray was also obtained emergent basis and showed some pulmonary vascular congestion. The film itself was rotated and was suboptimal. Lung volumes were all low. The patient herself became lethargic and she was still following commands and answering questions appropriately. On 12/09/2017, the patient is being seen for a follow-up. Much improved compared to yesterday. No bright GERD or chills. Hemodynamically stable. The blood culture was positive for E. coli. The patient is currently on IV Zosyn. She is doing well. She is afebrile. Francois catheter in place. She is producing adequate amount of urine output. She is still negative fibrillation rate is controlled and the patient is currently off the Cardizem drip. No nausea. No vomiting. No abdominal pain. She is complaining of lower back pain as the patient had fallen. Surgical wound site over the upper back area is clean. No altered mentation. is at the bedside. Patient remained on anticoagulation with Xarelto regarding her chronic atrial fibrillation. She is tolerating her diet. She is morbidly obese. She is weak. Somewhat debilitated. May benefit from rehabilitation. On 12/10/2017, the patient is being seen for a follow-up. She is doing well. No fever or chills. Producing adequate amount of urine output. Start a combination of Zosyn and vancomycin. No nausea. No vomiting. No abdominal pain. She is having some chronic lower back pain. She is interested in becoming more active down the road. CAT scan of the abdomen was completed and the patient was not found to have any acute abnormalities. The lung bases showed small effusion and atelectasis. The gallbladder was distended without any inflammation. There was small amount of ascites. And there was also mild to moderate perinephric fat stranding, nonspecific suggestive of chronic medical renal disease. There was some prominence of the posterior retroperitoneal fat. The Francois catheter wasn't placed and the bladder was well deflated. The patient was also found to have some scoliosis and multilevel chronic degenerative changes of the lumbar spine. Objective - Vital Signs Vital signs: Vital Signs Temp 98.3 F 12/10/17 11:50 Pulse 90 12/10/17 11:50 Resp 16 12/10/17 11:50 BP 97/62 12/10/17 11:50 Pulse Ox 97 12/10/17 11:50 Intake & Output 12/09/17 12/10/17 12/10/17 17:59 06:59 18:59 Intake Total 240 Output Total 1050 Balance -810 Weight Intake: IV 0.9 NACL cardizem zosyn Intake, IV Titration Amount Piperacillin-Tazobactam 3 .375 gm In Dextrose/Water 1 50ml.bag @ 12.5 mls/hr IVPB Q8HR [facility] Rx#: [id number] Oral 240 Lipid cardizem Output: Urine 1050 Other: Voiding Method # Voids # Bowel Movements 1 - Exam GENERAL EXAM: Patient is calm and comfortable and awake and alert and she is following commands and answering questions appropriately. No altered mentation. No tachycardia or tachypnea respiratory distress with this on today' s evaluation. HEAD: Normocephalic/atraumatic. EYES: Normal reaction of pupils, equal size. Conjunctiva pink, sclera white. NOSE: Clear with pink turbinates. THROAT: No erythema or exudates. NECK: No masses, no JVD, no thyroid enlargement, no adenopathy. CHEST: No chest wall deformity. Symmetrical expansion. LUNGS: Equal air entry with no crackles, wheeze, a few scattered rhonchi, faint wheezes at bilateral bases noted. CVS: Irregular rhythm and rate and the patient is somewhat tachycardic , normal S1 and S2, no gallops, no murmurs, no rubs ABDOMEN: Soft, nontender. No hepatosplenomegaly, normal bowel sounds, no guarding or rigidity. EXTREMITIES: No clubbing, 2+ nonpitting edema in bilateral lower extremities noted, no cyanosis, 2+ pulses and upper and lower extremities. MUSCULOSKELETAL: Muscle strength and tone normal. SPINE: No scoliosis or deformity SKIN: No rashes CENTRAL NERVOUS SYSTEM: Alert and oriented -3. No focal deficits, tone is normal in all 4 extremities. PSYCHIATRIC: Alert and oriented -3. Appropriate affect. Intact judgment and insight. - Labs CBC & Chem 7: 12/10/17 07:08 12/09/17 06:14 Labs: Abnormal Lab Results - Last 24 Hours (Table) 12/10/17 Range/Units 07:08 WBC 11.5 H (3.8-10.6) k/uL RBC 3.52 L (3.80-5.40) m/uL Hgb 9.8 L (11.4-16.0) gm/dL Hct 32.5 L (34.0-46.0) % MCHC 30.2 L (31.0-37.0) g/dL Neutrophils # 9.1 H (1.3-7.7) k/uL Microbiology - Last 24 Hours (Table) 12/08/17 18:16 Blood Culture - Preliminary Blood No Growth after 24 hours 12/08/17 15:00 Blood Culture - Preliminary Blood No Growth after 24 hours Assessment and Plan Plan: Assessment: #1. Sepsis secondary to urinary tract infection. The patient is confirmed to have E. coli septicemia. The bacteremia has cleared on subsequent blood cultures from 12/08/2017 was negative and the patient remains on IV Zosyn. #2. Acute worsening shortness of breath/hypoxemia likely secondary to above. The patient shortness of breath is improved and she is back to her baseline. #3. Atrial fibrillation with rapid ventricular response, recovered and the patient is currently off the Cardizem drip and she is back on Coreg 6.25 mg by mouth twice a day #4. Interstitial prominence, cardiomegaly consistent with mild systolic CHF #5. Cardiomyopathy, status post AICD placement, EF is 45-50% #6. Obstructive sleep apnea, with baseline AHI of 23 #7. Hypertension #8. Obesity #9. Recent thoracic spine surgery for spinal stenosis on November 2017 #10. Chronic indwelling catheter for urinary retention post thoracic spine surgery #11. Osteoarthritis #12. Elevated d-dimer, nonspecific Plan Continue IV Zosyn. Discontinue the vancomycin. The CAT scan of the abdomen and pelvis was noted. May consider removing the Francois at a later stage. Overall condition is stable. Encourage physical therapy. We'll continue to follow.
[2017-12-10] MEDS: RIVAROXABAN 20 MG TAB PO SCH (16:28)
[2017-12-10] MEDS: SODIUM CHLORIDE 0.9% 1,000 ML IV SCH (19:44)
[2017-12-11] MEDS: PIPERACILLIN-TAZOBACTAM 3.375 GM in DEXTROSE/WATER 1 50ML.BAG IVPB SCH ×3 (04:27→15:50)
[2017-12-11] MEDS: ACETAMINOPHEN TAB 325 MG TAB PO PRN ×2 (04:30→15:53)
[2017-12-11 06:19] LABS: Basophils # (A) 0.1 k/uL (0-0.2); Basophils % (A) 1 %; Eosinophils # (A) 0.2 k/uL (0-0.7); Eosinophils % (A) 2 %; HGB 10.4 gm/dL (11.4-16.0); Hypochromasia Slight; Lymphocytes # (A) 1.2 k/uL (1.0-4.8); Lymphocytes % (A) 10 %; MCH 28.7 pg (25.0-35.0); MCHC 31.6 g/dL (31.0-37.0); MCV 91.1 fL (80.0-100.0); Mean Platelet Volume 7.1; Monocytes # (A) 0.5 k/uL (0-1.0); Monocytes % (A) 4 %; Neutrophils # (A) 10.2 k/uL (1.3-7.7); Neutrophils % (A) 81 %; Platelet Count 288 k/uL (150-450); RBC 3.63 m/uL (3.80-5.40); RDW 13.7 % (11.5-15.5); WBC 12.6 k/uL (3.8-10.6)
[2017-12-11 06:45] LABS: Calcium 8.6 mg/dL (8.4-10.2); Potassium 4.4 mmol/L (3.5-5.1)
[2017-12-11] MEDS: CARVEDILOL 6.25 MG TAB PO SCH ×2 (06:46→18:10)
[2017-12-11] MEDS: DILTIAZEM ORAL 60 MG TAB PO SCH ×4 (08:26→21:30)
[2017-12-11] MEDS: ZINC SULFATE 220 MG CAP PO SCH (08:27)
[2017-12-11] MEDS: DOCUSATE 100 MG CAP PO SCH (08:27)
[2017-12-11] MEDS: FAMOTIDINE 20 MG TAB PO SCH (08:27)
[2017-12-11] MEDS: oxyCODONE-APAP 5-325MG 1 EACH TAB PO PRN ×2 (10:13→21:56)
[2017-12-11] MEDS ORDERED: VANCOMYCIN 2,500 MG in SODIUM CHLORIDE 0.9% 500 ML IVPB SCH (13:00)
[2017-12-11] MEDS ORDERED: VANCOMYCIN 2,000 MG in SODIUM CHLORIDE 0.9% 500 ML IVPB SCH (13:00)
--- NOTE | 2017-12-11 14:12 | XR ---
EXAMINATION TYPE: XR chest 1V DATE OF EXAM: 12/11/2017 COMPARISON: 12/08/2017 HISTORY: 67 year-old female shortness of breath TECHNIQUE: Single frontal view of the chest is obtained. FINDINGS: Posterior thoracic fusion hardware upper thoracic spine. Left anterior chest wall ICD generator with right atrial and right ventricular leads. Heart remains mildly enlarged. Diffuse interstitial promine nce shows improvement from prior. No significant pleural effusion. Aeration is overall improved. IMPRESSION: Cardiomegaly with overall improved aeration from prior. There may be mild residual pulmonary vascular congestion.
--- NOTE | 2017-12-11 14:39 | P.PN ---
Subjective Progress Note Date: 12/11/17 Principal diagnosis: Acute gram-negative sepsis secondary to urinary tract infection Viola is a 67-year-old white female patient of Dr. Combs, who presented to the emergency department on 12/05/2017 at 1352 with complaints of lower back pain, weakness in bilateral lower extremities, gait dysfunction, a fall at home occurring 2 days ago. Patient complained of decreased urinary output from her indwelling catheter. Patient had a recent thoracic spine surgery on 11/16/2017 for spinal stenosis and has had the Francois catheter since the surgery. She was being followed by a visiting nurse at home. She also noted hematuria, and was having fever and chills and overall generalized fatigue. She denies any shortness of breath, denies any chest pain, denies any chest congestion and sputum production. Denies any abdominal pain. Was having suprapubic tenderness on admission, which is not present now. EKG showed atrial fibrillation with rapid ventricular rate, patient was febrile and tachycardic on admission, temp was 100.5F, and a heart rate was ranging from 113-122 BPM. Lumbar x-ray shows scoliosis with multilevel degenerative severe disc disease, mild superior endplate compression deformity of L3 of indeterminate age. Thoracic spine x-ray was taken and showed C3-C4 posterior thoracic fusion hardware. Urinalysis showed significant pyuria and bacteriuria. Patient was started on Rocephin, IV 0.9 was infusing at 100 ML per hour. This morning of rapid response team was called in regards to patient's experiencing severe respiratory distress, fevers, chills. Patient was placed on BiPAP support, and was transferred to the intensive care. Chest x-ray showed mild cardiomegaly and interstitial prominence, AICD was noted. Patient's other medical history includes obstructive sleep apnea, cardiomyopathy, status post AICD placement, osteoarthritis, hypertension, obesity, chronic atrial fibrillation, arthritis. Lactic acid on admission was 1.0, on admission to ICU was 1.5. Patient is maintaining normal blood pressures, no hypotension at this time. Blood gas showed pH is 7.42, pCO2 32, pO2 of 353, this was done and FiO2 of 100%. Sepsis protocol has been initiated, blood cultures urine cultures have been ordered and sent. And are pending at this time. Ultrasound of the kidney showed no evident hydronephrosis. At the time of evaluation patient is seen on BiPAP support, fairly comfortable, is awake alert, and able to respond appropriately. FiO2 was decreased down to 45%. Continue IV fluids at a rate of 100 ML per hour. On 12/07/2017 patient seen in follow-up in intensive care unit. She did not require BiPAP last night. Norepinephrine drip was discontinued this morning at 8:00. No febrile episodes since yesterday on 12/06/2017 at 10 AM with the T- max of 103.1F. One low-grade fever with a temp of 99.9F at 4:00 this morning. Patient's urine still positive for some sediment, lightly cloudy, but improving. Urine output is ranging from 30-80 ML per hour. Lung sounds are positive for a few faint wheezes at the bases, no rales or rhonchi noted. Patient remains on 2 L per nasal cannula with O2 sat 96%. Hemodynamically stable. Remains slightly tachycardic, remains in A. fib, with a heart rate ranging between 98-108 BPM. We will try to set restart Coreg today at 6.25 mg twice a day. Cardizem drip has been discontinued last night. 0.9 is infusing at a rate of 100 ML per hour, yesterday patient received 2 L of 0.9 normal saline fluid bolus. She is developing worsening bilateral lower extremity edema , she is tolerating oral intake, we will decrease the IV rate of maintenance fluids to 20 ML per hour. Today's lab work showed a CBC of 15.2, hemoglobin is 10.4, sodium is 137, potassium is 4.8, BUN is 19, creatinine 0.90. Urine culture from 12/02/2017 was positive for E. coli, blood culture from 12/05/2017 was positive for gram-negative bacilli. Urine culture from 12/05/2017 showed no growth. On 12/08/2017 the patient was seen in follow-up in the medical floor. The patient is on a telemetry unit. Noted the patient was admitted intensive care for E. coli urine checked infection and sepsis. The patient was hypotensive. The patient was was resuscitated. Patient was taken off norepinephrine and she was transferred to the floor on a stable condition. Her atrial fibrillation was also under good control. Note that I talked to the nurses and she was doing well and around hour ago the patient became acutely ill, cold and then subsequently hot and warm and then she spiked a temperature of 102. She started having tremors. She started getting tachypneic and tachycardic and short of breath. During this time, the patient had a heart rate of 120 to 1: 30. The blood pressure was okay, and she was running a lower blood pressure that was 81/65 at around 9:00 and 93/67 at around noontime and later on during this episode the patient's blood pressure even went up higher. She became hypoxic however and on 5 L of oxygen nasal cannula her pulse ox dropped down to 83%. She was placed on 100% nonrebreather facemask. Producing urine output. At that point, the patient was given IV Tylenol. A stat blood gases were obtained and showed a pH of 7.37 with a pCO2 of 37 and pO2 100 on the percent nonrebreather facemask. The patient was given 500 mL of IV bolus. The patient had stat blood work that showed a white cell count of 12.1 and the rest of the electrodes are still pending for now. Note that that morning potassium was at 6.3 and the sample was slightly hemolyzed. Her renal function was within normal limits. The patient was taken off Cardizem drip. I ordered to restart Cardizem drip at 10 mg an hour. The patient is on IV Zosyn regarding the E. coli urine checked infection and sepsis. The patient is on Xarelto as long- term and coagulation regarding atrial fibrillation. As such possibility of pulmonary embolism is felt to be less likely. The chest x-ray was also obtained emergent basis and showed some pulmonary vascular congestion. The film itself was rotated and was suboptimal. Lung volumes were all low. The patient herself became lethargic and she was still following commands and answering questions appropriately. On 12/09/2017, the patient is being seen for a follow-up. Much improved compared to yesterday. No bright GERD or chills. Hemodynamically stable. The blood culture was positive for E. coli. The patient is currently on IV Zosyn. She is doing well. She is afebrile. Francois catheter in place. She is producing adequate amount of urine output. She is still negative fibrillation rate is controlled and the patient is currently off the Cardizem drip. No nausea. No vomiting. No abdominal pain. She is complaining of lower back pain as the patient had fallen. Surgical wound site over the upper back area is clean. No altered mentation. is at the bedside. Patient remained on anticoagulation with Xarelto regarding her chronic atrial fibrillation. She is tolerating her diet. She is morbidly obese. She is weak. Somewhat debilitated. May benefit from rehabilitation. On 12/10/2017, the patient is being seen for a follow-up. She is doing well. No fever or chills. Producing adequate amount of urine output. Start a combination of Zosyn and vancomycin. No nausea. No vomiting. No abdominal pain. She is having some chronic lower back pain. She is interested in becoming more active down the road. CAT scan of the abdomen was completed and the patient was not found to have any acute abnormalities. The lung bases showed small effusion and atelectasis. The gallbladder was distended without any inflammation. There was small amount of ascites. And there was also mild to moderate perinephric fat stranding, nonspecific suggestive of chronic medical renal disease. There was some prominence of the posterior retroperitoneal fat. The Francois catheter wasn't placed and the bladder was well deflated. The patient was also found to have some scoliosis and multilevel chronic degenerative changes of the lumbar spine. Patient was reevaluated today on 12/11/2017, doing quite well, relatively asymptomatic. Good urine output, remains on antibiotics including Zosyn and vancomycin. No cough no wheezing no shortness of breath, continues to have chronic back pain, she had previous lumbar surgery at [facility]. Labs were reviewed WBC count is 10.6 hemoglobin is 10.4 electrolytes are normal renal profile is normal. Objective - Vital Signs Vital signs: Vital Signs Temp 98.1 F 12/11/17 08:10 Pulse 82 12/11/17 08:10 Resp 20 12/11/17 08:10 BP 105/56 12/11/17 08:10 Pulse Ox 93 L 12/11/17 08:10 Intake & Output 12/10/17 12/11/17 12/11/17 18:59 06:59 18:59 Intake Total 360 600 360 Output Total 2150 1100 500 Balance -1790 -500 -140 Weight 150 kg Intake: Oral 360 600 360 Output: Urine 2150 1100 500 Other: Voiding Method Indwelling Catheter # Voids 1 0 # Bowel Movements 1 1 - Exam GENERAL EXAM: Patient is calm and comfortable and awake and alert and she is following commands and answering questions appropriately. No altered mentation. No tachycardia or tachypnea respiratory distress with this on today' s evaluation. HEAD: Normocephalic/atraumatic. EYES: Normal reaction of pupils, equal size. Conjunctiva pink, sclera white. NOSE: Clear with pink turbinates. THROAT: No erythema or exudates. NECK: No masses, no JVD, no thyroid enlargement, no adenopathy. CHEST: No chest wall deformity. Symmetrical expansion. LUNGS: Equal air entry with no crackles, wheeze, a few scattered rhonchi, faint wheezes at bilateral bases noted. CVS: Irregular rhythm and rate and the patient is somewhat tachycardic , normal S1 and S2, no gallops, no murmurs, no rubs ABDOMEN: Soft, nontender. No hepatosplenomegaly, normal bowel sounds, no guarding or rigidity. EXTREMITIES: No clubbing, 2+ nonpitting edema in bilateral lower extremities noted, no cyanosis, 2+ pulses and upper and lower extremities. MUSCULOSKELETAL: Muscle strength and tone normal. SPINE: No scoliosis or deformity SKIN: No rashes CENTRAL NERVOUS SYSTEM: Alert and oriented -3. No focal deficits, tone is normal in all 4 extremities. PSYCHIATRIC: Alert and oriented -3. Appropriate affect. Intact judgment and insight. - Labs CBC & Chem 7: 12/11/17 05:35 12/11/17 05:35 Labs: Abnormal Lab Results - Last 24 Hours (Table) 12/11/17 12/11/17 Range/Units 05:35 05:35 WBC 12.6 H (3.8-10.6) k/uL RBC 3.63 L (3.80-5.40) m/uL Hgb 10.4 L (11.4-16.0) gm/dL Hct 33.0 L (34.0-46.0) % Neutrophils # 10.2 H (1.3-7.7) k/uL Glucose 102 H (74-99) mg/dL Microbiology - Last 24 Hours (Table) 12/08/17 18:16 Blood Culture - Preliminary Blood No Growth after 48 hours 12/08/17 15:00 Blood Culture - Preliminary Blood No Growth after 48 hours Assessment and Plan Assessment: #1. Acute Sepsis secondary to urinary tract infection. The patient is confirmed to have E. coli septicemia. The bacteremia has cleared on subsequent blood cultures from 12/08/2017 was negative and the patient remains on IV Zosyn. #2. Acute worsening shortness of breath/hypoxemia likely secondary to above. The patient shortness of breath is improved and she is back to her baseline. #3. Atrial fibrillation with rapid ventricular response, recovered and the patient is currently off the Cardizem drip and she is back on Coreg 6.25 mg by mouth twice a day #4. Interstitial prominence, cardiomegaly consistent with mild systolic CHF #5. Cardiomyopathy, status post AICD placement, EF is 45-50% #6. Obstructive sleep apnea, with baseline AHI of 23 #7. Hypertension #8. Obesity #9. Recent thoracic spine surgery for spinal stenosis on November 2017 #10. Chronic indwelling catheter for urinary retention post thoracic spine surgery #11. Osteoarthritis #12. Elevated d-dimer, nonspecific Recommendation: Continue antibiotics, patient is presently on Zosyn, continue present supportive care measures, consider discharge planning, antibiotics as per infectious disease on the case. Time with Patient: Less than 30
[2017-12-11] MEDS: RIVAROXABAN 20 MG TAB PO SCH (18:10)
[2017-12-11] MEDS: SODIUM CHLORIDE 0.9% 1,000 ML IV SCH (21:30)
--- NOTE | 2017-12-11 21:58 | P.PN ---
Subjective Progress Note Date: 12/10/17 Principal diagnosis: Urinary tract infection Patient is a 67-year-old female with a known history of atrial fibrillation on antibiotics in for recently had spinal surgery cervical about a month ago [facility] with complaints of right lower back pain for the past 2 days. Patient says that her legs gave away about 2 days back and fell on her right side. Denies any hitting head. Patient is not able to twist back but says it does hurt more when she flexes her back to a sitting position. Patient denies bowel dysfunction and states she had a bowel movement today. Patient states she has been urinating less and her De La Rosa output is less than normal but unsure of the measurement. Patient took a Percocet about 2 hours ago which has helped her back pain since that time. Patient did have surgery on her thoracic spine on November 16 for spinal stenosis according to the patient. She has been unable to follow up with the surgeon as directed because she cannot walk down the stairs to leave the house. Patient states she is also experiencing burning urine and was diagnosed by [facility] with urinary tract infection. Patient is currently taking Keflex since yesterday.. She has had a de la rosa catheter in place since her surgery on the , and has been unable to follow up with the urologist as well. Patient had urine retention followed by surgery and since then patient is on De La Rosa catheter. Her next appointment for the urologist is on December 14 in [place]. She states she noticed her urine was bloody and she has had fevers and chills and has felt fatigued. Patient denies any shortness of breath, coughing, chest pain, or abdominal pain. Patient does admit to some suprapubic tenderness but denies pain. Patient was found have significant pyuria and the urinalysis. urine culture was sent. EKG showed atrial fibrillation with rapid regular rate Patient was febrile and tachycardic on admission. Patient had lumbar and thoracic spine x-ray was done in the ER. 12/06/2017 Patient became more shortness and hypoxic this morning. Patient was placed on BiPAP machine. Chest x-ray showed mild pulmonary aspirin condition otherwise patient was hypotensive and was started on Levophed. Pulmonary and cardiology has seen the patient. He was also on Cardizem drip for heart rate controlled. No fever today. Antibiotic 7J to Zosyn at this time. ID has been consulted as well. Patient denied any chest pain. No nausea vomiting or abdominal pain. Ultrasound of abdomen showed no hydronephrosis. 12/07/2017 Patient has been febrile today with T-max 103. Otherwise more awake and oriented. Patient is off Cardizem drip and Levophed. Hemodynamically stable. Urine culture showed gram-negative bacilli. No compressive chest pain or shortness of breath. No nausea vomiting or abdominal pain. 12/08/2017 Patient is again febrile this afternoon with T-max 103. Blood cultures showed E. coli. Otherwise urine culture is negative. ID has seen the patient and recommended further septic workup including CT abdomen and pelvis to rule out any source of infection. Otherwise patient is hemodynamically stable. Patient is being transferred to medical floor. Chest x-ray showed correlate for interstitial edema/pulmonary hypertension. 12/09/2017 Patient has been afebrile since yesterday. No complaints of chest pain or shortness of breath. Patient seems clinically much improved. No complaints of nausea vomiting or abdominal pain CT abdomen and pelvis showed no septic foci identified. Chronic degenerative and scoliosis changes were noted. 12/10/2017 Patient has been afebrile. Otherwise complaining of generalized weakness and leg weakness. Continues to require O2 her nausea cannula. Patient is also having De La Rosa catheter. No nausea vomiting or abdominal pain. Patient is being continued on Zosyn at this time for E. coli bacteremia. ID and pulmonary is following. All other review of systems negative except as above Current medications reviewed. Objective - Vital Signs Vital signs: Vital Signs Temp 97.5 F L 12/10/17 19:44 Pulse 83 12/10/17 19:44 Resp 18 12/10/17 19:44 BP 109/59 12/10/17 19:44 Pulse Ox 97 12/10/17 19:44 Intake & Output 12/10/17 12/10/17 12/11/17 06:59 18:59 06:59 Intake Total 360 Output Total 0 Balance -179 Weight Intake: IV 0.9 NACL cardizem zosyn Oral 360 Lipid cardizem Output: Urine 0 Other: Voiding Method Indwelling Catheter # Bowel Movements 1 - Exam Patient is lying in the bed comfortably, no acute distress, awake alert and oriented. Morbid obesity. HEENT: Normocephalic. Neck is supple. Pupils reactive. Nostrils clear. Oral cavity is moist. Ears reveal no drainage. Cervical spine surgical scar is intact. Neck reveals no JVD, carotid bruits, or thyromegaly. CHEST EXAMINATION: Trachea is central. Symmetrical expansion. Bilateral diminished air entry CARDIAC: Normal S1, S2 with no gallops. No murmurs irregularly irregular pulse ABDOMEN: Soft. Bowel sounds normal. No organomegaly. No abdominal bruits. Extremities: 1+ edema. No clubbing or cyanosis Neurologically awake, alert, oriented x3 with well-coordinated movements. No focal deficits noted Skin: No rash or skin lesions. Psychiatric: Cooperative. Nonsuicidal Musculoskeletal: No joint swelling or deformity. Normal range of motion. - Labs CBC & Chem 7: 12/11/17 05:35 12/11/17 05:35 Labs: Abnormal Lab Results - Last 24 Hours (Table) 12/10/17 Range/Units 07:08 WBC 11.5 H (3.8-10.6) k/uL RBC 3.52 L (3.80-5.40) m/uL Hgb 9.8 L (11.4-16.0) gm/dL Hct 32.5 L (34.0-46.0) % MCHC 30.2 L (31.0-37.0) g/dL Neutrophils # 9.1 H (1.3-7.7) k/uL Microbiology - Last 24 Hours (Table) 12/08/17 18:16 Blood Culture - Preliminary Blood No Growth after 48 hours 12/08/17 15:00 Blood Culture - Preliminary Blood No Growth after 48 hours Assessment and Plan Assessment: Acute hypoxic respiratory failure secondary to sepsis and mild CHF requiring BiPAP. Resolved now. Mild acute CHF with systolic. ejection fraction 45-50% Sepsis secondary to acute urinary tract infection. Complicated with De La Rosa catheter. E. coli septicemia Urinary tract infections related to indwelling De La Rosa catheter Hematuria likely due to UTI. Resolved. Follow-up H&H. Stable Status post mechanical fall due to legs gave away Atrial fibrillation with rapid ventricular rate. Off Cardizem drip History of AICD placement Recent cervical spine surgery about a month back Urine retention. On De La Rosa catheter since surgery in November 2017 Morbid obesity with BMI 51.5 Hypotension on admission due to sepsis and pain medications as well as rapid ventricular rate Osteoarthritis Plan: Antibiotics have been changed to Zosyn at this time. Ultrasound kidneys showed no hydronephrosis. Patient is off BiPAP and Levophed. Continue with IV fluids 2-D echocardiogram showed normal EF. Urology, ID, pulmonary and cardiology is following. Urine culture showed no growth. Blood cultures showed E. coli. Repeat blood cultures are negative. continue with the metoprolol and started back on anticoagulation. Monitor H&H. Further recommendations based on the clinical course. PT OT consult We will continue to follow closely. Time with Patient: Greater than 30
--- NOTE | 2017-12-11 22:00 | P.PN ---
Subjective Progress Note Date: 12/11/17 Principal diagnosis: Urinary tract infection Patient is a 67-year-old female with a known history of atrial fibrillation on antibiotics in for recently had spinal surgery cervical about a month ago [facility] with complaints of right lower back pain for the past 2 days. Patient says that her legs gave away about 2 days back and fell on her right side. Denies any hitting head. Patient is not able to twist back but says it does hurt more when she flexes her back to a sitting position. Patient denies bowel dysfunction and states she had a bowel movement today. Patient states she has been urinating less and her De La Rosa output is less than normal but unsure of the measurement. Patient took a Percocet about 2 hours ago which has helped her back pain since that time. Patient did have surgery on her thoracic spine on November 16 for spinal stenosis according to the patient. She has been unable to follow up with the surgeon as directed because she cannot walk down the stairs to leave the house. Patient states she is also experiencing burning urine and was diagnosed by [facility] with urinary tract infection. Patient is currently taking Keflex since yesterday.. She has had a de la rosa catheter in place since her surgery on the , and has been unable to follow up with the urologist as well. Patient had urine retention followed by surgery and since then patient is on De La Rosa catheter. Her next appointment for the urologist is on December 14 in [place]. She states she noticed her urine was bloody and she has had fevers and chills and has felt fatigued. Patient denies any shortness of breath, coughing, chest pain, or abdominal pain. Patient does admit to some suprapubic tenderness but denies pain. Patient was found have significant pyuria and the urinalysis. urine culture was sent. EKG showed atrial fibrillation with rapid regular rate Patient was febrile and tachycardic on admission. Patient had lumbar and thoracic spine x-ray was done in the ER. 12/06/2017 Patient became more shortness and hypoxic this morning. Patient was placed on BiPAP machine. Chest x-ray showed mild pulmonary aspirin condition otherwise patient was hypotensive and was started on Levophed. Pulmonary and cardiology has seen the patient. He was also on Cardizem drip for heart rate controlled. No fever today. Antibiotic 7J to Zosyn at this time. ID has been consulted as well. Patient denied any chest pain. No nausea vomiting or abdominal pain. Ultrasound of abdomen showed no hydronephrosis. 12/07/2017 Patient has been febrile today with T-max 103. Otherwise more awake and oriented. Patient is off Cardizem drip and Levophed. Hemodynamically stable. Urine culture showed gram-negative bacilli. No compressive chest pain or shortness of breath. No nausea vomiting or abdominal pain. 12/08/2017 Patient is again febrile this afternoon with T-max 103. Blood cultures showed E. coli. Otherwise urine culture is negative. ID has seen the patient and recommended further septic workup including CT abdomen and pelvis to rule out any source of infection. Otherwise patient is hemodynamically stable. Patient is being transferred to medical floor. Chest x-ray showed correlate for interstitial edema/pulmonary hypertension. 12/09/2017 Patient has been afebrile since yesterday. No complaints of chest pain or shortness of breath. Patient seems clinically much improved. No complaints of nausea vomiting or abdominal pain CT abdomen and pelvis showed no septic foci identified. Chronic degenerative and scoliosis changes were noted. 12/10/2017 Patient has been afebrile. Otherwise complaining of generalized weakness and leg weakness. Continues to require O2 her nausea cannula. Patient is also having De La Rosa catheter. No nausea vomiting or abdominal pain. Patient is being continued on Zosyn at this time for E. coli bacteremia. ID and pulmonary is following. 12/11/2017 Patient is able to sit on the side of the bed. Complained of bilateral leg weakness otherwise. chest x-ray showed bilateral improved aeration and mild vascular congestion. PT OT is following. Continued on current management with antibiotics. Possible transfer to rehab. All other review of systems negative except as above Current medications reviewed. Objective - Vital Signs Vital signs: Vital Signs Temp 98.4 F 12/11/17 20:00 Pulse 94 12/11/17 20:00 Resp 20 12/11/17 20:00 BP 122/71 12/11/17 15:45 Pulse Ox 96 12/11/17 20:00 Intake & Output 12/11/17 12/11/17 12/12/17 06:59 18:59 06:59 Intake Total 600 480 Output Total 1100 500 Balance -500 -20 Weight 150 kg Intake: Oral 600 480 Output: Urine 1100 500 Other: # Voids 1 0 # Bowel Movements 1 1 - Exam Patient is lying in the bed comfortably, no acute distress, awake alert and oriented. Morbid obesity. HEENT: Normocephalic. Neck is supple. Pupils reactive. Nostrils clear. Oral cavity is moist. Ears reveal no drainage. Cervical spine surgical scar is intact. Neck reveals no JVD, carotid bruits, or thyromegaly. CHEST EXAMINATION: Trachea is central. Symmetrical expansion. Bilateral basilar mild crackles. No wheezing. Improved aeration CARDIAC: Normal S1, S2 with no gallops. No murmurs irregularly irregular pulse ABDOMEN: Soft. Bowel sounds normal. No organomegaly. No abdominal bruits. Extremities: 1+ edema. No clubbing or cyanosis Neurologically awake, alert, oriented x3 with well-coordinated movements. No focal deficits noted Skin: No rash or skin lesions. Psychiatric: Cooperative. Nonsuicidal Musculoskeletal: No joint swelling or deformity. Normal range of motion. - Labs CBC & Chem 7: 12/11/17 05:35 12/11/17 05:35 Labs: Abnormal Lab Results - Last 24 Hours (Table) 12/11/17 12/11/17 Range/Units 05:35 05:35 WBC 12.6 H (3.8-10.6) k/uL RBC 3.63 L (3.80-5.40) m/uL Hgb 10.4 L (11.4-16.0) gm/dL Hct 33.0 L (34.0-46.0) % Neutrophils # 10.2 H (1.3-7.7) k/uL Glucose 102 H (74-99) mg/dL Microbiology - Last 24 Hours (Table) 12/08/17 18:16 Blood Culture - Preliminary Blood No Growth after 72 hours 12/08/17 15:00 Blood Culture - Preliminary Blood No Growth after 72 hours Assessment and Plan Assessment: Acute hypoxic respiratory failure secondary to sepsis and mild CHF requiring BiPAP. Resolved now. Currently on nasal cannula Mild acute CHF with systolic. ejection fraction 45-50% Sepsis secondary to acute urinary tract infection. Complicated with De La Rosa catheter. E. coli septicemia Urinary tract infections related to indwelling De La Rosa catheter Hematuria likely due to UTI. Resolved. Follow-up H&H. Stable Status post mechanical fall due to legs gave away Atrial fibrillation with rapid ventricular rate. Off Cardizem drip History of AICD placement Recent cervical spine surgery about a month back Urine retention. On De La Rosa catheter since surgery in November 2017 Morbid obesity with BMI 51.5 Hypotension on admission due to sepsis and pain medications as well as rapid ventricular rate Osteoarthritis Plan: Antibiotics have been changed to Zosyn at this time. Ultrasound kidneys showed no hydronephrosis. Patient is off BiPAP and Levophed. Continue with IV fluids 2-D echocardiogram showed normal EF. Urology, ID, pulmonary and cardiology is following. Urine culture showed no growth. Blood cultures showed E. coli. Repeat blood cultures are negative. continue with the metoprolol and started back on anticoagulation. Monitor H&H. Further recommendations based on the clinical course. PT OT consult We will continue to follow closely. Time with Patient: Greater than 30
--- NOTE | 2017-12-11 22:24 | PN ---
PROGRESS NOTE DATE OF SERVICE: 12/11/17 REASON FOR FOLLOWUP: E coli bacteremia source is likely urinary. INTERVAL HISTORY: The patient is afebrile. She is breathing comfortably. Denies having any chest pain, shortness of breath, cough, abdominal pain, nausea, or any diarrhea. EXAMINATION: Blood pressure is 122/71 with a pulse of 89, temperature of 97.3. She is 93% on 3 L nasal cannula. General description is an elderly female lying in bed in no distress. Respiratory system unlabored breathing, clear to auscultation anteriorly. Heart S1, S2. Regular rate and rhythm. Abdomen soft, no tenderness. Extremities: Some trace edema of feet. LABS: Hemoglobin 10.4, white count 4.6 with a BUN of 15, creatinine 0.80. Blood culture was an E coli. Repeat blood culture has been negative. Urine came back to be negative. The patient did have a CT of abdomen and pelvis. No suspicious acute finding identified. DIAGNOSTIC IMPRESSION AND PLAN: Patient with E coli bacteremia, source is likely urinary as the patient has positive urine. Overall improvement on Zosyn as a sensitive pathogen and will finish therapy with oral antibiotics. The CT abdomen and pelvis was negative for any acute abnormality. Chest x-ray mostly cardiomegaly with some vascular congestion. No evidence of pneumonia. Family present at bedside. All their questions were answered. MMODL / IJN: [id number] /
[2017-12-12] MEDS: PIPERACILLIN-TAZOBACTAM 3.375 GM in DEXTROSE/WATER 1 50ML.BAG IVPB SCH ×4 (01:52→23:59)
[2017-12-12] MEDS: SODIUM CHLORIDE 0.9% 1,000 ML IV SCH (01:53)
[2017-12-12] MEDS: CARVEDILOL 6.25 MG TAB PO SCH ×2 (06:35→18:33)
[2017-12-12 07:42] LABS: Basophils # (A) 0.1 k/uL (0-0.2); Basophils % (A) 1 %; Eosinophils # (A) 0.3 k/uL (0-0.7); Eosinophils % (A) 3 %; HCT 32.9 % (34.0-46.0); HGB 10.4 gm/dL (11.4-16.0); Hypochromasia Moderate; Lymphocytes # (A) 1.2 k/uL (1.0-4.8); Lymphocytes % (A) 12 %; MCH 29.2 pg (25.0-35.0); MCHC 31.7 g/dL (31.0-37.0); MCV 92.2 fL (80.0-100.0); Mean Platelet Volume 7.3; Monocytes # (A) 0.4 k/uL (0-1.0); Monocytes % (A) 4 %; Neutrophils # (A) 7.6 k/uL (1.3-7.7); Neutrophils % (A) 79 %; Platelet Count 245 k/uL (150-450); RBC 3.57 m/uL (3.80-5.40); RDW 14.2 % (11.5-15.5); WBC 9.7 k/uL (3.8-10.6)
[2017-12-12 07:51] LABS: Albumin 2.3 g/dL (3.5-5.0); Calcium 8.5 mg/dL (8.4-10.2); Potassium 4.1 mmol/L (3.5-5.1); Total Bilirubin 0.7 mg/dL (0.2-1.3); Total Protein 5.3 g/dL (6.3-8.2)
[2017-12-12] MEDS: ZINC SULFATE 220 MG CAP PO SCH (08:23)
[2017-12-12] MEDS: DILTIAZEM ORAL 60 MG TAB PO SCH ×4 (08:23→20:04)
[2017-12-12] MEDS: FAMOTIDINE 20 MG TAB PO SCH (08:23)
[2017-12-12] MEDS: DOCUSATE 100 MG CAP PO SCH (08:23)
[2017-12-12] MEDS: oxyCODONE-APAP 5-325MG 1 EACH TAB PO PRN ×2 (08:26→20:04)
[2017-12-12 11:28] VITALS: BMI 55.2
[2017-12-12] MEDS: ACETAMINOPHEN TAB 325 MG TAB PO PRN (13:28)
--- NOTE | 2017-12-12 14:27 | P.PN ---
Subjective Progress Note Date: 12/12/17 Principal diagnosis: Acute gram-negative sepsis secondary to urinary tract infection Viola is a 67-year-old white female patient of Dr. Combs, who presented to the emergency department on 12/05/2017 at 1352 with complaints of lower back pain, weakness in bilateral lower extremities, gait dysfunction, a fall at home occurring 2 days ago. Patient complained of decreased urinary output from her indwelling catheter. Patient had a recent thoracic spine surgery on 11/16/2017 for spinal stenosis and has had the Francois catheter since the surgery. She was being followed by a visiting nurse at home. She also noted hematuria, and was having fever and chills and overall generalized fatigue. She denies any shortness of breath, denies any chest pain, denies any chest congestion and sputum production. Denies any abdominal pain. Was having suprapubic tenderness on admission, which is not present now. EKG showed atrial fibrillation with rapid ventricular rate, patient was febrile and tachycardic on admission, temp was 100.5F, and a heart rate was ranging from 113-122 BPM. Lumbar x-ray shows scoliosis with multilevel degenerative severe disc disease, mild superior endplate compression deformity of L3 of indeterminate age. Thoracic spine x-ray was taken and showed C3-C4 posterior thoracic fusion hardware. Urinalysis showed significant pyuria and bacteriuria. Patient was started on Rocephin, IV 0.9 was infusing at 100 ML per hour. This morning of rapid response team was called in regards to patient's experiencing severe respiratory distress, fevers, chills. Patient was placed on BiPAP support, and was transferred to the intensive care. Chest x-ray showed mild cardiomegaly and interstitial prominence, AICD was noted. Patient's other medical history includes obstructive sleep apnea, cardiomyopathy, status post AICD placement, osteoarthritis, hypertension, obesity, chronic atrial fibrillation, arthritis. Lactic acid on admission was 1.0, on admission to ICU was 1.5. Patient is maintaining normal blood pressures, no hypotension at this time. Blood gas showed pH is 7.42, pCO2 32, pO2 of 353, this was done and FiO2 of 100%. Sepsis protocol has been initiated, blood cultures urine cultures have been ordered and sent. And are pending at this time. Ultrasound of the kidney showed no evident hydronephrosis. At the time of evaluation patient is seen on BiPAP support, fairly comfortable, is awake alert, and able to respond appropriately. FiO2 was decreased down to 45%. Continue IV fluids at a rate of 100 ML per hour. On 12/07/2017 patient seen in follow-up in intensive care unit. She did not require BiPAP last night. Norepinephrine drip was discontinued this morning at 8:00. No febrile episodes since yesterday on 12/06/2017 at 10 AM with the T- max of 103.1F. One low-grade fever with a temp of 99.9F at 4:00 this morning. Patient's urine still positive for some sediment, lightly cloudy, but improving. Urine output is ranging from 30-80 ML per hour. Lung sounds are positive for a few faint wheezes at the bases, no rales or rhonchi noted. Patient remains on 2 L per nasal cannula with O2 sat 96%. Hemodynamically stable. Remains slightly tachycardic, remains in A. fib, with a heart rate ranging between 98-108 BPM. We will try to set restart Coreg today at 6.25 mg twice a day. Cardizem drip has been discontinued last night. 0.9 is infusing at a rate of 100 ML per hour, yesterday patient received 2 L of 0.9 normal saline fluid bolus. She is developing worsening bilateral lower extremity edema , she is tolerating oral intake, we will decrease the IV rate of maintenance fluids to 20 ML per hour. Today's lab work showed a CBC of 15.2, hemoglobin is 10.4, sodium is 137, potassium is 4.8, BUN is 19, creatinine 0.90. Urine culture from 12/02/2017 was positive for E. coli, blood culture from 12/05/2017 was positive for gram-negative bacilli. Urine culture from 12/05/2017 showed no growth. On 12/08/2017 the patient was seen in follow-up in the medical floor. The patient is on a telemetry unit. Noted the patient was admitted intensive care for E. coli urine checked infection and sepsis. The patient was hypotensive. The patient was was resuscitated. Patient was taken off norepinephrine and she was transferred to the floor on a stable condition. Her atrial fibrillation was also under good control. Note that I talked to the nurses and she was doing well and around hour ago the patient became acutely ill, cold and then subsequently hot and warm and then she spiked a temperature of 102. She started having tremors. She started getting tachypneic and tachycardic and short of breath. During this time, the patient had a heart rate of 120 to 1: 30. The blood pressure was okay, and she was running a lower blood pressure that was 81/65 at around 9:00 and 93/67 at around noontime and later on during this episode the patient's blood pressure even went up higher. She became hypoxic however and on 5 L of oxygen nasal cannula her pulse ox dropped down to 83%. She was placed on 100% nonrebreather facemask. Producing urine output. At that point, the patient was given IV Tylenol. A stat blood gases were obtained and showed a pH of 7.37 with a pCO2 of 37 and pO2 100 on the percent nonrebreather facemask. The patient was given 500 mL of IV bolus. The patient had stat blood work that showed a white cell count of 12.1 and the rest of the electrodes are still pending for now. Note that that morning potassium was at 6.3 and the sample was slightly hemolyzed. Her renal function was within normal limits. The patient was taken off Cardizem drip. I ordered to restart Cardizem drip at 10 mg an hour. The patient is on IV Zosyn regarding the E. coli urine checked infection and sepsis. The patient is on Xarelto as long- term and coagulation regarding atrial fibrillation. As such possibility of pulmonary embolism is felt to be less likely. The chest x-ray was also obtained emergent basis and showed some pulmonary vascular congestion. The film itself was rotated and was suboptimal. Lung volumes were all low. The patient herself became lethargic and she was still following commands and answering questions appropriately. On 12/09/2017, the patient is being seen for a follow-up. Much improved compared to yesterday. No bright GERD or chills. Hemodynamically stable. The blood culture was positive for E. coli. The patient is currently on IV Zosyn. She is doing well. She is afebrile. Francois catheter in place. She is producing adequate amount of urine output. She is still negative fibrillation rate is controlled and the patient is currently off the Cardizem drip. No nausea. No vomiting. No abdominal pain. She is complaining of lower back pain as the patient had fallen. Surgical wound site over the upper back area is clean. No altered mentation. is at the bedside. Patient remained on anticoagulation with Xarelto regarding her chronic atrial fibrillation. She is tolerating her diet. She is morbidly obese. She is weak. Somewhat debilitated. May benefit from rehabilitation. On 12/10/2017, the patient is being seen for a follow-up. She is doing well. No fever or chills. Producing adequate amount of urine output. Start a combination of Zosyn and vancomycin. No nausea. No vomiting. No abdominal pain. She is having some chronic lower back pain. She is interested in becoming more active down the road. CAT scan of the abdomen was completed and the patient was not found to have any acute abnormalities. The lung bases showed small effusion and atelectasis. The gallbladder was distended without any inflammation. There was small amount of ascites. And there was also mild to moderate perinephric fat stranding, nonspecific suggestive of chronic medical renal disease. There was some prominence of the posterior retroperitoneal fat. The Francois catheter wasn't placed and the bladder was well deflated. The patient was also found to have some scoliosis and multilevel chronic degenerative changes of the lumbar spine. Patient was reevaluated today on 12/11/2017, doing quite well, relatively asymptomatic. Good urine output, remains on antibiotics including Zosyn and vancomycin. No cough no wheezing no shortness of breath, continues to have chronic back pain, she had previous lumbar surgery at [facility]. Labs were reviewed WBC count is 10.6 hemoglobin is 10.4 electrolytes are normal renal profile is normal. Reevaluated today on 12/12/2017, patient is doing better, remains on antibiotics as per infectious disease, relatively asymptomatic, no cough no wheezing no shortness of breath. CBC is relatively normal basic metabolic profile is normal. Renal profile is normal. Objective - Vital Signs Vital signs: Vital Signs Temp 98.7 F 12/12/17 11:45 Pulse 120 H 12/12/17 11:48 Resp 18 12/12/17 11:48 BP 111/70 12/12/17 11:45 Pulse Ox 91 L 12/12/17 11:45 Intake & Output 12/11/17 12/12/17 12/12/17 18:59 06:59 18:59 Intake Total 480 270 Output Total 500 950 Balance -20 -950 270 Weight 146 kg 146 kg Intake: IV 150 0.9 NACL 100 zosyn 50 Oral 480 120 Output: Urine 500 950 Other: Voiding Method Indwelling Catheter # Voids 0 1 # Bowel Movements 1 1 - Exam GENERAL EXAM: Patient is calm and comfortable and awake and alert and she is following commands and answering questions appropriately. No altered mentation. No tachycardia or tachypnea respiratory distress with this on today' s evaluation. HEAD: Normocephalic/atraumatic. EYES: Normal reaction of pupils, equal size. Conjunctiva pink, sclera white. NOSE: Clear with pink turbinates. THROAT: No erythema or exudates. NECK: No masses, no JVD, no thyroid enlargement, no adenopathy. CHEST: No chest wall deformity. Symmetrical expansion. LUNGS: Equal air entry with no crackles, wheeze, a few scattered rhonchi, faint wheezes at bilateral bases noted. CVS: Irregular rhythm and rate and the patient is somewhat tachycardic , normal S1 and S2, no gallops, no murmurs, no rubs ABDOMEN: Soft, nontender. No hepatosplenomegaly, normal bowel sounds, no guarding or rigidity. EXTREMITIES: No clubbing, 2+ nonpitting edema in bilateral lower extremities noted, no cyanosis, 2+ pulses and upper and lower extremities. MUSCULOSKELETAL: Muscle strength and tone normal. SPINE: No scoliosis or deformity SKIN: No rashes CENTRAL NERVOUS SYSTEM: Alert and oriented -3. No focal deficits, tone is normal in all 4 extremities. PSYCHIATRIC: Alert and oriented -3. Appropriate affect. Intact judgment and insight. - Labs CBC & Chem 7: 12/12/17 07:20 12/12/17 07:20 Labs: Abnormal Lab Results - Last 24 Hours (Table) 12/12/17 12/12/17 Range/Units 07:20 07:20 RBC 3.57 L (3.80-5.40) m/uL Hgb 10.4 L (11.4-16.0) gm/dL Hct 32.9 L (34.0-46.0) % Glucose 114 H (74-99) mg/dL Total Protein 5.3 L (6.3-8.2) g/dL Albumin 2.3 L (3.5-5.0) g/dL Microbiology - Last 24 Hours (Table) 12/08/17 18:16 Blood Culture - Preliminary Blood No Growth after 72 hours 12/08/17 15:00 Blood Culture - Preliminary Blood No Growth after 72 hours Assessment and Plan Assessment: #1. Acute Sepsis secondary to urinary tract infection. The patient is confirmed to have E. coli septicemia. The bacteremia has cleared on subsequent blood cultures from 12/08/2017 was negative and the patient remains on IV Zosyn. #2. Acute worsening shortness of breath/hypoxemia likely secondary to above. The patient shortness of breath is improved and she is back to her baseline. #3. Atrial fibrillation with rapid ventricular response, recovered and the patient is currently off the Cardizem drip and she is back on Coreg 6.25 mg by mouth twice a day #4. Interstitial prominence, cardiomegaly consistent with mild systolic CHF #5. Cardiomyopathy, status post AICD placement, EF is 45-50% #6. Obstructive sleep apnea, with baseline AHI of 23 #7. Hypertension #8. Obesity #9. Recent thoracic spine surgery for spinal stenosis on November 2017 #10. Chronic indwelling catheter for urinary retention post thoracic spine surgery #11. Osteoarthritis #12. Elevated d-dimer, nonspecific Recommendation: Continue antibiotics, discharge planning is in progress, antibiotics as per infectious disease, we will sign off and follow on when necessary basis. Time with Patient: Less than 30
--- NOTE | 2017-12-12 16:04 | PN ---
PROGRESS NOTE DATE OF SERVICE: 12/12/2017 REASON FOR FOLLOWUP: E coli bacteremia. Source is urinary. INTERVAL HISTORY: The patient is afebrile. She is breathing comfortably. She did have some cough but not bringing up any sputum. No chest pain. No abdominal pain. No diarrhea. The patient bowel movement. PHYSICAL EXAMINATION: Blood pressure 111/70 with a pulse of 91, temperature 98.7. She is 91% on room air. General description is an elderly female lying in bed in no distress. RESPIRATORY SYSTEM: Unlabored breathing. Clear to auscultation anteriorly. No wheeze or crackle. HEART: S1, S2. Regular rate and rhythm. ABDOMEN: Soft. No tenderness. LABS: Hemoglobin is 10.4, white count 9.7 with a BUN of 14, creatinine 0.90. Blood culture repeat has been negative. DIAGNOSTIC IMPRESSION AND PLAN: Patient with an Escherichia coli bacteremia, for which the patient did have extensive workup. CT abdomen and pelvis is negative for any abnormality. Her urine was significantly positive, likely the source of this bacteremia. Chest x-ray was mostly cardiomegaly with improvement in the pulmonary vascular congestion and no evidence of pneumonia. She is currently on Zosyn. White count normalized. Will recommend finishing therapy with oral Cipro for another 7 to 10 days with close outpatient followup. MMODL / IJN: [id number] /
[2017-12-12] MEDS: RIVAROXABAN 20 MG TAB PO SCH (18:33)
[2017-12-13] MEDS: CARVEDILOL 6.25 MG TAB PO SCH ×2 (07:04→17:39)
[2017-12-13 07:06] LABS: Basophils # (A) 0.1 k/uL (0-0.2); Basophils % (A) 1 %; Eosinophils # (A) 0.3 k/uL (0-0.7); Eosinophils % (A) 2 %; HCT 35.6 % (34.0-46.0); HGB 11.2 gm/dL (11.4-16.0); Hypochromasia Slight; Lymphocytes # (A) 1.7 k/uL (1.0-4.8); Lymphocytes % (A) 13 %; MCH 28.6 pg (25.0-35.0); MCHC 31.5 g/dL (31.0-37.0); MCV 90.9 fL (80.0-100.0); Mean Platelet Volume 6.9; Monocytes # (A) 0.5 k/uL (0-1.0); Monocytes % (A) 4 %; Neutrophils # (A) 10.1 k/uL (1.3-7.7); Neutrophils % (A) 78 %; Platelet Count 380 k/uL (150-450); RBC 3.91 m/uL (3.80-5.40); RDW 14.3 % (11.5-15.5)
[2017-12-13 07:20] LABS: Calcium 8.8 mg/dL (8.4-10.2); Potassium 4.1 mmol/L (3.5-5.1)
[2017-12-13] MEDS: oxyCODONE-APAP 5-325MG 1 EACH TAB PO PRN ×2 (08:37→20:00)
[2017-12-13] MEDS: DOCUSATE 100 MG CAP PO SCH (08:38)
[2017-12-13] MEDS: ZINC SULFATE 220 MG CAP PO SCH (08:38)
[2017-12-13] MEDS: PIPERACILLIN-TAZOBACTAM 3.375 GM in DEXTROSE/WATER 1 50ML.BAG IVPB SCH ×3 (08:38→23:43)
[2017-12-13] MEDS: DILTIAZEM ORAL 60 MG TAB PO SCH ×4 (08:38→20:00)
[2017-12-13] MEDS: FAMOTIDINE 20 MG TAB PO SCH (08:38)
--- NOTE | 2017-12-13 12:55 | P.PN ---
Subjective Progress Note Date: 12/12/17 Principal diagnosis: Urinary tract infection Patient is a 67-year-old female with a known history of atrial fibrillation on antibiotics in for recently had spinal surgery cervical about a month ago [facility] with complaints of right lower back pain for the past 2 days. Patient says that her legs gave away about 2 days back and fell on her right side. Denies any hitting head. Patient is not able to twist back but says it does hurt more when she flexes her back to a sitting position. Patient denies bowel dysfunction and states she had a bowel movement today. Patient states she has been urinating less and her De La Rosa output is less than normal but unsure of the measurement. Patient took a Percocet about 2 hours ago which has helped her back pain since that time. Patient did have surgery on her thoracic spine on November 16 for spinal stenosis according to the patient. She has been unable to follow up with the surgeon as directed because she cannot walk down the stairs to leave the house. Patient states she is also experiencing burning urine and was diagnosed by [facility] with urinary tract infection. Patient is currently taking Keflex since yesterday.. She has had a de la rosa catheter in place since her surgery on the , and has been unable to follow up with the urologist as well. Patient had urine retention followed by surgery and since then patient is on De La Rosa catheter. Her next appointment for the urologist is on December 14 in [place]. She states she noticed her urine was bloody and she has had fevers and chills and has felt fatigued. Patient denies any shortness of breath, coughing, chest pain, or abdominal pain. Patient does admit to some suprapubic tenderness but denies pain. Patient was found have significant pyuria and the urinalysis. urine culture was sent. EKG showed atrial fibrillation with rapid regular rate Patient was febrile and tachycardic on admission. Patient had lumbar and thoracic spine x-ray was done in the ER. 12/06/2017 Patient became more shortness and hypoxic this morning. Patient was placed on BiPAP machine. Chest x-ray showed mild pulmonary aspirin condition otherwise patient was hypotensive and was started on Levophed. Pulmonary and cardiology has seen the patient. He was also on Cardizem drip for heart rate controlled. No fever today. Antibiotic 7J to Zosyn at this time. ID has been consulted as well. Patient denied any chest pain. No nausea vomiting or abdominal pain. Ultrasound of abdomen showed no hydronephrosis. 12/07/2017 Patient has been febrile today with T-max 103. Otherwise more awake and oriented. Patient is off Cardizem drip and Levophed. Hemodynamically stable. Urine culture showed gram-negative bacilli. No compressive chest pain or shortness of breath. No nausea vomiting or abdominal pain. 12/08/2017 Patient is again febrile this afternoon with T-max 103. Blood cultures showed E. coli. Otherwise urine culture is negative. ID has seen the patient and recommended further septic workup including CT abdomen and pelvis to rule out any source of infection. Otherwise patient is hemodynamically stable. Patient is being transferred to medical floor. Chest x-ray showed correlate for interstitial edema/pulmonary hypertension. 12/09/2017 Patient has been afebrile since yesterday. No complaints of chest pain or shortness of breath. Patient seems clinically much improved. No complaints of nausea vomiting or abdominal pain CT abdomen and pelvis showed no septic foci identified. Chronic degenerative and scoliosis changes were noted. 12/10/2017 Patient has been afebrile. Otherwise complaining of generalized weakness and leg weakness. Continues to require O2 her nausea cannula. Patient is also having De La Rosa catheter. No nausea vomiting or abdominal pain. Patient is being continued on Zosyn at this time for E. coli bacteremia. ID and pulmonary is following. 12/11/2017 Patient is able to sit on the side of the bed. Complained of bilateral leg weakness otherwise. chest x-ray showed bilateral improved aeration and mild vascular congestion. PT OT is following. Continued on current management with antibiotics. Possible transfer to rehab. 12/12/2017 Patient is more awake and oriented. Patient is otherwise saturating on room air and is off oxygen with another cannula. Otherwise patient is part spreading in physical therapy. Continued on IV antibiotics. Continue with the De La Rosa catheter today. No fever no chills. No chest pain no shortness of breath. No nausea vomiting or abdominal pain. Otherwise no acute overnight issues. All other review of systems negative except as above Current medications reviewed. Objective - Vital Signs Vital signs: Vital Signs Temp 98.1 F 12/12/17 16:00 Pulse 90 12/12/17 16:00 Resp 18 12/12/17 16:00 BP 128/50 12/12/17 16:00 Pulse Ox 90 L 12/12/17 16:00 Intake & Output 12/12/17 12/12/17 12/13/17 06:59 18:59 06:59 Intake Total 270 Output Total 950 Balance -950 270 Weight 146 kg 146 kg Intake: IV 150 0.9 NACL 100 zosyn 50 Oral 120 Output: Urine 950 Other: Voiding Method Indwelling Catheter # Voids 1 # Bowel Movements 1 - Exam Patient is lying in the bed comfortably, no acute distress, awake alert and oriented. Morbid obesity. HEENT: Normocephalic. Neck is supple. Pupils reactive. Nostrils clear. Oral cavity is moist. Ears reveal no drainage. Cervical spine surgical scar is intact. Neck reveals no JVD, carotid bruits, or thyromegaly. CHEST EXAMINATION: Trachea is central. Symmetrical expansion. Bilateral basilar mild crackles. No wheezing. Improved aeration CARDIAC: Normal S1, S2 with no gallops. No murmurs irregularly irregular pulse ABDOMEN: Soft. Bowel sounds normal. No organomegaly. No abdominal bruits. Extremities: 1+ edema. No clubbing or cyanosis Neurologically awake, alert, oriented x3 with well-coordinated movements. No focal deficits noted Skin: No rash or skin lesions. Psychiatric: Cooperative. Nonsuicidal Musculoskeletal: No joint swelling or deformity. Normal range of motion. - Labs CBC & Chem 7: 12/13/17 06:16 12/13/17 06:16 Labs: Abnormal Lab Results - Last 24 Hours (Table) 12/12/17 12/12/17 Range/Units 07:20 07:20 RBC 3.57 L (3.80-5.40) m/uL Hgb 10.4 L (11.4-16.0) gm/dL Hct 32.9 L (34.0-46.0) % Glucose 114 H (74-99) mg/dL Total Protein 5.3 L (6.3-8.2) g/dL Albumin 2.3 L (3.5-5.0) g/dL Microbiology - Last 24 Hours (Table) 12/08/17 18:16 Blood Culture - Preliminary Blood No Growth after 72 hours 12/08/17 15:00 Blood Culture - Preliminary Blood No Growth after 72 hours Assessment and Plan Assessment: Acute hypoxic respiratory failure secondary to sepsis and mild CHF requiring BiPAP. Resolved now. Currently on saturating well on room air Mild acute CHF with systolic. ejection fraction 45-50%. Improved Sepsis secondary to acute urinary tract infection. Complicated with De La Rosa catheter. E. coli septicemia Urinary tract infections related to indwelling De La Rosa catheter Hematuria likely due to UTI. Resolved. Follow-up H&H. Stable Status post mechanical fall due to legs gave away Atrial fibrillation with rapid ventricular rate. Off Cardizem drip History of AICD placement Recent cervical spine surgery about a month back Urine retention. On De La Rosa catheter since surgery in November 2017 Morbid obesity with BMI 51.5 Hypotension on admission due to sepsis and pain medications as well as rapid ventricular rate Osteoarthritis Medical debility Plan: Antibiotics have been changed to Zosyn. Ultrasound kidneys showed no hydronephrosis. Patient is off BiPAP and Levophed. Tolerating oral diet now. This continued IV fluids. 2-D echocardiogram showed normal EF. Urology, ID, pulmonary and cardiology is following. Urine culture showed no growth. Blood cultures showed E. coli. Repeat blood cultures are negative. continue with the metoprolol and started back on anticoagulation. Monitor H&H. Further recommendations based on the clinical course. PT OT consult We will continue to follow closely. Time with Patient: Greater than 30
[2017-12-13] MEDS: ACETAMINOPHEN TAB 325 MG TAB PO PRN (14:06)
[2017-12-13] MEDS: SODIUM CHLORIDE 0.9% 1,000 ML IV SCH (17:39)
[2017-12-13] MEDS: RIVAROXABAN 20 MG TAB PO SCH (17:39)
--- NOTE | 2017-12-13 21:17 | PN ---
PROGRESS NOTE DATE OF SERVICE: 12/13/2017 REASON FOR FOLLOWUP: E. coli bacteremia, source likely urinary. INTERVAL HISTORY: The patient is afebrile. She is breathing comfortably. Denies having any chest pain or shortness of breath. Occasional cough. No abdominal pain and no diarrhea. EXAMINATION: Her vital signs are stable with a blood pressure of 110/70 with a pulse of 80, temperature of 98. General description is an elderly female up in the chair in no distress. RESPIRATORY SYSTEM: Unlabored breathing. Clear to auscultation anteriorly. HEART: S1, S2. Regular rate and rhythm. ABDOMEN: Soft. No tenderness. LABS: Hemoglobin 11.2, white count slightly up at 13,000 today with a BUN of 11, creatinine 0.82. DIAGNOSTIC IMPRESSION AND PLAN: Patient with an Escherichia coli bacteremia. Source is likely urinary. The patient did have significantly positive urinalysis on admission. Culture came back negative. She did have a CT of abdomen and pelvis, did not show any acute abnormality. Recommend to finish therapy with p.o. Cipro 500 mg twice a day for another 7 to 10 days with close outpatient followup. Continue supportive care. MMODL / IJN: [id number] /
--- NOTE | 2017-12-13 23:08 | P.PN ---
Subjective Progress Note Date: 12/13/17 Principal diagnosis: Urinary tract infection Patient is a 67-year-old female with a known history of atrial fibrillation on antibiotics in for recently had spinal surgery cervical about a month ago [facility] with complaints of right lower back pain for the past 2 days. Patient says that her legs gave away about 2 days back and fell on her right side. Denies any hitting head. Patient is not able to twist back but says it does hurt more when she flexes her back to a sitting position. Patient denies bowel dysfunction and states she had a bowel movement today. Patient states she has been urinating less and her De La Rosa output is less than normal but unsure of the measurement. Patient took a Percocet about 2 hours ago which has helped her back pain since that time. Patient did have surgery on her thoracic spine on November 16 for spinal stenosis according to the patient. She has been unable to follow up with the surgeon as directed because she cannot walk down the stairs to leave the house. Patient states she is also experiencing burning urine and was diagnosed by [facility] with urinary tract infection. Patient is currently taking Keflex since yesterday.. She has had a de la rosa catheter in place since her surgery on the , and has been unable to follow up with the urologist as well. Patient had urine retention followed by surgery and since then patient is on De La Rosa catheter. Her next appointment for the urologist is on December 14 in [place]. She states she noticed her urine was bloody and she has had fevers and chills and has felt fatigued. Patient denies any shortness of breath, coughing, chest pain, or abdominal pain. Patient does admit to some suprapubic tenderness but denies pain. Patient was found have significant pyuria and the urinalysis. urine culture was sent. EKG showed atrial fibrillation with rapid regular rate Patient was febrile and tachycardic on admission. Patient had lumbar and thoracic spine x-ray was done in the ER. 12/06/2017 Patient became more shortness and hypoxic this morning. Patient was placed on BiPAP machine. Chest x-ray showed mild pulmonary aspirin condition otherwise patient was hypotensive and was started on Levophed. Pulmonary and cardiology has seen the patient. He was also on Cardizem drip for heart rate controlled. No fever today. Antibiotic 7J to Zosyn at this time. ID has been consulted as well. Patient denied any chest pain. No nausea vomiting or abdominal pain. Ultrasound of abdomen showed no hydronephrosis. 12/07/2017 Patient has been febrile today with T-max 103. Otherwise more awake and oriented. Patient is off Cardizem drip and Levophed. Hemodynamically stable. Urine culture showed gram-negative bacilli. No compressive chest pain or shortness of breath. No nausea vomiting or abdominal pain. 12/08/2017 Patient is again febrile this afternoon with T-max 103. Blood cultures showed E. coli. Otherwise urine culture is negative. ID has seen the patient and recommended further septic workup including CT abdomen and pelvis to rule out any source of infection. Otherwise patient is hemodynamically stable. Patient is being transferred to medical floor. Chest x-ray showed correlate for interstitial edema/pulmonary hypertension. 12/09/2017 Patient has been afebrile since yesterday. No complaints of chest pain or shortness of breath. Patient seems clinically much improved. No complaints of nausea vomiting or abdominal pain CT abdomen and pelvis showed no septic foci identified. Chronic degenerative and scoliosis changes were noted. 12/10/2017 Patient has been afebrile. Otherwise complaining of generalized weakness and leg weakness. Continues to require O2 her nausea cannula. Patient is also having De La Rosa catheter. No nausea vomiting or abdominal pain. Patient is being continued on Zosyn at this time for E. coli bacteremia. ID and pulmonary is following. 12/11/2017 Patient is able to sit on the side of the bed. Complained of bilateral leg weakness otherwise. chest x-ray showed bilateral improved aeration and mild vascular congestion. PT OT is following. Continued on current management with antibiotics. Possible transfer to rehab. 12/12/2017 Patient is more awake and oriented. Patient is otherwise saturating on room air and is off oxygen with another cannula. Otherwise patient is part spreading in physical therapy. Continued on IV antibiotics. Continue with the De La Rosa catheter today. No fever no chills. No chest pain no shortness of breath. No nausea vomiting or abdominal pain. Otherwise no acute overnight issues. 12/13/2017 Patient is improving clinically. Able to participate in physical therapy. De La Rosa catheter will be discontinued and trial void. No fever no chills. Continued on antibiotics in the form of Zosyn. No nausea vomiting or abdominal pain. Leg weakness improved compared to yesterday. No shortness of breath. Otherwise no acute overnight issues. All other review of systems negative except as above Current medications reviewed. Objective - Vital Signs Vital signs: Vital Signs Temp 97.8 F 12/13/17 08:30 Pulse 101 H 12/13/17 11:35 Resp 16 12/13/17 11:35 BP 116/61 12/13/17 11:35 Pulse Ox 96 12/13/17 11:35 Intake & Output 12/12/17 12/13/17 12/13/17 18:59 06:59 18:59 Intake Total 270 620 330 Output Total 280 500 Balance 270 340 -170 Weight 146 kg 147.5 kg Intake: IV 150 210 0.9 NACL 100 160 zosyn 50 50 Intake, IV Titration 270 Amount Piperacillin-Tazobactam 3 50 .375 gm In Dextrose/Water 1 50ml.bag @ 12.5 mls/hr IVPB Q8HR TIFFANY Rx#: [id number] Sodium Chloride 0.9% 1, 220 000 ml @ 20 mls/hr IV . Q24H TIFFANY Rx#:[id number] Oral 120 350 120 Output: Urine 280 500 Other: Voiding Method Indwelling Catheter Indwelling Catheter Indwelling Catheter - Exam Patient is lying in the bed comfortably, no acute distress, awake alert and oriented. Morbid obesity. HEENT: Normocephalic. Neck is supple. Pupils reactive. Nostrils clear. Oral cavity is moist. Ears reveal no drainage. Cervical spine surgical scar is intact. Neck reveals no JVD, carotid bruits, or thyromegaly. CHEST EXAMINATION: Trachea is central. Symmetrical expansion. Bilateral basilar mild crackles. No wheezing. Improved aeration CARDIAC: Normal S1, S2 with no gallops. No murmurs irregularly irregular pulse ABDOMEN: Soft. Bowel sounds normal. No organomegaly. No abdominal bruits. Extremities: 1+ edema. No clubbing or cyanosis Neurologically awake, alert, oriented x3 with well-coordinated movements. No focal deficits noted Skin: No rash or skin lesions. Psychiatric: Cooperative. Nonsuicidal Musculoskeletal: No joint swelling or deformity. Normal range of motion. - Labs CBC & Chem 7: 12/13/17 06:16 12/13/17 06:16 Labs: Abnormal Lab Results - Last 24 Hours (Table) 03/14/18 03/14/18 Range/Units 06:16 06:16 WBC 13.0 H (3.8-10.6) k/uL Hgb 11.2 L (11.4-16.0) gm/dL Neutrophils # 10.1 H (1.3-7.7) k/uL Glucose 103 H (74-99) mg/dL Microbiology - Last 24 Hours (Table) 12/08/17 18:16 Blood Culture - Preliminary Blood No Growth after 96 hours 12/08/17 15:00 Blood Culture - Preliminary Blood No Growth after 96 hours Assessment and Plan Assessment: Acute hypoxic respiratory failure secondary to sepsis and mild CHF requiring BiPAP. Resolved now. Currently on saturating well on room air Mild acute CHF with systolic. ejection fraction 45-50%. Improved Sepsis secondary to acute urinary tract infection. Complicated with De La Rosa catheter. E. coli septicemia Urinary tract infections related to indwelling De La Rosa catheter Hematuria likely due to UTI. Resolved. Follow-up H&H. Stable Status post mechanical fall due to legs gave away Atrial fibrillation with rapid ventricular rate. Off Cardizem drip History of AICD placement Recent cervical spine surgery about a month back Urine retention. On De La Rosa catheter since surgery in November 2017 Morbid obesity with BMI 51.5 Hypotension on admission due to sepsis and pain medications as well as rapid ventricular rate Osteoarthritis Medical debility Plan: Antibiotics have been changed to Zosyn. Ultrasound kidneys showed no hydronephrosis. Patient is off BiPAP and Levophed. Tolerating oral diet now. This continued IV fluids. 2-D echocardiogram showed normal EF. Urology, ID, pulmonary and cardiology is following. Urine culture showed no growth. Blood cultures showed E. coli. Repeat blood cultures are negative. continue with the metoprolol and started back on anticoagulation. Monitor H&H. Further recommendations based on the clinical course. PT OT consult We will continue to follow closely. Time with Patient: Greater than 30
[2017-12-13 23:25] VITALS: RESP 20
[2017-12-14 07:42] VITALS: BP 131/78; PULSE 111; TEMP 97.9
[2017-12-14] MEDS: DOCUSATE 100 MG CAP PO SCH (08:49)
[2017-12-14] MEDS: oxyCODONE-APAP 5-325MG 1 EACH TAB PO PRN (08:49)
[2017-12-14] MEDS: FAMOTIDINE 20 MG TAB PO SCH (08:50)
[2017-12-14] MEDS: DILTIAZEM ORAL 60 MG TAB PO SCH ×2 (08:50→12:26)
[2017-12-14] MEDS: CARVEDILOL 6.25 MG TAB PO SCH (08:50)
[2017-12-14] MEDS: ZINC SULFATE 220 MG CAP PO SCH (08:50)
[2017-12-14] MEDS: PIPERACILLIN-TAZOBACTAM 3.375 GM in DEXTROSE/WATER 1 50ML.BAG IVPB SCH (09:21)
[2017-12-14] MEDS: SODIUM CHLORIDE 0.9% 1,000 ML IV SCH (12:28)
--- NOTE | 2017-12-14 14:21 | P.DS ---
Providers Date of admission: 12/05/17 15:39 Expected date of discharge: 12/14/17 Attending physician: Bita Daly Consults: 12/05/17 16:05 Consult Physician Routine Consulting Provider: Tim Tovar Consult Reason/Comments: Afib Do you want consulting provider notified?: Yes 12/06/17 08:53 Consult Physician Urgent Consulting Provider: Narcisa Mueller Consult Reason/Comments: resp distress Do you want consulting provider notified?: Yes 12/06/17 08:54 Consult Physician Urgent Consulting Provider: Shaan Phelps Consult Reason/Comments: uti sepsis Do you want consulting provider notified?: Yes 12/06/17 10:56 Consult Physician Routine Consulting Provider: Olegario Newby Consult Reason/Comments: acute urinary tract infection, sepsis, urinary retention Do you want consulting provider notified?: Yes Primary care physician: [facility] Course: Patient is a 67-year-old female with a known history of atrial fibrillation on antibiotics in for recently had spinal surgery cervical about a month ago [facility] with complaints of right lower back pain for the past 2 days. Patient says that her legs gave away about 2 days back and fell on her right side. Denies any hitting head. Patient is not able to twist back but says it does hurt more when she flexes her back to a sitting position. Patient denies bowel dysfunction and states she had a bowel movement today. Patient states she has been urinating less and her De La Rosa output is less than normal but unsure of the measurement. Patient took a Percocet about 2 hours ago which has helped her back pain since that time. Patient did have surgery on her thoracic spine on November 16 for spinal stenosis according to the patient. She has been unable to follow up with the surgeon as directed because she cannot walk down the stairs to leave the house. Acute hypoxic respiratory failure secondary to sepsis and mild CHF requiring BiPAP. Resolved now. Currently on saturating well on room air Mild acute CHF with systolic. ejection fraction 45-50%. Improved Sepsis secondary to acute urinary tract infection. Complicated with De La Rosa catheter. E. coli septicemia Urinary tract infections related to indwelling De La Rosa catheter Hematuria likely due to UTI. Resolved. Follow-up H&H. Stable Status post mechanical fall due to legs gave away Atrial fibrillation with rapid ventricular rate. Off Cardizem drip History of AICD placement Recent cervical spine surgery about a month back Urine retention. On De La Rosa catheter since surgery in November 2017 Morbid obesity with BMI 51.5 Hypotension on admission due to sepsis and pain medications as well as rapid ventricular rate Osteoarthritis Medical debility Patient states she is also experiencing burning urine and was diagnosed by critical access [facility] with urinary tract infection. Patient is currently taking Keflex since yesterday.. She has had a de la rosa catheter in place since her surgery on the , and has been unable to follow up with the urologist as well. Patient had urine retention followed by surgery and since then patient is on De La Rosa catheter. Her next appointment for the urologist is on December 14 in [place]. She states she noticed her urine was bloody and she has had fevers and chills and has felt fatigued. Patient denies any shortness of breath, coughing, chest pain, or abdominal pain. Patient does admit to some suprapubic tenderness but denies pain. Patient was found have significant pyuria and the urinalysis. urine culture was sent. EKG showed atrial fibrillation with rapid regular rate Patient was febrile and tachycardic on admission. Patient had lumbar and thoracic spine x-ray was done in the ER. 12/06/2017 Patient became more shortness and hypoxic this morning. Patient was placed on BiPAP machine. Chest x-ray showed mild pulmonary aspirin condition otherwise patient was hypotensive and was started on Levophed. Pulmonary and cardiology has seen the patient. He was also on Cardizem drip for heart rate controlled. No fever today. Antibiotic 7J to Zosyn at this time. ID has been consulted as well. Patient denied any chest pain. No nausea vomiting or abdominal pain. Ultrasound of abdomen showed no hydronephrosis. 12/07/2017 Patient has been febrile today with T-max 103. Otherwise more awake and oriented. Patient is off Cardizem drip and Levophed. Hemodynamically stable. Urine culture showed gram-negative bacilli. No compressive chest pain or shortness of breath. No nausea vomiting or abdominal pain. 12/08/2017 Patient is again febrile this afternoon with T-max 103. Blood cultures showed E. coli. Otherwise urine culture is negative. ID has seen the patient and recommended further septic workup including CT abdomen and pelvis to rule out any source of infection. Otherwise patient is hemodynamically stable. Patient is being transferred to medical floor. Chest x-ray showed correlate for interstitial edema/pulmonary hypertension. 12/09/2017 Patient has been afebrile since yesterday. No complaints of chest pain or shortness of breath. Patient seems clinically much improved. No complaints of nausea vomiting or abdominal pain CT abdomen and pelvis showed no septic foci identified. Chronic degenerative and scoliosis changes were noted. 12/10/2017 Patient has been afebrile. Otherwise complaining of generalized weakness and leg weakness. Continues to require O2 her nausea cannula. Patient is also having De La Rosa catheter. No nausea vomiting or abdominal pain. Patient is being continued on Zosyn at this time for E. coli bacteremia. ID and pulmonary is following. 12/11/2017 Patient is able to sit on the side of the bed. Complained of bilateral leg weakness otherwise. chest x-ray showed bilateral improved aeration and mild vascular congestion. PT OT is following. Continued on current management with antibiotics. Possible transfer to rehab. 12/12/2017 Patient is more awake and oriented. Patient is otherwise saturating on room air and is off oxygen with another cannula. Otherwise patient is part spreading in physical therapy. Continued on IV antibiotics. Continue with the De La Rosa catheter today. No fever no chills. No chest pain no shortness of breath. No nausea vomiting or abdominal pain. Otherwise no acute overnight issues. 12/13/2017 Patient is improving clinically. Able to participate in physical therapy. De La Rosa catheter will be discontinued and trial void. No fever no chills. Continued on antibiotics in the form of Zosyn. No nausea vomiting or abdominal pain. Leg weakness improved compared to yesterday. No shortness of breath. Otherwise no acute overnight issues. 12/14/17 Pt is voiding spontaneously and is participating in PT Antibiotics changed from ceftriaxoneto Zosyn and continued. Ultrasound kidneys showed no hydronephrosis. Patient is off BiPAP and Levophed. transferred out of MICU. Tolerating oral diet now. discontinued IV fluids. 2-D echocardiogram showed normal EF. Urology, ID, pulmonary and cardiology has seen the pt.. Urine culture showed no growth. Blood cultures showed E. coli. Repeat blood cultures are negative. c/w Cardizem and Coreg. HR is controlled. Monitored H&H. PT OT consulted. Pt. is stable to be transferred to rehab Patient is lying in the bed comfortably, no acute distress, awake alert and oriented. Morbid obesity. HEENT: Normocephalic. Neck is supple. Pupils reactive. Nostrils clear. Oral cavity is moist. Ears reveal no drainage. Cervical spine surgical scar is intact. Neck reveals no JVD, carotid bruits, or thyromegaly. CHEST EXAMINATION: Trachea is central. Symmetrical expansion. Bilateral basilar mild crackles. No wheezing. CARDIAC: Normal S1, S2 with no gallops. No murmurs irregularly irregular pulse ABDOMEN: Soft. Bowel sounds normal. No organomegaly. No abdominal bruits. Extremities: 1+ edema. No clubbing or cyanosis Neurologically awake, alert, oriented x3 with well-coordinated movements. No focal deficits noted Skin: No rash or skin lesions. Psychiatric: Cooperative. Nonsuicidal Musculoskeletal: No joint swelling or deformity. Normal range of motion Vital Signs 12/05/17 12/05/17 12/05/17 14:08 14:30 15:35 Temperature 100.5 F H 100 F H Pulse Rate 113 H 119 H 122 H Pulse Rate [ Bilateral Radial] Pulse Rate [ [employer] ] Pulse Rate [ Pulse Oximetery ] Pulse Rate [ Right Pulse Oximetery] Respiratory 20 20 20 Rate Blood Pressure 115/58 104/72 100/66 Blood Pressure [Left Arm] Blood Pressure [Right Arm] O2 Sat by Pulse 98 92 L 94 L Oximetry 12/05/17 12/05/17 12/05/17 16:37 16:55 18:49 Temperature 98.3 F 99 F Pulse Rate 114 H 108 H Pulse Rate [ Bilateral Radial] Pulse Rate [ [employer] ] Pulse Rate [ 115 H Pulse Oximetery ] Pulse Rate [ Right Pulse Oximetery] Respiratory 20 16 18 Rate Blood Pressure 104/65 106/64 Blood Pressure 94/57 [Left Arm] Blood Pressure [Right Arm] O2 Sat by Pulse 96 90 L 96 Oximetry 12/05/17 12/05/17 12/05/17 19:48 20:52 23:08 Temperature Pulse Rate 102 H 107 H Pulse Rate [ Bilateral Radial] Pulse Rate [ [employer] ] Pulse Rate [ 115 H Pulse Oximetery ] Pulse Rate [ Right Pulse Oximetery] Respiratory 18 18 18 Rate Blood Pressure 104/68 110/67 Blood Pressure [Left Arm] Blood Pressure [Right Arm] O2 Sat by Pulse 96 98 Oximetry 12/06/17 12/06/17 12/06/17 00:00 04:00 08:20 Temperature 98.3 F 98.9 F 102.9 F H Pulse Rate Pulse Rate [ Bilateral Radial] Pulse Rate [ [employer] ] Pulse Rate [ 115 H 118 H 152 H Pulse Oximetery ] Pulse Rate [ Right Pulse Oximetery] Respiratory 18 18 18 Rate Blood Pressure Blood Pressure 94/57 98/60 108/66 [Left Arm] Blood Pressure [Right Arm] O2 Sat by Pulse 91 L 91 L 91 L Oximetry 12/06/17 12/06/17 12/06/17 09:08 09:10 09:20 Temperature 103 F H Pulse Rate 146 H 149 H 151 H Pulse Rate [ Bilateral Radial] Pulse Rate [ [employer] ] Pulse Rate [ 152 H Pulse Oximetery ] Pulse Rate [ Right Pulse Oximetery] Respiratory 46 H 31 H 41 H Rate Blood Pressure 140/90 Blood Pressure [Left Arm] Blood Pressure [Right Arm] O2 Sat by Pulse 97 94 L 94 L Oximetry 12/06/17 12/06/17 12/06/17 09:30 09:40 09:50 Temperature Pulse Rate 134 H 152 H 141 H Pulse Rate [ Bilateral Radial] Pulse Rate [ [employer] ] Pulse Rate [ Pulse Oximetery ] Pulse Rate [ Right Pulse Oximetery] Respiratory 37 H 35 H 31 H Rate Blood Pressure 157/79 157/79 104/64 Blood Pressure [Left Arm] Blood Pressure [Right Arm] O2 Sat by Pulse 100 99 95 Oximetry 12/06/17 12/06/17 12/06/17 10:00 10:15 10:30 Temperature 103.1 F H Pulse Rate 145 H 129 H 117 H Pulse Rate [ Bilateral Radial] Pulse Rate [ [employer] ] Pulse Rate [ Pulse Oximetery ] Pulse Rate [ Right Pulse Oximetery] Respiratory 30 H 32 H 29 H Rate Blood Pressure 109/70 99/53 84/49 Blood Pressure [Left Arm] Blood Pressure [Right Arm] O2 Sat by Pulse 97 97 96 Oximetry 12/06/17 12/06/17 12/06/17 10:45 11:00 11:15 Temperature Pulse Rate 131 H 118 H 124 H Pulse Rate [ Bilateral Radial] Pulse Rate [ [employer] ] Pulse Rate [ Pulse Oximetery ] Pulse Rate [ Right Pulse Oximetery] Respiratory 28 H 28 H 24 Rate Blood Pressure 87/50 77/50 85/44 Blood Pressure [Left Arm] Blood Pressure [Right Arm] O2 Sat by Pulse 96 92 L 92 L Oximetry 12/06/17 12/06/17 12/06/17 11:30 11:45 12:00 Temperature Pulse Rate 117 H 89 88 Pulse Rate [ Bilateral Radial] Pulse Rate [ [employer] ] Pulse Rate [ Pulse Oximetery ] Pulse Rate [ Right Pulse Oximetery] Respiratory 27 H 21 24 Rate Blood Pressure 94/61 62/43 74/47 Blood Pressure [Left Arm] Blood Pressure [Right Arm] O2 Sat by Pulse 93 L 90 L 94 L Oximetry 12/06/17 12/06/17 12/06/17 12:15 12:30 12:40 Temperature 99.6 F Pulse Rate 76 98 Pulse Rate [ Bilateral Radial] Pulse Rate [ [employer] ] Pulse Rate [ 72 Pulse Oximetery ] Pulse Rate [ Right Pulse Oximetery] Respiratory 30 H 22 18 Rate Blood Pressure 107/52 Blood Pressure [Left Arm] Blood Pressure [Right Arm] O2 Sat by Pulse 93 L 93 L Oximetry 12/06/17 12/06/17 12/06/17 12:45 13:00 13:15 Temperature Pulse Rate 96 86 95 Pulse Rate [ Bilateral Radial] Pulse Rate [ [employer] ] Pulse Rate [ Pulse Oximetery ] Pulse Rate [ Right Pulse Oximetery] Respiratory 21 20 17 Rate Blood Pressure 107/52 118/48 80/37 Blood Pressure [Left Arm] Blood Pressure [Right Arm] O2 Sat by Pulse 93 L 92 L 94 L Oximetry 12/06/17 12/06/17 12/06/17 13:30 13:45 14:00 Temperature Pulse Rate 110 H 99 82 Pulse Rate [ Bilateral Radial] Pulse Rate [ [employer] ] Pulse Rate [ Pulse Oximetery ] Pulse Rate [ Right Pulse Oximetery] Respiratory 22 18 18 Rate Blood Pressure 87/34 80/56 91/44 Blood Pressure [Left Arm] Blood Pressure [Right Arm] O2 Sat by Pulse 95 92 L 92 L Oximetry 12/06/17 12/06/17 12/06/17 14:30 15:00 16:00 Temperature Pulse Rate 93 Pulse Rate [ 82 80 Bilateral Radial] Pulse Rate [ [employer] ] Pulse Rate [ Pulse Oximetery ] Pulse Rate [ Right Pulse Oximetery] Respiratory 17 18 18 Rate Blood Pressure 80/54 Blood Pressure 102/51 106/69 [Left Arm] Blood Pressure [Right Arm] O2 Sat by Pulse 92 L Oximetry 12/06/17 12/06/17 12/06/17 17:00 18:00 20:00 Temperature 97.9 F Pulse Rate Pulse Rate [ 80 88 98 Bilateral Radial] Pulse Rate [ 98 [employer] ] Pulse Rate [ Pulse Oximetery ] Pulse Rate [ Right Pulse Oximetery] Respiratory 20 20 22 Rate Blood Pressure Blood Pressure 121/77 115/66 97/64 [Left Arm] Blood Pressure [Right Arm] O2 Sat by Pulse 98 98 97 Oximetry 12/06/17 12/06/17 12/06/17 21:00 22:00 23:00 Temperature Pulse Rate Pulse Rate [ Bilateral Radial] Pulse Rate [ 90 96 96 [employer] ] Pulse Rate [ Pulse Oximetery ] Pulse Rate [ Right Pulse Oximetery] Respiratory 24 28 H 15 Rate Blood Pressure Blood Pressure 118/58 95/53 89/52 [Left Arm] Blood Pressure [Right Arm] O2 Sat by Pulse 97 98 98 Oximetry 12/07/17 12/07/17 12/07/17 00:00 01:00 02:00 Temperature 97.5 F L Pulse Rate Pulse Rate [ Bilateral Radial] Pulse Rate [ 94 102 H 102 H [employer] ] Pulse Rate [ Pulse Oximetery ] Pulse Rate [ Right Pulse Oximetery] Respiratory 25 H 29 H 17 Rate Blood Pressure Blood Pressure 97/44 78/61 103/68 [Left Arm] Blood Pressure [Right Arm] O2 Sat by Pulse 96 91 L 99 Oximetry 12/07/17 12/07/17 12/07/17 03:00 04:00 05:00 Temperature 99.9 F H Pulse Rate Pulse Rate [ Bilateral Radial] Pulse Rate [ 104 H 112 H 110 H [employer] ] Pulse Rate [ Pulse Oximetery ] Pulse Rate [ Right Pulse Oximetery] Respiratory 18 14 20 Rate Blood Pressure Blood Pressure 104/53 112/56 107/51 [Left Arm] Blood Pressure [Right Arm] O2 Sat by Pulse 95 93 L 94 L Oximetry 12/07/17 12/07/17 12/07/17 05:55 07:00 07:36 Temperature Pulse Rate Pulse Rate [ Bilateral Radial] Pulse Rate [ 108 H 114 H [employer] ] Pulse Rate [ Pulse Oximetery ] Pulse Rate [ Right Pulse Oximetery] Respiratory 17 24 Rate Blood Pressure Blood Pressure 109/62 132/56 [Left Arm] Blood Pressure [Right Arm] O2 Sat by Pulse 95 95 95 Oximetry 12/07/17 12/07/17 12/07/17 08:00 09:00 10:00 Temperature 98 F Pulse Rate Pulse Rate [ Bilateral Radial] Pulse Rate [ 98 113 H 110 H [employer] ] Pulse Rate [ Pulse Oximetery ] Pulse Rate [ Right Pulse Oximetery] Respiratory 18 16 16 Rate Blood Pressure Blood Pressure 121/72 118/60 116/63 [Left Arm] Blood Pressure [Right Arm] O2 Sat by Pulse 96 96 96 Oximetry 12/07/17 12/07/17 12/07/17 11:00 12:00 13:00 Temperature 99.5 F 103.0 F H Pulse Rate 118 H Pulse Rate [ Bilateral Radial] Pulse Rate [ 126 H 116 H 130 H [employer] ] Pulse Rate [ Pulse Oximetery ] Pulse Rate [ Right Pulse Oximetery] Respiratory 18 18 26 H Rate Blood Pressure 104/56 Blood Pressure 107/65 113/60 119/56 [Left Arm] Blood Pressure [Right Arm] O2 Sat by Pulse 98 98 92 L Oximetry 12/07/17 12/07/17 12/07/17 15:00 16:00 17:00 Temperature 100.0 F H 99.6 F Pulse Rate 125 H 120 H 113 H Pulse Rate [ Bilateral Radial] Pulse Rate [ [employer] ] Pulse Rate [ Pulse Oximetery ] Pulse Rate [ Right Pulse Oximetery] Respiratory 28 H 20 20 Rate Blood Pressure 124/60 108/53 109/55 Blood Pressure [Left Arm] Blood Pressure [Right Arm] O2 Sat by Pulse 95 96 95 Oximetry 12/07/17 12/07/17 12/07/17 18:00 19:44 23:42 Temperature 98.1 F 98.9 F Pulse Rate 126 H Pulse Rate [ Bilateral Radial] Pulse Rate [ 123 H [employer] ] Pulse Rate [ Pulse Oximetery ] Pulse Rate [ 113 H Right Pulse Oximetery] Respiratory 27 H 19 18 Rate Blood Pressure 121/52 Blood Pressure 109/58 123/49 [Left Arm] Blood Pressure [Right Arm] O2 Sat by Pulse 94 L 98 96 Oximetry 12/08/17 12/08/17 12/08/17 02:36 09:00 12:25 Temperature 98.3 F 97.6 F 97.8 F Pulse Rate Pulse Rate [ Bilateral Radial] Pulse Rate [ 117 H 100 111 H [employer] ] Pulse Rate [ Pulse Oximetery ] Pulse Rate [ Right Pulse Oximetery] Respiratory 20 18 18 Rate Blood Pressure Blood Pressure 102/52 81/65 93/67 [Left Arm] Blood Pressure [Right Arm] O2 Sat by Pulse 98 99 100 Oximetry 12/08/17 12/08/17 12/09/17 17:59 20:00 01:39 Temperature 103.8 F H 98.1 F 97.1 F L Pulse Rate Pulse Rate [ Bilateral Radial] Pulse Rate [ 136 H [employer] ] Pulse Rate [ Pulse Oximetery ] Pulse Rate [ 97 95 Right Pulse Oximetery] Respiratory 36 H 16 17 Rate Blood Pressure Blood Pressure 96/48 110/62 104/66 [Left Arm] Blood Pressure [Right Arm] O2 Sat by Pulse 92 L 96 98 Oximetry 12/09/17 12/09/17 12/09/17 08:00 12:00 16:00 Temperature 96.9 F L 99 F 98.2 F Pulse Rate Pulse Rate [ Bilateral Radial] Pulse Rate [ [employer] ] Pulse Rate [ Pulse Oximetery ] Pulse Rate [ 94 103 H 85 Right Pulse Oximetery] Respiratory 20 20 18 Rate Blood Pressure Blood Pressure 111/68 112/46 110/57 [Left Arm] Blood Pressure [Right Arm] O2 Sat by Pulse 95 97 93 L Oximetry 12/09/17 12/10/17 12/10/17 20:00 00:00 04:00 Temperature 99.5 F 98.4 F 97.6 F Pulse Rate Pulse Rate [ Bilateral Radial] Pulse Rate [ [employer] ] Pulse Rate [ Pulse Oximetery ] Pulse Rate [ 89 87 93 Right Pulse Oximetery] Respiratory 16 12 14 Rate Blood Pressure Blood Pressure 109/59 117/54 113/66 [Left Arm] Blood Pressure [Right Arm] O2 Sat by Pulse 97 95 94 L Oximetry 12/10/17 12/10/17 12/10/17 08:00 11:50 16:00 Temperature 96.8 F L 98.3 F 97.6 F Pulse Rate Pulse Rate [ Bilateral Radial] Pulse Rate [ [employer] ] Pulse Rate [ Pulse Oximetery ] Pulse Rate [ 98 90 86 Right Pulse Oximetery] Respiratory 14 16 18 Rate Blood Pressure Blood Pressure 109/63 97/62 111/63 [Left Arm] Blood Pressure [Right Arm] O2 Sat by Pulse 91 L 97 94 L Oximetry 12/10/17 12/10/17 12/11/17 19:44 23:00 04:00 Temperature 97.5 F L 97.3 F L 97.5 F L Pulse Rate Pulse Rate [ Bilateral Radial] Pulse Rate [ [employer] ] Pulse Rate [ Pulse Oximetery ] Pulse Rate [ 83 89 91 Right Pulse Oximetery] Respiratory 18 14 20 Rate Blood Pressure Blood Pressure 109/59 112/59 119/70 [Left Arm] Blood Pressure [Right Arm] O2 Sat by Pulse 97 96 95 Oximetry 12/11/17 12/11/17 12/11/17 08:10 11:50 15:45 Temperature 98.1 F 97.7 F 97.3 F L Pulse Rate Pulse Rate [ Bilateral Radial] Pulse Rate [ [employer] ] Pulse Rate [ Pulse Oximetery ] Pulse Rate [ 82 98 89 Right Pulse Oximetery] Respiratory 20 18 18 Rate Blood Pressure Blood Pressure 105/56 98/50 122/71 [Left Arm] Blood Pressure [Right Arm] O2 Sat by Pulse 93 L 93 L 93 L Oximetry 12/11/17 12/12/17 12/12/17 20:00 00:00 04:00 Temperature 98.4 F 98.7 F 98 F Pulse Rate Pulse Rate [ Bilateral Radial] Pulse Rate [ [employer] ] Pulse Rate [ Pulse Oximetery ] Pulse Rate [ 94 88 98 Right Pulse Oximetery] Respiratory 20 16 18 Rate Blood Pressure Blood Pressure 117/57 116/67 [Left Arm] Blood Pressure [Right Arm] O2 Sat by Pulse 96 98 95 Oximetry 12/12/17 12/12/17 12/12/17 08:00 11:45 11:48 Temperature 97.6 F 98.7 F Pulse Rate Pulse Rate [ Bilateral Radial] Pulse Rate [ [employer] ] Pulse Rate [ Pulse Oximetery ] Pulse Rate [ 110 H 91 120 H Right Pulse Oximetery] Respiratory 18 18 18 Rate Blood Pressure Blood Pressure 141/79 111/70 [Left Arm] Blood Pressure [Right Arm] O2 Sat by Pulse 94 L 91 L Oximetry 12/12/17 12/12/17 12/13/17 16:00 20:00 00:00 Temperature 98.1 F 98.1 F 97 F L Pulse Rate Pulse Rate [ Bilateral Radial] Pulse Rate [ [employer] ] Pulse Rate [ Pulse Oximetery ] Pulse Rate [ 90 85 85 Right Pulse Oximetery] Respiratory 18 17 17 Rate Blood Pressure Blood Pressure 128/50 123/70 120/69 [Left Arm] Blood Pressure [Right Arm] O2 Sat by Pulse 90 L 94 L 93 L Oximetry 12/13/17 12/13/17 12/13/17 03:53 04:00 08:30 Temperature 97.5 F L 97.8 F Pulse Rate Pulse Rate [ Bilateral Radial] Pulse Rate [ [employer] ] Pulse Rate [ Pulse Oximetery ] Pulse Rate [ 110 H 110 H 120 H Right Pulse Oximetery] Respiratory 17 17 16 Rate Blood Pressure Blood Pressure 123/78 136/70 [Left Arm] Blood Pressure [Right Arm] O2 Sat by Pulse 92 L 95 Oximetry 12/13/17 12/13/17 12/13/17 11:35 17:35 17:37 Temperature 98.3 F Pulse Rate Pulse Rate [ Bilateral Radial] Pulse Rate [ [employer] ] Pulse Rate [ Pulse Oximetery ] Pulse Rate [ 101 H 102 H Right Pulse Oximetery] Respiratory 16 16 16 Rate Blood Pressure Blood Pressure 116/61 113/64 [Left Arm] Blood Pressure [Right Arm] O2 Sat by Pulse 96 92 L Oximetry 12/13/17 12/14/17 12/14/17 23:00 07:00 08:53 Temperature 97.2 F L 97.9 F Pulse Rate Pulse Rate [ Bilateral Radial] Pulse Rate [ [employer] ] Pulse Rate [ Pulse Oximetery ] Pulse Rate [ 97 111 H Right Pulse Oximetery] Respiratory 20 20 20 Rate Blood Pressure Blood Pressure 136/61 [Left Arm] Blood Pressure 131/78 [Right Arm] O2 Sat by Pulse 96 94 L Oximetry Patient Condition at Discharge: Good Plan - Discharge Summary Discharge Rx Participant: No New Discharge Prescriptions: New Carvedilol [Coreg] 6.25 mg PO BID-W/MEALS 30 Days #60 tab Ciprofloxacin HCl [Cipro] 500 mg PO Q12HR 7 Days #14 tablet Diltiazem Oral [Cardizem*] 60 mg PO QID 30 Days #120 tab Continue Rivaroxaban [Xarelto] 20 mg PO AC-SUPPER oxyCODONE-APAP 5-325MG [Percocet 5-325 mg] 1 tab PO BID PRN PRN Reason: Pain Zinc 50 mg PO DAILY Famotidine [Pepcid] 20 mg PO DAILY Docusate [Colace] 100 mg PO DAILY Discontinued Carvedilol [Coreg] 12.5 mg PO BID Naproxen Sodium [Aleve] 220 mg PO BID PRN PRN Reason: Pain Cephalexin [Keflex] 500 mg PO Q8H Discharge Medication List Rivaroxaban [Xarelto] 20 mg PO AC-SUPPER 10/17/17 [History] Docusate [Colace] 100 mg PO DAILY 12/05/17 [History] Famotidine [Pepcid] 20 mg PO DAILY 12/05/17 [History] Zinc 50 mg PO DAILY 12/05/17 [History] oxyCODONE-APAP 5-325MG [Percocet 5-325 mg] 1 tab PO BID PRN 12/05/17 [History] Carvedilol [Coreg] 6.25 mg PO BID-W/MEALS 30 Days #60 tab 12/14/17 [Rx] Ciprofloxacin HCl [Cipro] 500 mg PO Q12HR 7 Days #14 tablet 12/14/17 [Rx] Diltiazem Oral [Cardizem*] 60 mg PO QID 30 Days #120 tab 12/14/17 [Rx] Follow up Appointment(s)/Referral(s): [facility], [NON-STAFF] - As Needed Betsy Castillo MD [Primary Care Provider] - 1-2 days Patient Instructions/Handouts: Urinary Tract Infection in Women (DC) Discharge Disposition: TRANSFER TO SNF/ECF
--- NOTE | 2017-12-14 16:12 | PN ---
PROGRESS NOTE DATE OF SERVICE: 12/14/2017. REASON FOR FOLLOWUP: E. coli bacteremia, source likely urinary. INTERVAL HISTORY: The patient is afebrile. He is currently breathing comfortably. Denies having any chest pain, shortness of breath. No abdominal pain or any diarrhea. EXAMINATION: Blood pressure 130/78 with a pulse of 111, temperature 97.9. She is 94% on room air. General description is an elderly female up in the chair in no distress. RESPIRATORY SYSTEM: Unlabored breathing. Clear to auscultation anteriorly. HEART: S1, S2. Regular rate and rhythm. ABDOMEN: Soft, no tenderness. LABS: No new labs have been obtained today. Blood culture 12/08 has been negative. DIAGNOSTIC IMPRESSION AND PLAN: Patient with E coli bacteremia for which patient received about a week or 10 days of IV antibiotic therapy. She will be transitioned to oral Cipro for another week. Physical therapy with close outpatient followup. MMODL / IJN: [id number] /
== END 2017-12-14 15:58 | DRG 698 ==
LOC: EC 13:52 → 6SEL 15:39 → 6ICU 12-06 09:07 → 6SEL 12-07 18:37 → 4MS4W 12-13 19:37
PROVIDERS: ADMIT Hospitalist; ATTEND Hospitalist
DX: T83.511A Infection and inflammatory reaction due to indwelling urethral catheter, initial encounter (principal); A41.51 Sepsis due to Escherichia coli [E. coli]; J96.01 Acute respiratory failure with hypoxia; I50.21 Acute systolic (congestive) heart failure; I43 Cardiomyopathy in diseases classified elsewhere; E66.01 Morbid (severe) obesity due to excess calories; I27.20 Pulmonary hypertension, unspecified; Z68.43 Body mass index [BMI] 50.0-59.9, adult; M48.56XA Collapsed vertebra, not elsewhere classified, lumbar region, initial encounter for fracture; I48.2 Chronic atrial fibrillation; N39.0 Urinary tract infection, site not specified; I11.0 Hypertensive heart disease with heart failure; M41.9 Scoliosis, unspecified; N28.1 Cyst of kidney, acquired; N99.89 Other postprocedural complications and disorders of genitourinary system; R33.8 Other retention of urine; R31.0 Gross hematuria; M19.91 Primary osteoarthritis, unspecified site; G47.33 Obstructive sleep apnea (adult) (pediatric); G89.29 Other chronic pain; R26.9 Unspecified abnormalities of gait and mobility; M51.36 Other intervertebral disc degeneration, lumbar region; Z79.01 Long term (current) use of anticoagulants; Z79.899 Other long term (current) drug therapy; Z98.1 Arthrodesis status; Z95.810 Presence of automatic (implantable) cardiac defibrillator; Z96.653 Presence of artificial knee joint, bilateral; W19.XXXA Unspecified fall, initial encounter; Y92.009 Unspecified place in unspecified non-institutional (private) residence as the place of occurrence of the external cause
CPT/HCPCS: 36415; 36600; 71045; 72072; 72100; 74176; 76770; 80048; 80053; 81001; 82805; 83605; 83735; 84100; 84132; 84484; 85025; 85027; 85379; 85610; 85730; 87040; 87077; 87086; 87186; 87502; 93005; 93306; 94660; 96361; 96374; 99285

== ENCOUNTER → 2024-02-20 | Outpatient (CLI) | payer MEDICARE ==
[2024-02-21 06:36] LABS: ALT 14 U/L (8-44); AST 19 U/L (13-35); Albumin 3.9 g/dL (3.8-4.9); Albumin/Globulin Ratio 1.44 Ratio (1.60-3.17); Alkaline Phosphatase 106 U/L (41-126); BUN/Creat Ratio 17.43 Ratio (12.00-20.00); Blood Urea Nitrogen 24.4 mg/dL (9.0-27.0); Calcium 9.8 mg/dL (8.7-10.3); Carbon Dioxide 25.6 mmol/L (21.6-31.8); Chloride 104 mmol/L (96-109); Globulin 2.7 g/dL (1.6-3.3); Glucose 95 mg/dL (70-110); Potassium 5.1 mmol/L (3.5-5.5); Sodium 142 mmol/L (135-145); Total Bilirubin 0.5 mg/dL (0.3-1.2); Total Protein 6.6 g/dL (6.2-8.2)
== END | disposition home or self-care (01) ==
LOC: LABWHC1 14:48
PROVIDERS: ATTEND Nuclear Medicine Nuclear Cardiology
DX: I48.0 Paroxysmal atrial fibrillation (principal)
CPT/HCPCS: 36415; 80053; 80162